=== PATIENT | female | born 1945 | race Caucasian/White ===

== ENCOUNTER 2017-05-30 11:54 | Inpatient (IN) | payer OTHER ==
[2017-05-30 12:13] VITALS: BMI 50.6
--- NOTE | 2017-05-30 12:39 | PDOC ---
Attending Attestation - HPI HPI: 05/30/17 13:25 The patient is a 72 year old female, with a significant past medical history of COPD(on 2 L O2 at home), AFib(on), diabetes, hypertension, and hyperlipidemia, who presents to the emergency department sent by PCP Dr. Bond for evaluation of worsening dyspnea over the past 2 weeks. The patient reports progressively worsening shortness of breath, worse with exertion or when speaking over the past 2 weeks. Today, patient reports visiting her PCP Dr. Bond, who recommended she follow-up in the ED for further evaluation. Patient denies any associated chest pain, diaphoresis, or palpitations. She denies any recent fever , chills, cough, or sore throat. She denies any abdominal pain, nausea, or vomiting. She denies any recent travel or sick contacts. - Medical Decision Making 05/30/17 13:25 Documentation prepared by Josey Suresh, acting as medical office specialist for Daniella Carpenter MD. EXAM: CXR INTERPRETED BY: Dr. Landaverde REVIEWED BY: Dr. Carpenter IMPRESSION: The heart size is enlarged. There are increased interstitial markings diffusely suggesting pulmonary vascular congestion. No acute infiltrates or pleural effusions are present. SUMMARY: Cardiomegaly and mild congestion. <Josey Suresh - Last Filed: 05/30/17 17:55> - Resident Resident Name: Dilan Alicea - ED Attending Attestation I have performed the following: I have examined & evaluated the patient, The case was reviewed & discussed with the resident, I agree w/resident's findings & plan, Exceptions are as noted - Physicial Exam PE: GENERAL: Awake, alert, and fully oriented, in no acute distress HEAD: No signs of trauma EYES: PERRLA, EOMI, sclera anicteric, conjunctiva clear ENT: Auricles normal inspection, hearing grossly normal, nares patent, oropharynx clear without exudates. Moist mucosa NECK: Normal ROM, supple, no lymphadenopathy, JVD, or masses LUNGS: Dec air entry B/L, R>>L, +crackles at bases. HEART: Regular rate and rhythm, normal S1 and S2, no murmurs, rubs or gallops ABDOMEN: Soft, nontender, normoactive bowel sounds. No guarding, no rebound. No masses EXTREMITIES: Normal range of motion, severe BLE pitting edema with chronic venous stasis changes. No clubbing or cyanosis. No cords, erythema, or tenderness NEUROLOGICAL: Cranial nerves II through XII grossly intact. Normal speech. Motor and sensation intact. SKIN: Warm, Dry, normal turgor, no rashes or lesions noted. - Medical Decision Making Pt presented with worsening SOB, found to have severe anemia. Will admit for transfusion. <Daniella Carpenter - Last Filed: 06/01/17 12:03>
[2017-05-30] MEDS ORDERED: ALBUTEROL SO4 2.5/IPRATROPIUM 0.5 INH SOL 3 ML VIAL.NEB. NEB ONE ×2 (12:56→13:09)
[2017-05-30] MEDS ORDERED: predniSONE 20 MG TABLET (UD) PO ONE (12:57)
--- NOTE | 2017-05-30 12:58 | PDOC ---
History of Present Illness - General Chief Complaint: Shortness of Breath Stated Complaint: SOB (PCP SENT) Time Seen by Provider: 05/30/17 12:27 - History of Present Illness Initial Comments: 05/30/17 13:21 72F with pmh of COPD on 2L of O2 at home, A-Fib on xarelto, CHF and DM2 presenting with exacerbation of her dyspnea and weakness for the past week. Patient saw Dr. Bond this morning who referred them to the ER. Patient lives alone, not mobile due to pain in her legs due to venous stasis. Looks uncomfortable, 3 words at a time. 05/30/17 13:28 Past History - Past Medical History Allergies/Adverse Reactions: Allergies Allergy/AdvReac Type Severity Reaction Status Date / Time No Known Allergies Allergy Verified 05/30/17 12:09 Home Medications: Ambulatory Orders Amiodarone HCl 200 mg PO DAILY 05/30/17 Furosemide [Lasix] 20 mg PO TUTH 05/30/17 Metformin HCl 500 mg PO BID 05/30/17 Rivaroxaban [Xarelto -] 20 mg PO DAILY 05/30/17 Spironolactone 25 mg PO DAILY 05/30/17 Cardiac Disorders: Yes (ATRIAL FIB.) COPD: Yes (OXYGEN 2LPM N/C AT HOME.) Diabetes: Yes HTN: Yes Hypercholesterolemia: Yes - Suicide/Smoking/Psychosocial Hx Smoking History: Former smoker Have you smoked in the past 12 months: No If you are a former smoker, when did you quit?: 1970 Information on smoking cessation initiated: No Hx Alcohol Use: No Drug/Substance Use Hx: No Substance Use Type: None Review of Systems - Review of Systems Able to Perform ROS?: Yes Is the patient limited [place]uneian proficient: No Constitutional: Yes: Weakness HEENTM: No: Symptoms Reported Respiratory: Yes: See HPI, Shortness of Breath, SOB with Exertion, SOB at Rest. No: Hemoptysis Cardiac (ROS): No: Symptoms Reported ABD/GI: No: Symptoms Reported : No: Symptoms Reported All Other Systems: Reviewed and Negative *Physical Exam - Vital Signs Last Vital Signs Temp Pulse Resp BP Pulse Ox 98.3 F 82 20 149/62 96 05/30/17 12:08 05/30/17 12:08 05/30/17 12:08 05/30/17 12:08 05/30/17 12:08 - Physical Exam General Appearance: Yes: Nourished, Appropriately Dressed. No: Apparent Distress HEENT: positive: EOMI, JULIANA, Normal ENT Inspection Respiratory/Chest: positive: Chest Tender, Lungs Clear, Decreased Breath Sounds. negative: Respiratory Distress Cardiovascular: positive: Regular Rhythm, Regular Rate, S1, S2 Gastrointestinal/Abdominal: positive: Normal Bowel Sounds, Flat, Soft. negative : Tender ED Treatment Course - LABORATORY CBC & Chemistry Diagram: 05/30/17 13:10 05/30/17 13:10 Medical Decision Making - Medical Decision Making 05/30/17 17:02 COPD/CHF workup. Patient severely anemic, negative guaiac. Obtain consent for transfusion. Spoke to Dr. Bond who ask for patient to be admitted. Admitted to hospitalist *DC/Admit/Observation/Transfer Diagnosis at time of Disposition: Anemia - Discharge Dispostion Admit: Yes - Referrals - Patient Instructions - Post Discharge Activity
[2017-05-30] MEDS ORDERED: predniSONE 20 MG TABLET (UD) ONE (13:09)
[2017-05-30 13:29] LABS: BASO % 0.8 % (0-2.0); EOS % 0.5 % (0-4.5); LYMPH % 6.7 % (8-40); MCH 20.8 pg (25.7-33.7); MCHC 29.3 g/dl (32.0-36.0); MEAN CELL VOLUME 70.9 fl (80-96); MEAN PLT VOLUME 8.1 fl (7.5-11.1); MONO % 7.9 % (3.8-10.2); NEUT % 84.1 % (42.8-82.8); PLATELET COUNT 375 K/MM3 (134-434); RBC 2.54 M/mm3 (3.60-5.2); RDW 20.7 % (11.6-15.6); WHITE BLOOD COUNT 6.7 K/mm3 (4.0-10.0)
[2017-05-30 13:34] LABS: HEMOGLOBIN 5.3 GM/dL (10.7-15.3)
[2017-05-30] MEDS ORDERED: METHOCARBAMOL 500 MG TABLET PO ONE (13:40)
[2017-05-30] MEDS ORDERED: traMADol HCL 50 MG TABLET PO ONE (13:41)
[2017-05-30 13:45] LABS: URINE APPEARANCE CLEAR; URINE BILIRUBIN NEGATIVE (NEGATIVE); URINE COLOR LTYELLOW; URINE GLUCOSE (UA) NEGATIVE (NEGATIVE); URINE KETONE NEGATIVE (NEGATIVE); URINE LEUK ESTERASE TRACE (NEGATIVE); URINE NITRITE NEGATIVE (NEGATIVE); URINE PROTEIN NEGATIVE (NEGATIVE); URINE UROBILINOGEN NEGATIVE mg/dL (0.2-1.0)
[2017-05-30 13:48] LABS: EPI CELLS RARE /HPF (FEW); URINE MUCUS RARE
[2017-05-30 13:50] LABS: INR 1.49 (0.82-1.09); PROTHROMBIN TIME (PATIENT) 16.8 SEC (9.98-11.88)
[2017-05-30 13:53] LABS: ACTIVATED PTT 27.2 SECONDS (26.9-34.4)
[2017-05-30 13:54] LABS: VENOUS PC02 33.4 mmHg (38-52); VENOUS PH 7.37 (7.32-7.42); VENOUS PO2 60.7 mmHg (28-48)
[2017-05-30 14:03] LABS: ALBUMIN 3.4 g/dl (3.4-5.0); ALK PHOS 88 U/L (45-117); ANION GAP 13 (8-16); BILIRUBIN,TOTAL 0.6 mg/dL (0.2-1.0); BLOOD UREA NITROGEN 32 mg/dL (7-18); CALCIUM 8.4 mg/dL (8.5-10.1); CHLORIDE 110 mmol/L (98-107); CO2 19 mmol/L (21-32); CREATININE 1.6 mg/dL (0.55-1.02); GLUCOSE,RANDOM 109 mg/dL (74-106); POTASSIUM 4.7 mmol/L (3.5-5.1); SGOT/AST 9 U/L (15-37); SGPT/ALT 10 U/L (12-78); SODIUM 142 mmol/L (136-145); TOT PROT 6.2 g/dl (6.4-8.2)
[2017-05-30 14:06] LABS: N-TERMINAL BNP 941.01 pg/ml (5-125)
--- NOTE | 2017-05-30 14:41 | HP ---
CHIEF COMPLAINT: Dyspnea, SOB , generalized weakness PCP: HISTORY OF PRESENT ILLNESS: 72 year old female with pmhx of copd(home o2 ), Afib (on xarelto), DMII, HTN, HLD, peripheral venous stasis, h/o DVT who presented to the ED with worsening sob, dyspnea and generalized weakness was found to have hgb of 5.3 and was admitted to [facility] for further evaluation. pt reports generalized weakness since April 2017 and has been worsening for the last 2 weeks that she could not reach to bath room. pt reports light headedness when she stand up suddenly,she also complains of sob , sever fatigue , dyspnea with minimal exertion ,she sleep in chair , she could not lay flat. She reports couple times of chest pain sharp med sternal radiating to her left shoulder and left arm.the pain happened after eating but she denies any pain on exertion. She reports tingling sensation in both hands since last month. Denies any headache, sore throat, recent cold or sick contact. she reports coughing with clear phlegm and post nasal drip. She reports constipation (BM q3-4 days) but she denies abdominal N/ V or GERD symptoms. She denies any urinary symptoms, she reports chronic swelling in her LE for the last 2 years. Pt has a h/o DVT after she broke her right thigh and stayed in bed for 3 months she was on warfarin for 6 months followed by maxime. IN ED pt was found to have HGb 5.3 . pt denies any hemetemesis or blood in stool, black stool. she denies using any NSAIDS. last CBC 9 months ago was normal per her PCP. last seen by him on April for SOB. Her paper sample clerk is DR. Vicente Buck( [phone]) in [facility]. ER course was notable for: (1)Hgb 5.3 (2)BUN/Cr 32/1.6 (3)transfusion 2 units of blood (4) BIPAP , prednison 40 once , Duoneb Recent Travel:denies PAST MEDICAL HISTORY: AFIb, COPD , HTN , HLD, DM2 , peripheral venous stasis.DVT lower ext. PAST SURGICAL HISTORY: left knee replacement , s/p right femoral fx with no surgery. Social History: Smoking:quit 1969 , Alcohol:denies Drugs: denies Family History: Brother with heart attach at age of 50, father at age of 80 (unknown reason ), Mother at age of 64 (unknown reason ) Allergies No Known Allergies Allergy (Verified 05/30/17 12:09) HOME MEDICATIONS: Home Medications Medication Instructions Recorded Amiodarone HCl 200 mg PO DAILY 05/30/17 Furosemide [Lasix] 20 mg PO TUTH 05/30/17 Metformin HCl 500 mg PO BID 05/30/17 Rivaroxaban [Xarelto -] 20 mg PO DAILY 05/30/17 Spironolactone 25 mg PO DAILY 05/30/17 REVIEW OF SYSTEMS (dark bolds are positive ) CONSTITUTIONAL: Absent: fever, chills, diaphoresis, generalized weakness, malaise, loss of appetite, weight change HEENT: Absent: rhinorrhea, nasal congestion, throat pain, throat swelling, difficulty swallowing, mouth swelling, ear pain, eye pain, visual changes, post nasal drip. CARDIOVASCULAR: Absent: chest pain, syncope, palpitations, irregular heart rate, lightheadedness , peripheral edema RESPIRATORY: Absent: cough, shortness of breath, dyspnea with exertion, orthopnea, wheezing, stridor, hemoptysis GASTROINTESTINAL: Absent: abdominal pain, abdominal distension, nausea, vomiting, diarrhea, constipation, melena, hematochezia GENITOURINARY: Absent: dysuria, frequency, urgency, hesitancy, hematuria, flank pain, genital pain MUSCULOSKELETAL: Absent: myalgia, arthralgia, joint swelling, back pain, neck pain SKIN: Absent: rash, itching, pallor HEMATOLOGIC/IMMUNOLOGIC: Absent: easy bleeding, easy bruising, lymphadenopathy, frequent infections ENDOCRINE: Absent: unexplained weight gain, unexplained weight loss, heat intolerance, cold intolerance NEUROLOGIC: Absent: headache, focal weakness or paresthesias in hands , dizziness, unsteady gait, seizure, mental status changes, bladder or bowel incontinence PSYCHIATRIC: Absent: anxiety, depression, suicidal or homicidal ideation, hallucinations. PHYSICAL EXAMINATION Vital Signs - 24 hr 05/30/17 05/30/17 05/30/17 12:08 12:56 13:57 Temperature 98.3 F Pulse Rate 82 80 Respiratory 20 Rate Blood Pressure 149/62 O2 Sat by Pulse 96 95 100 Oximetry (%) GENERAL: Awake, alert, and fully oriented, in mild distress. HEAD: Normal with no signs of trauma. EYES: Pupils equal, round and reactive to light, extraocular movements intact, sclera anicteric, conjunctiva clear. EARS, NOSE, THROAT:dry mucous membranes. NECK: Normal range of motion, supple without lymphadenopathy, JVD, LUNGS: tachypnech, clear to auscultation bilaterally. No wheezes, and no crackles. HEART: Irregular Irregular , normal S1 and S2 , 3/6 holosystolic murmur in LUSB and apex , no rubs or gallop. ABDOMEN: Obese ,Soft, non tender, not distended, normoactive bowel sounds, no guarding, no rebound, UPPER EXTREMITIES: 2+ pulses, warm, well-perfused. No cyanosis. No clubbing. No peripheral edema. LOWER EXTREMITIES: 2+ pulses, warm, well-perfused. No calf tenderness. +2 peripheral edema. left leg :strength 2/5 in hip flexion ,foot dorsal felxion and plantar flexion is 5/5.sensation intact B/L NEUROLOGICAL: Cranial nerves II-XII intact. Normal speech. gait not observed. PSYCHIATRIC: Cooperative. Good eye contact. Appropriate mood and affect. SKIN: Warm, dry, peripheral venous changes with lymph edema Laboratory Results - last 24 hr 05/30/17 05/30/17 05/30/17 12:00 13:10 13:10 WBC 6.7 RBC 2.54 L Hgb 5.3 L* Hct 18.0 L MCV 70.9 L MCH 20.8 L MCHC 29.3 L RDW 20.7 H Plt Count 375 MPV 8.1 Neutrophils % 84.1 H Lymphocytes % 6.7 L Monocytes % 7.9 Eosinophils % 0.5 Basophils % 0.8 Retic Count PT with INR INR PTT (Actin FS) VBG pH 7.37 POC VBG pCO2 33.4 L POC VBG pO2 60.7 H Mixed VBG HCO3 18.9 L Sodium 142 Potassium 4.7 Chloride 110 H Carbon Dioxide 19 L Anion Gap 13 BUN 32 H Creatinine 1.6 H Creat Clearance w eGFR 31.51 Random Glucose 109 H Calcium 8.4 L Total Bilirubin 0.6 AST 9 L ALT 10 L Alkaline Phosphatase 88 LD Total Creatine Kinase 28 Troponin I 0.02 B-Natriuretic Peptide 941.01 H Total Protein 6.2 L Albumin 3.4 Urine Color Urine Appearance Urine pH Ur Specific Shasta Urine Protein Urine Glucose (UA) Urine Ketones Urine Blood Urine Nitrite Urine Bilirubin Urine Urobilinogen Ur Leukocyte Esterase Urine WBC (Auto) Urine RBC (Auto) Ur Epithelial Cells Urine Mucus Stool Occult Blood 05/30/17 05/30/17 05/30/17 13:21 13:37 13:55 WBC RBC Hgb Hct MCV MCH MCHC RDW Plt Count MPV Neutrophils % Lymphocytes % Monocytes % Eosinophils % Basophils % Retic Count 2.74 H PT with INR 16.80 H INR 1.49 H PTT (Actin FS) 27.2 VBG pH POC VBG pCO2 POC VBG pO2 Mixed VBG HCO3 Sodium Potassium Chloride Carbon Dioxide Anion Gap BUN Creatinine Creat Clearance w eGFR Random Glucose Calcium Total Bilirubin AST ALT Alkaline Phosphatase LD Total Creatine Kinase Troponin I B-Natriuretic Peptide Total Protein Albumin Urine Color Ltyellow Urine Appearance Clear Urine pH 5.0 Ur Specific [place] 1.016 Urine Protein Negative Urine Glucose (UA) Negative Urine Ketones Negative Urine Blood Negative Urine Nitrite Negative Urine Bilirubin Negative Urine Urobilinogen Negative Ur Leukocyte Esterase Trace Urine WBC (Auto) 1 Urine RBC (Auto) <1 Ur Epithelial Cells Rare Urine Mucus Rare Stool Occult Blood 05/30/17 05/30/17 13:55 13:55 WBC RBC Hgb Hct MCV MCH MCHC RDW Plt Count MPV Neutrophils % Lymphocytes % Monocytes % Eosinophils % Basophils % Retic Count PT with INR INR PTT (Actin FS) VBG pH POC VBG pCO2 POC VBG pO2 Mixed VBG HCO3 Sodium Potassium Chloride Carbon Dioxide Anion Gap BUN Creatinine Creat Clearance w eGFR Random Glucose Calcium Total Bilirubin AST ALT Alkaline Phosphatase LD Total 201 Creatine Kinase Troponin I B-Natriuretic Peptide Total Protein Albumin Urine Color Urine Appearance Urine pH Ur Specific [place] Urine Protein Urine Glucose (UA) Urine Ketones Urine Blood Urine Nitrite Urine Bilirubin Urine Urobilinogen Ur Leukocyte Esterase Urine WBC (Auto) Urine RBC (Auto) Ur Epithelial Cells Urine Mucus Stool Occult Blood Negative CBC, BMP 05/30/17 13:10 05/30/17 13:10 05/30/2017 CXR cardiomegaly with mild congestion EKG: QTC 524, NSR with new RBBB, ASSESSMENT/PLAN: 72 year old female with pmhx of copd(home o2 ), Afib (on xarelto), DMII, HTN, HLD, peripheral venous stasis, h/o DVT who presented to the ED with worsening sob, dyspnea and generalized weakness was found to have hgb of 5.3 and was admitted to tele for further evaluation. # Sever symptomatic microcytic anemia * pt has light headedness , sever fatigue, generalized weakness for last 2 months * presented with hgb 5.3 * monitor H/H q 6hr * Iron studies , b12, folic acid , TSH * 2 large IV pore * Type and screen, coagulation study * occult negative in ED * transfuse 2 units of PRBCs * start lasix 20 mg po before the transfusion and asses for over loaded after the first units, give another 2o mg lasix if seems over loaded. * GI consult for possible EGD/ Colonoscopy # dyspnes due to COPD exacerbation vs CHF exacerbation * previous smoker ,pt has cough with clear phlegm , on o2 at home , no wheezes , no accessory muscle use. * BIPAP * Duo-neb * repeat cxr in AM * received [id number] mg po in ED * CXray with cardiomegaly and mild congestion * becarbonate 19 low * continue spirnolactone , given lasix 20 mg and will reassess her volume status * F/U ECHO # JOHNY likely pre renal azotemia due to low hgb and low oral intake * transfuse 2 units * Monitor bun/cr # AFIB * rate controlled * Cardiology consult * Cont Amiodarone 200 mg po daily * hold xarelto due to possible bleed * lunchroom monitor * Echo cardiogram * TropI negative , trend # DMII * last HGBA1c 5.2 per pt * Hold metformin * ISS * BGM TID AC * Diabetic diet # Morbid obesity * consulted about losing weight and modified life style # HTN * will give lasix 20 mg once before the transfusion * continue Spirnolactone 25 mg po daily # HLD * not on any meds # peripheral venous changes * chronic for the last 2 years * hold xarelto * # H/O left femoral fx 2 years ago, * no surgery was performed , was bed bounded for 3 months after that # H/O DVT , * hold on xarelto in term of possible bleeding * US lower ext # FEN * no standing fluids * monitor BMP * npo for now # Proph * DVTS: scds apply both legs * GI: protonix 40 mg IV BID # Dispo * admit to tele * Monitor CBC Q 6 hr * trend trop Visit type - Emergency Visit Emergency Visit: Yes ED Registration Date: 05/30/17 Care time: The patient presented to the Emergency Department on the above date and was hospitalized for further evaluation of their emergent condition. - New Patient This patient is new to me today: Yes Date on this admission: 05/30/17 - Critical Care Critical Care patient: No Hospitalist Screening - Colonoscopy Questionnaire Colonoscopy Questionnaire: Colonoscopy Questionnaire - Patient: 50 - 75 years old and never had a screening colonoscopy: Unknown History of colon or rectal polyps, or CA: Unknown History of IBD, Crohn's disease or UC: No History of abdominal radiation therapy as a child: No - Relative: 1 with colon or rectal CA, or polyps at age 60 or younger: Unknown Colon or rectal CA diagnosed at age 45 or younger: No Multiple relatives with colon or rectal CA: No - Outcome: Screening Result: Negative Screen
--- NOTE | 2017-05-30 14:43 | EKG ---
Test Reason : Blood Pressure : / mmHG Vent. Rate : 081 BPM Atrial Rate : 081 BPM P-R Int : 194 ms QRS Dur : 148 ms QT Int : 452 ms P-R-T Axes : 114 002 030 degrees QTc Int : 525 ms POOR DATA QUALITY, INTERPRETATION MAY BE ADVERSELY AFFECTED NORMAL SINUS RHYTHM RIGHT BUNDLE BRANCH BLOCK ABNORMAL ECG WHEN COMPARED WITH ECG OF 14-MAY-2008 06:50, RIGHT BUNDLE BRANCH BLOCK IS NOW PRESENT MINIMAL CRITERIA FOR ANTERIOR INFARCT ARE NO LONGER PRESENT Confirmed by KAIDEN SILVA, NIRAJ ([id number]) on 05/30/2017 2:43:17 PM Referred By: Confirmed By:NIRAJ RICHEY MD
--- NOTE | 2017-05-30 15:09 | HP ---
CC: Shortness of breath PCP: Dr. Bond HPI: Briefly, 72 yo F h/o COPD on home O2 2L and A-fib on xarelto sent by PCP due to shortness of breath for weeks. Pt endorses intermittent symptom of dyspnea in the last few weeks which has been off her baseline breathing status. Pt has never had EGD or colonoscopy. She denies dizziness, appetite change, chest pain, palpitation, hematochezia, melena, hematemesis. . PMH: HTN, HLD, NIDDM type II, a-fib PSH: L knee replacement Social History: former smoker Family History: non-contributory Allergy: NKDA Home Meds: Amiodarone HCl 200 mg PO DAILY 05/30/17 Furosemide [Lasix] 20 mg PO TUTH 05/30/17 Metformin HCl 500 mg PO BID 05/30/17 Rivaroxaban [Xarelto -] 20 mg PO DAILY 05/30/17 Spironolactone 25 mg PO DAILY 05/30/17 ROS: Constitutional: no fever or loss of appetite, no weakness or weight change HEENT: No headache, nasal congestion, sore throat, ear pain, vision change Skin: No rash or lesion Cardiovascular: No chest pain or sob Pulmonary: +dyspne, No cough (dry or productive), colored sputum Endocrine: No polyuria, polydipsia, skin /hair changes, heat/cold intolerance. GI: No active abd pain, nausea or vomiting : No frequency, urgency, dysuria, or hematuria. MSK: No joint or muscle pain Psychology: No depression, anxiety, or insomnia. Physical Examination Temp Pulse Resp BP Pulse Ox 98.3 F 81 16 144/46 100 05/30/17 12:08 05/30/17 14:48 05/30/17 14:48 05/30/17 14:48 05/30/17 14:48 General: On BiPAP moderate respiratory distress, unable to speak in full sentences, AAO x 3. appropriate to stated age. Eyes: PERRLA Neck: Supple with no LAD or masses. Lymph Nodes: No cervical or inguinal LAD. Cardiovascular: RRR, S1 and S2 normal, holosystolic murmur 4/6 Lungs: obscure lung sounds Abdomen: Normoactive bowel sounds. Non-distended, No tenderness even upon deep palpation, no guarding/rebound Extremeties: No peripheral edema CBCD WBC 6.7 K/mm3 (4.0-10.0) 05/30/17 13:10 RBC 2.54 M/mm3 (3.60-5.2) L 05/30/17 13:10 Hgb 5.3 GM/dL (10.7-15.3) L* 05/30/17 13:10 Hct 18.0 % (32.4-45.2) L 05/30/17 13:10 MCV 70.9 fl (80-96) L 05/30/17 13:10 MCHC 29.3 g/dl (32.0-36.0) L 05/30/17 13:10 RDW 20.7 % (11.6-15.6) H 05/30/17 13:10 Plt Count 375 K/MM3 (134-434) 05/30/17 13:10 MPV 8.1 fl (7.5-11.1) 05/30/17 13:10 CMP Sodium 142 mmol/L (136-145) 05/30/17 13:10 Potassium 4.7 mmol/L (3.5-5.1) 05/30/17 13:10 Chloride 110 mmol/L (98-107) H 05/30/17 13:10 Carbon Dioxide 19 mmol/L (21-32) L 05/30/17 13:10 Anion Gap 13 (8-16) 05/30/17 13:10 BUN 32 mg/dL (7-18) H 05/30/17 13:10 Creatinine 1.6 mg/dL (0.55-1.02) H 05/30/17 13:10 Creat Clearance w eGFR 31.51 (>60) 05/30/17 13:10 Calcium 8.4 mg/dL (8.5-10.1) L 05/30/17 13:10 Total Bilirubin 0.6 mg/dL (0.2-1.0) 05/30/17 13:10 AST 9 U/L (15-37) L 05/30/17 13:10 ALT 10 U/L (12-78) L 05/30/17 13:10 Alkaline Phosphatase 88 U/L (45-117) 05/30/17 13:10 Total Protein 6.2 g/dl (6.4-8.2) L 05/30/17 13:10 Albumin 3.4 g/dl (3.4-5.0) 05/30/17 13:10 Imaging: CXR on 05/31: questionable b/l pleural effusion and R middle infiltrate (my read) A/P: 72 yo F h/o a-fib on xarelto, chf and COPD admitted to telemetry for dyspnea. Dyspnea - Likely 2/2 acute anemia, cannot r/o COPD or CHF exacerbation * hold xarelto * transfuse 2 PRBC * lasix 20mg IVPUSH pre and btw transfusions * recheck CBC * anemia workup in progress * will need EDG and colonoscopy * GI and cardiology consult - Cont. BiPAP maintain O2 88-92% CHF - unknown type, will contact pt's leadership development consultant - f/u ECHO - lasix 20mg IVPUSH once - cardiology onboard a-fib - Rate and rhythm controlled - Hold xarelto - Cont. amiodarone FEN - Replete lytes prn - NPO on BiPAP Prophylaxis - DVT: hold xarelto; SCDs - GI: protonix 40mg BID Dispo - Admit to [facility] PGY2 Pager: [phone] Visit type - Emergency Visit Emergency Visit: Yes ED Registration Date: 05/30/17 Care time: The patient presented to the Emergency Department on the above date and was hospitalized for further evaluation of their emergent condition. - New Patient This patient is new to me today: Yes Date on this admission: 05/31/17 - Critical Care Critical Care patient: No
[2017-05-30] MEDS ORDERED: FUROSEMIDE 40 MG/4 ML INJECTABLE VIAL IVPUSH ONE (16:10)
--- NOTE | 2017-05-30 16:36 | PN ---
Teaching Attending Note Name of Resident: Taurus Anderson ATTENDING PHYSICIAN STATEMENT I saw and evaluated the patient. I reviewed the resident's note and discussed the case with the resident. I agree with the resident's findings and plan as documented. SUBJECTIVE: Patient is c/o being sob today and has been having difficulty breathing. for many weeks now, denies having any bloody stool, denies hematoemesis or hematochezia OBJECTIVE: Vital Signs Temperature 98.3 F 05/30/17 12:08 Pulse Rate 81 05/30/17 14:48 Respiratory Rate 16 05/30/17 14:48 Blood Pressure 144/46 05/30/17 14:48 O2 Sat by Pulse Oximetry (%) 100 05/30/17 14:48 CBCD WBC 6.7 K/mm3 (4.0-10.0) 05/30/17 13:10 RBC 2.54 M/mm3 (3.60-5.2) L 05/30/17 13:10 Hgb 5.3 GM/dL (10.7-15.3) L* 05/30/17 13:10 Hct 18.0 % (32.4-45.2) L 05/30/17 13:10 MCV 70.9 fl (80-96) L 05/30/17 13:10 MCHC 29.3 g/dl (32.0-36.0) L 05/30/17 13:10 RDW 20.7 % (11.6-15.6) H 05/30/17 13:10 Plt Count 375 K/MM3 (134-434) 05/30/17 13:10 MPV 8.1 fl (7.5-11.1) 05/30/17 13:10 CMP Sodium 142 mmol/L (136-145) 05/30/17 13:10 Potassium 4.7 mmol/L (3.5-5.1) 05/30/17 13:10 Chloride 110 mmol/L (98-107) H 05/30/17 13:10 Carbon Dioxide 19 mmol/L (21-32) L 05/30/17 13:10 Anion Gap 13 (8-16) 05/30/17 13:10 BUN 32 mg/dL (7-18) H 05/30/17 13:10 Creatinine 1.6 mg/dL (0.55-1.02) H 05/30/17 13:10 Creat Clearance w eGFR 31.51 (>60) 05/30/17 13:10 Random Glucose 109 mg/dL (74-106) H 05/30/17 13:10 Calcium 8.4 mg/dL (8.5-10.1) L 05/30/17 13:10 Total Bilirubin 0.6 mg/dL (0.2-1.0) 05/30/17 13:10 AST 9 U/L (15-37) L 05/30/17 13:10 ALT 10 U/L (12-78) L 05/30/17 13:10 Alkaline Phosphatase 88 U/L (45-117) 05/30/17 13:10 Total Protein 6.2 g/dl (6.4-8.2) L 05/30/17 13:10 Albumin 3.4 g/dl (3.4-5.0) 05/30/17 13:10 CARDIAC ENZYMES Creatine Kinase 28 IU/L (26-192) 05/30/17 13:10 Troponin I 0.02 ng/ml (0.00-0.05) 05/30/17 13:10 Current Medications Generic Name Dose Route Start Last Admin Trade Name Freq PRN Reason Stop Dose Admin Insulin Aspart 1 vial 05/30/17 16:30 Novolog Vial Sliding Scale - SQ TIDAC [facility] Protocol Pantoprazole Sodium 40 mg 05/30/17 1601 Protonix - IV BID [facility] Home Medications Medication Instructions Recorded Amiodarone HCl 200 mg PO DAILY 05/30/17 Furosemide [Lasix] 20 mg PO TUTH 05/30/17 Metformin HCl 500 mg PO BID 05/30/17 Rivaroxaban [Xarelto -] 20 mg PO DAILY 05/30/17 Spironolactone 25 mg PO DAILY 05/30/17 PE: On Bipap Chest: decreased BS BL, on Bipap Heart: S1S2 positive, GYPSY 3/6 LSB abdomen: laRGE ABDOMEN, NT,NR ext: pulses are positive, positive for chronic changes with lymphedema with yellow crusting of lower extremeties ASSESSMENT AND PLAN: Patient is a 72 yo Female with h/o a-fib on xarelto, chf and COPD admitted to telemetry for having SOB and was found to have hemoglobin of 5.3. # Acute severe anemia possible due to blood loss , was found to have hemoglobin of 5.3 as per her PMD , she was within normal range 9 months ago, Protonix 40mg IV BID, type and cross and transfuse 2 units, give lasix 20mg IV x one dose prior to transfusion, will re-access if the second dose of lasix is needed in between transfusion , Hold Xarelto dose now. GI consult Dr. Koo, NPO for now # Acute severe microcytic anemia , will monitor, will transfuse 2 units # Hx of COPD on Bipap bc of SOB since is severely anemic # Afib rate controlled on Xarelto, will hold off for now, On Amiodarone , will check TSH level, cardiology consult . CEq6 x 1 more set, ekg in am # Hx of DVT on Xarelto # T2DM on Metformin hold it for now, sliding scale with coverage. # ARF due to acute blood loss, hold Metformin, transfuse , repeat H/H, monitor # Morbid Obesity will admit her to tele NPO for now DVT px: Xarelto, will hold it for now.
[2017-05-30] MEDS: INSULIN SLIDING SCALE (NOVOLOG) 1 VIAL SQ SCH (16:38)
[2017-05-30] MEDS ORDERED: SPIRONOLACTONE 25 MG TABLET (FP) ONE (16:42)
[2017-05-30] MEDS ORDERED: FUROSEMIDE 40 MG/4 ML INJECTABLE VIAL ONE (16:42)
[2017-05-30] MEDS ORDERED: PANTOPRAZOLE SODIUM 40 MG VIAL ONE (16:43)
[2017-05-30] MEDS: SPIRONOLACTONE 25 MG TABLET (FP) PO SCH (16:51)
[2017-05-30] MEDS: PANTOPRAZOLE SODIUM 40 MG VIAL IVPUSH SCH ×2 (16:51→22:13)
[2017-05-30 17:08] LABS: MCH 20.5 pg (25.7-33.7); MEAN CELL VOLUME 70.7 fl (80-96); MEAN PLT VOLUME 7.8 fl (7.5-11.1); PLATELET COUNT 368 K/MM3 (134-434); RBC 2.55 M/mm3 (3.60-5.2); RDW 20.9 % (11.6-15.6); WHITE BLOOD COUNT 6.3 K/mm3 (4.0-10.0)
[2017-05-30 17:16] LABS: HEMOGLOBIN 5.2 GM/dL (10.7-15.3)
[2017-05-30] MEDS ORDERED: PANTOPRAZOLE 40 MG TABLET (FP) PO SCH (22:00)
[2017-05-31 01:13] LABS: HEMATOCRIT 20.7 % (32.4-45.2); MCH 23.4 pg (25.7-33.7); MCHC 31.7 g/dl (32.0-36.0); MEAN CELL VOLUME 73.9 fl (80-96); MEAN PLT VOLUME 8.3 fl (7.5-11.1); PLATELET COUNT 313 K/MM3 (134-434); RBC 2.81 M/mm3 (3.60-5.2); RDW 22.5 % (11.6-15.6); WHITE BLOOD COUNT 5.2 K/mm3 (4.0-10.0)
[2017-05-31 01:28] LABS: HEMOGLOBIN 6.6 GM/dL (10.7-15.3)
[2017-05-31 02:45] LABS: HEMATOCRIT 20.8 % (32.4-45.2); MCH 22.9 pg (25.7-33.7); MEAN PLT VOLUME 8.4 fl (7.5-11.1); PLATELET COUNT 326 K/MM3 (134-434); RDW 21.8 % (11.6-15.6); WHITE BLOOD COUNT 5.1 K/mm3 (4.0-10.0)
[2017-05-31 02:53] LABS: HEMOGLOBIN 6.4 GM/dL (10.7-15.3)
[2017-05-31] MEDS ORDERED: FUROSEMIDE 40 MG/4 ML INJECTABLE VIAL IVPUSH ONE (02:59)
[2017-05-31 06:06] LABS: TRANSFERRIN 292 mg/dL (200-370)
[2017-05-31] MEDS: INSULIN SLIDING SCALE (NOVOLOG) 1 VIAL SQ SCH ×3 (06:22→17:03)
[2017-05-31 10:15] LABS: BASO % 0.5 % (0-2.0); EOS % 0.1 % (0-4.5); HEMATOCRIT 23.6 % (32.4-45.2); HEMOGLOBIN 7.7 GM/dL (10.7-15.3); LYMPH % 10.2 % (8-40); MCH 24.2 pg (25.7-33.7); MCHC 32.5 g/dl (32.0-36.0); MEAN CELL VOLUME 74.4 fl (80-96); MEAN PLT VOLUME 7.9 fl (7.5-11.1); MONO % 9.9 % (3.8-10.2); NEUT % 79.3 % (42.8-82.8); PLATELET COUNT 314 K/MM3 (134-434); RBC 3.17 M/mm3 (3.60-5.2); RDW 21.4 % (11.6-15.6); WHITE BLOOD COUNT 7.2 K/mm3 (4.0-10.0)
[2017-05-31 10:24] LABS: INR 1.16 (0.82-1.09); PROTHROMBIN TIME (PATIENT) 13.1 SEC (9.98-11.88)
[2017-05-31 10:26] LABS: ACTIVATED PTT 25.7 SECONDS (26.9-34.4)
--- NOTE | 2017-05-31 11:22 | CON.CARD ---
Cardiology Consult (text) - Consultation Consultation Note: cc: [facility] hpi: 72 f hx copd, afib, dm, htn, hld, venous insuff/le edema, here with ceja. Past 2 wks with gradually worsening ceja. Then with some rest sob/chest tightness past few days so came to er. No palps, dizzy, loc, pnd, orthopnea. + chronic le edema. Found to have severe anemia. pmh: per hpi psh: nc social: no tob fam: no premature cad ros: per hpi; no nvd, fever, muscle pain, gib, hematuria, dysuria, suresh, vision changes, cough meds: Home Medications Medication Instructions Recorded Amiodarone HCl 200 mg PO DAILY 05/30/17 Furosemide [Lasix] 20 mg PO TUTH 05/30/17 Metformin HCl 500 mg PO BID 05/30/17 Rivaroxaban [Xarelto -] 20 mg PO DAILY 05/30/17 Spironolactone 25 mg PO DAILY 05/30/17 pe: Vital Signs Period Temp Pulse Resp BP Sys/[place] Pulse Ox Last 24 Hr 97.9 F-98.3 F 55-82 16-24 126-160/46-66 95-100 nad no jvd rrr s1s2 no r/g, +m cta bl nl eff aaox3 pitting/nonpitting edema le bl with chronic stasis changes +dp pt no carotid bruits abd nt nd pos bs no jaundice diaphoresis Laboratory Last Values WBC 7.2 K/mm3 (4.0-10.0) D 05/31/17 09:40 RBC 3.17 M/mm3 (3.60-5.2) L 05/31/17 09:40 Hgb 7.7 GM/dL (10.7-15.3) L D 05/31/17 09:40 Hct 23.6 % (32.4-45.2) L 05/31/17 09:40 MCV 74.4 fl (80-96) L 05/31/17 09:40 MCH 24.2 pg (25.7-33.7) L 05/31/17 09:40 MCHC 32.5 g/dl (32.0-36.0) 05/31/17 09:40 RDW 21.4 % (11.6-15.6) H 05/31/17 09:40 Plt Count 314 K/MM3 (134-434) 05/31/17 09:40 MPV 7.9 fl (7.5-11.1) 05/31/17 09:40 Neutrophils % 79.3 % (42.8-82.8) 05/31/17 09:40 Lymphocytes % 10.2 % (8-40) D 05/31/17 09:40 Monocytes % 9.9 % (3.8-10.2) 05/31/17 09:40 Eosinophils % 0.1 % (0-4.5) 05/31/17 09:40 Basophils % 0.5 % (0-2.0) 05/31/17 09:40 Retic Count 2.74 % (0.5-1.5) H 05/30/17 13:55 Haptoglobin 255 mg/dL (34-200) H 05/30/17 13:55 PT with INR 13.10 SEC (9.98-11.88) H 05/31/17 09:40 INR 1.16 (0.82-1.09) H 05/31/17 09:40 PTT (Actin FS) 25.7 SECONDS (26.9-34.4) L 05/31/17 09:40 VBG pH 7.37 (7.32-7.42) 05/30/17 12:00 POC VBG pCO2 33.4 mmHg (38-52) L 05/30/17 12:00 POC VBG pO2 60.7 mmHg (28-48) H 05/30/17 12:00 Mixed VBG HCO3 18.9 meq/L (19-25) L 05/30/17 12:00 Sodium 142 mmol/L (136-145) 05/30/17 13:10 Potassium 4.7 mmol/L (3.5-5.1) 05/30/17 13:10 Chloride 110 mmol/L (98-107) H 05/30/17 13:10 Carbon Dioxide 19 mmol/L (21-32) L 05/30/17 13:10 Anion Gap 13 (8-16) 05/30/17 13:10 BUN 32 mg/dL (7-18) H 05/30/17 13:10 Creatinine 1.6 mg/dL (0.55-1.02) H 05/30/17 13:10 Creat Clearance w eGFR 31.51 (>60) 05/30/17 13:10 POC Glucometer 132 UNITS (80-120) 05/31/17 06:14 Random Glucose 109 mg/dL (74-106) H 05/30/17 13:10 Calcium 8.4 mg/dL (8.5-10.1) L 05/30/17 13:10 Transferrin 292 mg/dL (200-370) 05/30/17 13:55 Ferritin 8.703 ng/ml (6.9-282.5) 05/30/17 13:55 Total Bilirubin 0.6 mg/dL (0.2-1.0) 05/30/17 13:10 AST 9 U/L (15-37) L 05/30/17 13:10 ALT 10 U/L (12-78) L 05/30/17 13:10 Alkaline Phosphatase 88 U/L (45-117) 05/30/17 13:10 LD Total 201 U/L (84-246) 05/30/17 13:55 Creatine Kinase 28 IU/L (26-192) 05/30/17 13:10 Troponin I 0.02 ng/ml (0.00-0.05) 05/31/17 00:40 B-Natriuretic Peptide 941.01 pg/ml (5-125) H 05/30/17 13:10 Total Protein 6.2 g/dl (6.4-8.2) L 05/30/17 13:10 Albumin 3.4 g/dl (3.4-5.0) 05/30/17 13:10 Urine Color Ltyellow 05/30/17 13:37 Urine Appearance Clear 05/30/17 13:37 Urine pH 5.0 (5.0-8.0) 05/30/17 13:37 Ur Specific [place] 1.016 (1.001-1.035) 05/30/17 13:37 Urine Protein Negative (NEGATIVE) 05/30/17 13:37 Urine Glucose (UA) Negative (NEGATIVE) 05/30/17 13:37 Urine Ketones Negative (NEGATIVE) 05/30/17 13:37 Urine Blood Negative (NEGATIVE) 05/30/17 13:37 Urine Nitrite Negative (NEGATIVE) 05/30/17 13:37 Urine Bilirubin Negative (NEGATIVE) 05/30/17 13:37 Urine Urobilinogen Negative mg/dL (0.2-1.0) 05/30/17 13:37 Ur Leukocyte Esterase Trace (NEGATIVE) 05/30/17 13:37 Urine WBC (Auto) 1 /hpf (3-5) 05/30/17 13:37 Urine RBC (Auto) <1 /hpf (0-3) 05/30/17 13:37 Ur Epithelial Cells Rare /HPF (FEW) 05/30/17 13:37 Urine Mucus Rare 05/30/17 13:37 Stool Occult Blood Negative (NEGATIVE) 05/30/17 13:55 Blood Type O POSITIVE 05/30/17 13:30 Antibody Screen Negative 05/30/17 13:30 Crossmatch See Detail 05/30/17 13:30 ecg 05/30/17: sr, rbbb, nl intervals, no st changes tele: sr cxr: mild congestion a/p: 72 f hx copd, afib, dm, htn, hld, venous insuff/le edema, here with ceja. sob, cp, anemia: -no signs chf or acs (trop negx3) -likely sxs due to severe anemia with hgb in 5s. After prbcs pt reports feeling better. -check echo. anemia w/u per GI. No cardiac contraindications to egd/foc. pafib: -in sr now -cont amio -was on xarelto, holding due to severe anemia htn: -cont aldactone venous insuff/le edema: -cont aldactone. pt takes prn lasix 20 at home, approx twice a week -check echo
[2017-05-31 11:26] LABS: ALBUMIN 3.4 g/dl (3.4-5.0); ALK PHOS 75 U/L (45-117); ANION GAP 10 (8-16); BILIRUBIN,TOTAL 1.5 mg/dL (0.2-1.0); BLOOD UREA NITROGEN 32 mg/dL (7-18); CALCIUM 7.9 mg/dL (8.5-10.1); CHLORIDE 110 mmol/L (98-107); CO2 22 mmol/L (21-32); CREATININE 1.6 mg/dL (0.55-1.02); GLUCOSE,RANDOM 89 mg/dL (74-106); POTASSIUM 4.1 mmol/L (3.5-5.1); SGOT/AST 5 U/L (15-37); SGPT/ALT 8 U/L (12-78); SODIUM 142 mmol/L (136-145); TOT PROT 5.8 g/dl (6.4-8.2)
--- NOTE | 2017-05-31 11:40 | CON.GI ---
Consult Consult Specialty:: GI Reason for Consultation:: Symptomatic anemia - History of Present Illness History of Present Illness: Chart reviewed. Per initial intake: 72 year old female with pmhx of copd (home O2 ), Afib (on xarelto), DMII, HTN, HLD, peripheral venous stasis, h/o DVT who presented to the ED with worsening sob, dyspnea and generalized weakness was found to have hgb of 5.3 and was admitted to [facility] for further evaluation. Pt reports generalized weakness since April 2017 and has been worsening for the last 2 weeks that she could not reach to bath room. pt reports light headedness when she stand up suddenly,she also complains of sob , sever fatigue , dyspnea with minimal exertion ,she sleep in chair , she could not lay flat. She reports couple times of chest pain sharp med sternal radiating to her left shoulder and left arm.the pain happened after eating but she denies any pain on exertion. She reports tingling sensation in both hands since last month. Denies any headache, sore throat,recent cold or sick contact. she reports coughing with clear phlegm and post nasal drip. She reports constipation (BM q3-4 days) but she denies abdominal N/V or GERD symptoms. She denies any urinary symptoms, she reports chronic swelling in her LE for the last 2 years. Pt has a h/o DVT after she broke her right thigh and stayed in bed for 3 months she was on warfarin for 6 months followed by maxime. IN ED pt was found to have HGb 5.3 . pt denies any hemetemesis or blood in stool, black stool. she denies using any NSAIDS. last CBC 9 months ago was normal per her PCP. last seen by him on April for SOB. While in ED received 2 u of PRBC - History Source History Provided By: Patient, Medical Record, Caregiver - Alcohol/Substance Use Hx Alcohol Use: No - Smoking History Smoking history: Former smoker Have you smoked in the past 12 months: No If you are a former smoker, when did you quit?: 1969 Home Medications - Allergies Allergies/Adverse Reactions: Allergies Allergy/AdvReac Type Severity Reaction Status Date / Time No Known Allergies Allergy Verified 05/30/17 12:09 - Home Medications Home Medications: Ambulatory Orders Amiodarone HCl 200 mg PO DAILY 05/30/17 Furosemide [Lasix] 20 mg PO TUTH 05/30/17 Metformin HCl 500 mg PO BID 05/30/17 Rivaroxaban [Xarelto -] 20 mg PO DAILY 05/30/17 Spironolactone 25 mg PO DAILY 05/30/17 Family Disease History - Family Disease History Family History: Unremarkable Review of Systems Findings/Remarks: as per HPI, H&P Physical Exam-GI Vital Signs: Vital Signs Temperature 97.9 F 05/31/17 02:00 Pulse Rate 55 L 05/31/17 08:10 Respiratory Rate 18 05/31/17 06:10 Blood Pressure 126/59 05/31/17 06:10 O2 Sat by Pulse Oximetry (%) 98 05/31/17 08:10 Constitutional: Yes: Calm, Pallor Eyes: Yes: Conjunctiva Clear HENT: Yes: Atraumatic Neck: Yes: Supple Respiratory: Yes: Regular Gastrointestinal Inspection: No: Ascites, Distention ...Palpate: Yes: Soft. No: Firm/Rigid, Guarding, Tenderness, Tenderness, Epigastium, Tenderness, Rebound Neurological: Yes: Alert, Oriented Labs: CBC, BMP 05/31/17 09:40 05/31/17 09:40 INR, PTT INR 1.16 (0.82-1.09) H 05/31/17 09:40 Laboratory Tests 05/30/17 05/30/17 05/30/17 12:00 13:10 13:10 WBC 6.7 RBC 2.54 L Hgb 5.3 L* Hct 18.0 L MCV 70.9 L MCH 20.8 L MCHC 29.3 L RDW 20.7 H Plt Count 375 MPV 8.1 Neutrophils % 84.1 H Lymphocytes % 6.7 L Monocytes % 7.9 Eosinophils % 0.5 Basophils % 0.8 Retic Count Haptoglobin PT with INR INR PTT (Actin FS) VBG pH 7.37 POC VBG pCO2 33.4 L POC VBG pO2 60.7 H Mixed VBG HCO3 18.9 L Sodium 142 Potassium 4.7 Chloride 110 H Carbon Dioxide 19 L Anion Gap 13 BUN 32 H Creatinine 1.6 H Creat Clearance w eGFR 31.51 POC Glucometer Random Glucose 109 H Calcium 8.4 L Phosphorus Magnesium Transferrin Ferritin Total Bilirubin 0.6 AST 9 L ALT 10 L Alkaline Phosphatase 88 LD Total Creatine Kinase 28 Troponin I 0.02 B-Natriuretic Peptide 941.01 H Total Protein 6.2 L Albumin 3.4 TSH Urine Color Urine Appearance Urine pH Ur Specific [place] Urine Protein Urine Glucose (UA) Urine Ketones Urine Blood Urine Nitrite Urine Bilirubin Urine Urobilinogen Ur Leukocyte Esterase Urine WBC (Auto) Urine RBC (Auto) Ur Epithelial Cells Urine Mucus Stool Occult Blood Blood Type Antibody Screen Crossmatch 05/30/17 05/30/17 05/30/17 13:21 13:30 13:37 WBC RBC Hgb Hct MCV MCH MCHC RDW Plt Count MPV Neutrophils % Lymphocytes % Monocytes % Eosinophils % Basophils % Retic Count Haptoglobin PT with INR 16.80 H INR 1.49 H PTT (Actin FS) 27.2 VBG pH POC VBG pCO2 POC VBG pO2 Mixed VBG HCO3 Sodium Potassium Chloride Carbon Dioxide Anion Gap BUN Creatinine Creat Clearance w eGFR POC Glucometer Random Glucose Calcium Phosphorus Magnesium Transferrin Ferritin Total Bilirubin AST ALT Alkaline Phosphatase LD Total Creatine Kinase Troponin I B-Natriuretic Peptide Total Protein Albumin TSH Urine Color Ltyellow Urine Appearance Clear Urine pH 5.0 Ur Specific [place] 1.016 Urine Protein Negative Urine Glucose (UA) Negative Urine Ketones Negative Urine Blood Negative Urine Nitrite Negative Urine Bilirubin Negative Urine Urobilinogen Negative Ur Leukocyte Esterase Trace Urine WBC (Auto) 1 Urine RBC (Auto) <1 Ur Epithelial Cells Rare Urine Mucus Rare Stool Occult Blood Blood Type O POSITIVE Antibody Screen Negative Crossmatch See Detail 05/30/17 05/30/17 05/30/17 13:55 13:55 13:55 WBC RBC Hgb Hct MCV MCH MCHC RDW Plt Count MPV Neutrophils % Lymphocytes % Monocytes % Eosinophils % Basophils % Retic Count 2.74 H Haptoglobin 255 H PT with INR INR PTT (Actin FS) VBG pH POC VBG pCO2 POC VBG pO2 Mixed VBG HCO3 Sodium Potassium Chloride Carbon Dioxide Anion Gap BUN Creatinine Creat Clearance w eGFR POC Glucometer Random Glucose Calcium Phosphorus Magnesium Transferrin 292 Ferritin 8.703 Total Bilirubin AST ALT Alkaline Phosphatase LD Total 201 Creatine Kinase Troponin I B-Natriuretic Peptide Total Protein Albumin TSH Urine Color Urine Appearance Urine pH Ur Specific [place] Urine Protein Urine Glucose (UA) Urine Ketones Urine Blood Urine Nitrite Urine Bilirubin Urine Urobilinogen Ur Leukocyte Esterase Urine WBC (Auto) Urine RBC (Auto) Ur Epithelial Cells Urine Mucus Stool Occult Blood Blood Type Antibody Screen Crossmatch 05/30/17 05/30/17 05/30/17 13:55 16:36 17:00 WBC 6.3 RBC 2.55 L Hgb 5.2 L* Hct 18.0 L MCV 70.7 L MCH 20.5 L MCHC 29.0 L RDW 20.9 H Plt Count 368 MPV 7.8 Neutrophils % Lymphocytes % Monocytes % Eosinophils % Basophils % Retic Count Haptoglobin PT with INR INR PTT (Actin FS) VBG pH POC VBG pCO2 POC VBG pO2 Mixed VBG HCO3 Sodium Potassium Chloride Carbon Dioxide Anion Gap BUN Creatinine Creat Clearance w eGFR POC Glucometer 139.11404 Random Glucose Calcium Phosphorus Magnesium Transferrin Ferritin Total Bilirubin AST ALT Alkaline Phosphatase LD Total Creatine Kinase Troponin I B-Natriuretic Peptide Total Protein Albumin TSH Urine Color Urine Appearance Urine pH Ur Specific [place] Urine Protein Urine Glucose (UA) Urine Ketones Urine Blood Urine Nitrite Urine Bilirubin Urine Urobilinogen Ur Leukocyte Esterase Urine WBC (Auto) Urine RBC (Auto) Ur Epithelial Cells Urine Mucus Stool Occult Blood Negative Blood Type Antibody Screen Crossmatch 05/30/17 05/31/17 05/31/17 18:30 00:40 00:40 WBC 5.2 RBC 2.81 L Hgb 6.6 L* D Hct 20.7 L MCV 73.9 L MCH 23.4 L MCHC 31.7 L RDW 22.5 H Plt Count 313 MPV 8.3 Neutrophils % Lymphocytes % Monocytes % Eosinophils % Basophils % Retic Count Haptoglobin PT with INR INR PTT (Actin FS) VBG pH POC VBG pCO2 POC VBG pO2 Mixed VBG HCO3 Sodium Potassium Chloride Carbon Dioxide Anion Gap BUN Creatinine Creat Clearance w eGFR POC Glucometer Random Glucose Calcium Phosphorus Magnesium Transferrin Ferritin Total Bilirubin AST ALT Alkaline Phosphatase LD Total Creatine Kinase Troponin I 0.03 0.02 B-Natriuretic Peptide Total Protein Albumin TSH Urine Color Urine Appearance Urine pH Ur Specific [place] Urine Protein Urine Glucose (UA) Urine Ketones Urine Blood Urine Nitrite Urine Bilirubin Urine Urobilinogen Ur Leukocyte Esterase Urine WBC (Auto) Urine RBC (Auto) Ur Epithelial Cells Urine Mucus Stool Occult Blood Blood Type Antibody Screen Crossmatch 05/31/17 05/31/17 05/31/17 01:15 06:14 09:40 WBC 5.1 7.2 D RBC 2.80 L 3.17 L Hgb 6.4 L* 7.7 L D Hct 20.8 L 23.6 L MCV 74.0 L 74.4 L MCH 22.9 L 24.2 L MCHC 31.0 L 32.5 RDW 21.8 H 21.4 H Plt Count 326 314 MPV 8.4 7.9 Neutrophils % 79.3 Lymphocytes % 10.2 D Monocytes % 9.9 Eosinophils % 0.1 Basophils % 0.5 Retic Count Haptoglobin PT with INR INR PTT (Actin FS) VBG pH POC VBG pCO2 POC VBG pO2 Mixed VBG HCO3 Sodium Potassium Chloride Carbon Dioxide Anion Gap BUN Creatinine Creat Clearance w eGFR POC Glucometer 132 Random Glucose Calcium Phosphorus Magnesium Transferrin Ferritin Total Bilirubin AST ALT Alkaline Phosphatase LD Total Creatine Kinase Troponin I B-Natriuretic Peptide Total Protein Albumin TSH Urine Color Urine Appearance Urine pH Ur Specific [place] Urine Protein Urine Glucose (UA) Urine Ketones Urine Blood Urine Nitrite Urine Bilirubin Urine Urobilinogen Ur Leukocyte Esterase Urine WBC (Auto) Urine RBC (Auto) Ur Epithelial Cells Urine Mucus Stool Occult Blood Blood Type Antibody Screen Crossmatch 05/31/17 05/31/17 05/31/17 09:40 09:40 09:45 WBC RBC Hgb Hct MCV MCH MCHC RDW Plt Count MPV Neutrophils % Lymphocytes % Monocytes % Eosinophils % Basophils % Retic Count Haptoglobin PT with INR 13.10 H INR 1.16 H PTT (Actin FS) 25.7 L VBG pH POC VBG pCO2 POC VBG pO2 Mixed VBG HCO3 Sodium 142 Potassium 4.1 Chloride 110 H Carbon Dioxide 22 Anion Gap 10 BUN 32 H Creatinine 1.6 H Creat Clearance w eGFR 31.51 POC Glucometer Random Glucose 89 Calcium 7.9 L Phosphorus 4.0 Magnesium 2.0 Transferrin Ferritin Total Bilirubin 1.5 H D AST 5 L ALT 8 L Alkaline Phosphatase 75 LD Total Creatine Kinase Troponin I B-Natriuretic Peptide Total Protein 5.8 L Albumin 3.4 TSH 0.14 L Urine Color Urine Appearance Urine pH Ur Specific [place] Urine Protein Urine Glucose (UA) Urine Ketones Urine Blood Urine Nitrite Urine Bilirubin Urine Urobilinogen Ur Leukocyte Esterase Urine WBC (Auto) Urine RBC (Auto) Ur Epithelial Cells Urine Mucus Stool Occult Blood Blood Type Antibody Screen Crossmatch Assessment/Plan Symptomatic anemia since April of this year, progressive Anticoagulated No external signs of bleeding reported by the patient, or noted while hospitalized. Hemodynamically stable. EGD revealed no abnormalities other than small hiatal hernia. Resume low salt diet today close monitoring for the sings of bleeding Iron panel, B12, Folate, LDH, haptoglobin Keep Hgb above 7-8 g/dl, or as per cardiology Colonoscopy
[2017-05-31] MEDS: SPIRONOLACTONE 25 MG TABLET (FP) PO SCH ×2 (12:13→14:28)
[2017-05-31] MEDS: AMIODARONE HCL 200 MG TABLET (FP) PO SCH ×2 (12:14→14:28)
[2017-05-31] MEDS: PANTOPRAZOLE SODIUM 40 MG VIAL IVPUSH SCH ×2 (12:14→21:50)
--- NOTE | 2017-05-31 12:32 | PN ---
Physical Exam: SUBJECTIVE: Patient seen and examined at bedside. breathing is better today. denies any fever, chills, N/V/D.C. denies any chest pain or SOB. OBJECTIVE: Vital Signs Period Temp Pulse Resp BP Sys/[place] Pulse Ox Last 24 Hr 97.9 F-98.3 F 55-81 16-24 126-160/46-66 95-100 GENERAL: The patient is awake, alert, and fully oriented, in no acute distress. HEAD: Normal with no signs of trauma. EYES: sclera anicteric, conjunctiva clear. ENT: dry mucous membranes. NECK: supple. LUNGS: Breath sounds equal, clear to auscultation bilaterally, no wheezes, no crackles, no accessory muscle use. HEART: Regular rate and rhythm, S1, S2 3/6 systolic murmur, no rub or gallop. ABDOMEN: Obese Soft, nontender, nondistended, normoactive bowel sounds, no guarding, no rebound. EXTREMITIES: 2+ pulses, warm, well-perfused,+2 edema with peripheral venous changes and lymph edema. NEUROLOGICAL: NO focal deficit. Normal speech, gait not observed. PSYCH: Normal mood, normal affect. SKIN: Warm, dry,erythematous rash beneath the breast Laboratory Results - last 24 hr 05/30/17 05/30/17 05/30/17 12:00 13:10 13:10 WBC 6.7 RBC 2.54 L Hgb 5.3 L* Hct 18.0 L MCV 70.9 L MCH 20.8 L MCHC 29.3 L RDW 20.7 H Plt Count 375 MPV 8.1 Neutrophils % 84.1 H Lymphocytes % 6.7 L Monocytes % 7.9 Eosinophils % 0.5 Basophils % 0.8 Retic Count Haptoglobin PT with INR INR PTT (Actin FS) VBG pH 7.37 POC VBG pCO2 33.4 L POC VBG pO2 60.7 H Mixed VBG HCO3 18.9 L Sodium 142 Potassium 4.7 Chloride 110 H Carbon Dioxide 19 L Anion Gap 13 BUN 32 H Creatinine 1.6 H Creat Clearance w eGFR 31.51 POC Glucometer Random Glucose 109 H Calcium 8.4 L Phosphorus Magnesium Transferrin Ferritin Total Bilirubin 0.6 AST 9 L ALT 10 L Alkaline Phosphatase 88 LD Total Creatine Kinase 28 Troponin I 0.02 B-Natriuretic Peptide 941.01 H Total Protein 6.2 L Albumin 3.4 TSH Urine Color Urine Appearance Urine pH Ur Specific [place] Urine Protein Urine Glucose (UA) Urine Ketones Urine Blood Urine Nitrite Urine Bilirubin Urine Urobilinogen Ur Leukocyte Esterase Urine WBC (Auto) Urine RBC (Auto) Ur Epithelial Cells Urine Mucus Stool Occult Blood Blood Type Antibody Screen Crossmatch 05/30/17 05/30/17 05/30/17 13:21 13:30 13:37 WBC RBC Hgb Hct MCV MCH MCHC RDW Plt Count MPV Neutrophils % Lymphocytes % Monocytes % Eosinophils % Basophils % Retic Count Haptoglobin PT with INR 16.80 H INR 1.49 H PTT (Actin FS) 27.2 VBG pH POC VBG pCO2 POC VBG pO2 Mixed VBG HCO3 Sodium Potassium Chloride Carbon Dioxide Anion Gap BUN Creatinine Creat Clearance w eGFR POC Glucometer Random Glucose Calcium Phosphorus Magnesium Transferrin Ferritin Total Bilirubin AST ALT Alkaline Phosphatase LD Total Creatine Kinase Troponin I B-Natriuretic Peptide Total Protein Albumin TSH Urine Color Ltyellow Urine Appearance Clear Urine pH 5.0 Ur Specific [place] 1.016 Urine Protein Negative Urine Glucose (UA) Negative Urine Ketones Negative Urine Blood Negative Urine Nitrite Negative Urine Bilirubin Negative Urine Urobilinogen Negative Ur Leukocyte Esterase Trace Urine WBC (Auto) 1 Urine RBC (Auto) <1 Ur Epithelial Cells Rare Urine Mucus Rare Stool Occult Blood Blood Type O POSITIVE Antibody Screen Negative Crossmatch See Detail 05/30/17 05/30/17 05/30/17 13:55 13:55 13:55 WBC RBC Hgb Hct MCV MCH MCHC RDW Plt Count MPV Neutrophils % Lymphocytes % Monocytes % Eosinophils % Basophils % Retic Count 2.74 H Haptoglobin 255 H PT with INR INR PTT (Actin FS) VBG pH POC VBG pCO2 POC VBG pO2 Mixed VBG HCO3 Sodium Potassium Chloride Carbon Dioxide Anion Gap BUN Creatinine Creat Clearance w eGFR POC Glucometer Random Glucose Calcium Phosphorus Magnesium Transferrin 292 Ferritin 8.703 Total Bilirubin AST ALT Alkaline Phosphatase LD Total 201 Creatine Kinase Troponin I B-Natriuretic Peptide Total Protein Albumin TSH Urine Color Urine Appearance Urine pH Ur Specific [place] Urine Protein Urine Glucose (UA) Urine Ketones Urine Blood Urine Nitrite Urine Bilirubin Urine Urobilinogen Ur Leukocyte Esterase Urine WBC (Auto) Urine RBC (Auto) Ur Epithelial Cells Urine Mucus Stool Occult Blood Blood Type Antibody Screen Crossmatch 05/30/17 05/30/17 05/30/17 13:55 16:36 17:00 WBC 6.3 RBC 2.55 L Hgb 5.2 L* Hct 18.0 L MCV 70.7 L MCH 20.5 L MCHC 29.0 L RDW 20.9 H Plt Count 368 MPV 7.8 Neutrophils % Lymphocytes % Monocytes % Eosinophils % Basophils % Retic Count Haptoglobin PT with INR INR PTT (Actin FS) VBG pH POC VBG pCO2 POC VBG pO2 Mixed VBG HCO3 Sodium Potassium Chloride Carbon Dioxide Anion Gap BUN Creatinine Creat Clearance w eGFR POC Glucometer 139.24508 Random Glucose Calcium Phosphorus Magnesium Transferrin Ferritin Total Bilirubin AST ALT Alkaline Phosphatase LD Total Creatine Kinase Troponin I B-Natriuretic Peptide Total Protein Albumin TSH Urine Color Urine Appearance Urine pH Ur Specific [place] Urine Protein Urine Glucose (UA) Urine Ketones Urine Blood Urine Nitrite Urine Bilirubin Urine Urobilinogen Ur Leukocyte Esterase Urine WBC (Auto) Urine RBC (Auto) Ur Epithelial Cells Urine Mucus Stool Occult Blood Negative Blood Type Antibody Screen Crossmatch 05/30/17 05/31/17 05/31/17 18:30 00:40 00:40 WBC 5.2 RBC 2.81 L Hgb 6.6 L* D Hct 20.7 L MCV 73.9 L MCH 23.4 L MCHC 31.7 L RDW 22.5 H Plt Count 313 MPV 8.3 Neutrophils % Lymphocytes % Monocytes % Eosinophils % Basophils % Retic Count Haptoglobin PT with INR INR PTT (Actin FS) VBG pH POC VBG pCO2 POC VBG pO2 Mixed VBG HCO3 Sodium Potassium Chloride Carbon Dioxide Anion Gap BUN Creatinine Creat Clearance w eGFR POC Glucometer Random Glucose Calcium Phosphorus Magnesium Transferrin Ferritin Total Bilirubin AST ALT Alkaline Phosphatase LD Total Creatine Kinase Troponin I 0.03 0.02 B-Natriuretic Peptide Total Protein Albumin TSH Urine Color Urine Appearance Urine pH Ur Specific [place] Urine Protein Urine Glucose (UA) Urine Ketones Urine Blood Urine Nitrite Urine Bilirubin Urine Urobilinogen Ur Leukocyte Esterase Urine WBC (Auto) Urine RBC (Auto) Ur Epithelial Cells Urine Mucus Stool Occult Blood Blood Type Antibody Screen Crossmatch 05/31/17 05/31/17 05/31/17 01:15 06:14 09:40 WBC 5.1 7.2 D RBC 2.80 L 3.17 L Hgb 6.4 L* 7.7 L D Hct 20.8 L 23.6 L MCV 74.0 L 74.4 L MCH 22.9 L 24.2 L MCHC 31.0 L 32.5 RDW 21.8 H 21.4 H Plt Count 326 314 MPV 8.4 7.9 Neutrophils % 79.3 Lymphocytes % 10.2 D Monocytes % 9.9 Eosinophils % 0.1 Basophils % 0.5 Retic Count Haptoglobin PT with INR INR PTT (Actin FS) VBG pH POC VBG pCO2 POC VBG pO2 Mixed VBG HCO3 Sodium Potassium Chloride Carbon Dioxide Anion Gap BUN Creatinine Creat Clearance w eGFR POC Glucometer 132 Random Glucose Calcium Phosphorus Magnesium Transferrin Ferritin Total Bilirubin AST ALT Alkaline Phosphatase LD Total Creatine Kinase Troponin I B-Natriuretic Peptide Total Protein Albumin TSH Urine Color Urine Appearance Urine pH Ur Specific [place] Urine Protein Urine Glucose (UA) Urine Ketones Urine Blood Urine Nitrite Urine Bilirubin Urine Urobilinogen Ur Leukocyte Esterase Urine WBC (Auto) Urine RBC (Auto) Ur Epithelial Cells Urine Mucus Stool Occult Blood Blood Type Antibody Screen Crossmatch 05/31/17 05/31/17 05/31/17 09:40 09:40 09:45 WBC RBC Hgb Hct MCV MCH MCHC RDW Plt Count MPV Neutrophils % Lymphocytes % Monocytes % Eosinophils % Basophils % Retic Count Haptoglobin PT with INR 13.10 H INR 1.16 H PTT (Actin FS) 25.7 L VBG pH POC VBG pCO2 POC VBG pO2 Mixed VBG HCO3 Sodium 142 Potassium 4.1 Chloride 110 H Carbon Dioxide 22 Anion Gap 10 BUN 32 H Creatinine 1.6 H Creat Clearance w eGFR 31.51 POC Glucometer Random Glucose 89 Calcium 7.9 L Phosphorus 4.0 Magnesium 2.0 Transferrin Ferritin Total Bilirubin 1.5 H D AST 5 L ALT 8 L Alkaline Phosphatase 75 LD Total Creatine Kinase Troponin I B-Natriuretic Peptide Total Protein 5.8 L Albumin 3.4 TSH 0.14 L Urine Color Urine Appearance Urine pH Ur Specific [place] Urine Protein Urine Glucose (UA) Urine Ketones Urine Blood Urine Nitrite Urine Bilirubin Urine Urobilinogen Ur Leukocyte Esterase Urine WBC (Auto) Urine RBC (Auto) Ur Epithelial Cells Urine Mucus Stool Occult Blood Blood Type Antibody Screen Crossmatch Active Medications Generic Name Dose Route Start Last Admin Trade Name Freq PRN Reason Stop Dose Admin Albuterol/Ipratropium 1 amp 05/30/17 18:46 Duoneb - NEB Q6H PRN SHORTNESS OF BREATH Amiodarone HCl 200 mg 05/31/17 10:00 05/31/17 12:14 Cordarone - PO Not Given DAILY [facility] Insulin Aspart 1 vial 05/30/17 16:30 05/31/17 12:13 Novolog Vial Sliding Scale - SQ Not Given TIDAC [facility] Protocol Nystatin 1 applic 05/31/17 12:30 Mycostatin Cream - TP BID [facility] Pantoprazole Sodium 40 mg 05/30/17 16:30 05/31/17 12:14 Protonix Iv IVPUSH Not Given BID [facility] Spironolactone 25 mg 05/30/17 16:30 05/31/17 12:13 Aldactone - PO Not Given DAILY [facility] CBC, BMP 05/31/17 09:40 05/31/17 09:40 05/30/2017 CXR cardiomegaly with mild congestion EKG: QTC 524, NSR with new RBBB, ASSESSMENT/PLAN: 72 year old female with pmhx of copd(home o2 ), Afib (on xarelto), DMII, HTN, HLD, peripheral venous stasis, h/o DVT who presented to the ED with worsening sob, dyspnea and generalized weakness was found to have hgb of 5.3 and was admitted to [facility] for further evaluation. # Sever symptomatic microcytic anemia * pt has light headedness , sever fatigue, generalized weakness for last 2 months * presented with hgb 5.3 * monitor H/H q 6hr * Iron studies , b12, folic acid , TSH * 2 large IV pore * Type and screen, coagulation study * occult negative in ED * transfuse 2 units of PRBCs * start lasix 20 mg po before the transfusion and asses for over loaded after the first units, give another 2o mg lasix if seems over loaded. * GI consult for possible EGD/ Colonoscopy # Acute on chronic respiratory failure , resolving , * likely due to anemia vs COPD exacerbation vs CHF exacerbation unlikely * O2 as needed to keep O2 >89% * BIPAP PRN * Duo-neb PRN * CXray with cardiomegaly and mild congestion * continue spirnolactone , * F/U ECHO # JOHNY on chronic CKD likely pre renal azotemia due to low hgb and low oral intake * transfuse 2 units * Monitor bun/cr # AFIB * rate controlled * Cardiology consult Dr.Gittig martínezi ue current management * Cont Amiodarone 200 mg po daily * hold xarelto due to possible bleeding * registered nurse cardiac telemetry * Echo cardiogram * TropI negative x3 # DMII * last HGBA1c 5.2 per pt * Hold metformin * ISS * BGM TID AC * Diabetic diet # Morbid obesity * consulted about losing weight and modified life style # HTN * will give lasix 20 mg once before the transfusion * continue Spirnolactone 25 mg po daily # HLD * not on any meds # peripheral venous changes * chronic for the last 2 years * hold xarelto * # H/O left femoral fx 2 years ago, * no surgery was performed , was bed bounded for 3 months after that # H/O DVT , * hold on xarelto in term of possible bleeding * US lower ext # FEN * no standing fluids * monitor BMP * npo for now # Proph * DVTS: scds apply both legs * GI: protonix 40 mg IV BID # Dispo * admit to tele * Monitor CBC Q 6 hr Visit type - Emergency Visit Emergency Visit: Yes ED Registration Date: 05/30/17 Care time: The patient presented to the Emergency Department on the above date and was hospitalized for further evaluation of their emergent condition. - New Patient This patient is new to me today: No - Critical Care Critical Care patient: No
[2017-05-31] MEDS ORDERED: PROPOFOL 20 ML ONE (12:45)
[2017-05-31] MEDS ORDERED: LIDOCAINE HCL/PF 2% SDV 5ML VIAL ONE (12:45)
[2017-05-31] MEDS ORDERED: MIDAZOLAM HCL 2 MG/2 ML SINGLE DOSE VIAL ONE (12:45)
--- NOTE | 2017-05-31 13:19 | PN ---
Teaching Attending Note Name of Resident: Taurus Anderson ATTENDING PHYSICIAN STATEMENT I saw and evaluated the patient. I reviewed the resident's note and discussed the case with the resident. I agree with the resident's findings and plan as documented. SUBJECTIVE: Patient is comfortable with no acute distress, no shortness of breath, feels better. Patient is going for EGD OBJECTIVE: Vital Signs Temperature 97.9 F 05/31/17 02:00 Pulse Rate 55 L 05/31/17 08:10 Respiratory Rate 18 05/31/17 09:00 Blood Pressure 126/59 05/31/17 06:10 O2 Sat by Pulse Oximetry (%) 98 05/31/17 09:00 CBCD WBC 7.2 K/mm3 (4.0-10.0) D 05/31/17 09:40 RBC 3.17 M/mm3 (3.60-5.2) L 05/31/17 09:40 Hgb 7.7 GM/dL (10.7-15.3) L D 05/31/17 09:40 Hct 23.6 % (32.4-45.2) L 05/31/17 09:40 MCV 74.4 fl (80-96) L 05/31/17 09:40 MCHC 32.5 g/dl (32.0-36.0) 05/31/17 09:40 RDW 21.4 % (11.6-15.6) H 05/31/17 09:40 Plt Count 314 K/MM3 (134-434) 05/31/17 09:40 MPV 7.9 fl (7.5-11.1) 05/31/17 09:40 CMP Sodium 142 mmol/L (136-145) 05/31/17 09:40 Potassium 4.1 mmol/L (3.5-5.1) 05/31/17 09:40 Chloride 110 mmol/L (98-107) H 05/31/17 09:40 Carbon Dioxide 22 mmol/L (21-32) 05/31/17 09:40 Anion Gap 10 (8-16) 05/31/17 09:40 BUN 32 mg/dL (7-18) H 05/31/17 09:40 Creatinine 1.6 mg/dL (0.55-1.02) H 05/31/17 09:40 Creat Clearance w eGFR 31.51 (>60) 05/31/17 09:40 Random Glucose 89 mg/dL (74-106) 05/31/17 09:40 Calcium 7.9 mg/dL (8.5-10.1) L 05/31/17 09:40 Total Bilirubin 1.5 mg/dL (0.2-1.0) H D 05/31/17 09:40 AST 5 U/L (15-37) L 05/31/17 09:40 ALT 8 U/L (12-78) L 05/31/17 09:40 Alkaline Phosphatase 75 U/L (45-117) 05/31/17 09:40 Total Protein 5.8 g/dl (6.4-8.2) L 05/31/17 09:40 Albumin 3.4 g/dl (3.4-5.0) 05/31/17 09:40 CARDIAC ENZYMES Creatine Kinase 28 IU/L (26-192) 05/30/17 13:10 Troponin I 0.02 ng/ml (0.00-0.05) 05/31/17 00:40 Current Medications Generic Name Dose Route Start Last Admin Trade Name Freq PRN Reason Stop Dose Admin Albuterol/Ipratropium 1 amp 05/30/17 18:46 Duoneb - NEB Q6H PRN SHORTNESS OF BREATH Amiodarone HCl 200 mg 05/31/17 10:00 05/31/17 12:14 Cordarone - PO Not Given DAILY [facility] Insulin Aspart 1 vial 05/30/17 16:30 05/31/17 12:13 Novolog Vial Sliding Scale - SQ Not Given TIDAC [facility] Protocol Nystatin 1 applic 05/31/17 12:30 Mycostatin Cream - TP BID [facility] Pantoprazole Sodium 40 mg 05/30/17 16:30 05/31/17 12:14 Protonix Iv IVPUSH Not Given BID [facility] Spironolactone 25 mg 05/30/17 16:30 05/31/17 12:13 Aldactone - PO Not Given DAILY [facility] Home Medications Medication Instructions Recorded Amiodarone HCl 200 mg PO DAILY 05/30/17 Furosemide [Lasix] 20 mg PO TUTH 05/30/17 Metformin HCl 500 mg PO BID 05/30/17 Rivaroxaban [Xarelto -] 20 mg PO DAILY 05/30/17 Spironolactone 25 mg PO DAILY 05/30/17 PE: comfortable, off Bipap, NAD, on 2 L NC Chest: Decreased BS BL otherwise no crackles Heart: S1S2 positive, Brittni 06/05 aBDOMEN: SOFT,Nt, Obese extremities: Chronic changes, with yellow crusting lymphedema bl ECHO: Moderate , MILD AR, ejf 59% cxr: MILD CONGESTION ASSESSMENT AND PLAN: Patient is a 72 yo Female with h/o a-fib on xarelto, chf and COPD admitted to telemetry for having SOB and was found to have hemoglobin of 5.3. # Acute severe anemia possible due to blood loss , S/P 2 UNIT OF BLOOD TRANSFUSION hemoglobin 5.3-->7.7 now , Gi AND CARDIO ARE ON THE CASE. for Colonoscopy on Sunday and EGD. today. was found to have hemoglobin of 5.3 as per her PMD , she was within normal range 9 months ago, Protonix 40mg IV BID, Hold Xarelto dose for now. GI consult Dr. Koo appreciated, going for EGD today stool ocb # Acute severe microcytic anemia , will monitor, s/p 2 units of PRBC, hemoglobin is 7.7 today # Hx of COPD off Bipap now , patient is no longer on Bipap # Afib rate controlled OFF Xarelto for now since was found to have low hemoglobin , will continue to hold now, continue Amiodarone , will check TSH level is low, will check Free T4 and Free T3, cardiology consult appreciated . CEq6 x 3 neg. # Hx of DVT on Xarelto will hold off for now, duplex of LE # T2DM on Metformin hold it for now, sliding scale with coverage. # ARF due to acute blood loss, hold Metformin, transfuse , repeat H/H, monitor # Morbid Obesity NPO for now DVT px: Xarelto, will hold it for now.
--- NOTE | 2017-05-31 13:45 | PROC ---
Endoscopy Procedure Endoscopy procedure completed. Please see scanned procedure report. small hiatal hernia, otherwise normal EGD
--- NOTE | 2017-05-31 15:48 | PN ---
Progress Note (short form) - Note Progress Note: Colonoscopy scheduled in AM. Pt's aware
[2017-05-31] MEDS ORDERED: BISACODYL 5 MG TABLET.DR (FP) PO ONE (16:15)
[2017-05-31] MEDS: NYSTATIN 100,000 UNIT/GM TOPICAL CREAM 15 GM TUBE TP SCH ×2 (16:21→21:50)
[2017-05-31] MEDS: MINERAL OIL/PET HY-PHL TOPICAL OINTMENT 454 GM JAR TP SCH ×2 (16:21→21:51)
[2017-05-31 16:39] LABS: HEMATOCRIT 23.9 % (32.4-45.2); HEMOGLOBIN 7.7 GM/dL (10.7-15.3); MCH 24.2 pg (25.7-33.7); MCHC 32.2 g/dl (32.0-36.0); MEAN CELL VOLUME 75.1 fl (80-96); MEAN PLT VOLUME 8.2 fl (7.5-11.1); PLATELET COUNT 328 K/MM3 (134-434); RBC 3.18 M/mm3 (3.60-5.2); RDW 21.4 % (11.6-15.6); WHITE BLOOD COUNT 10.1 K/mm3 (4.0-10.0)
--- NOTE | 2017-05-31 16:56 | CONSULT ---
Consult Consult Specialty:: Hematology - History of Present Illness History of Present Illness: 72 yo Female with h/o a-fib on xarelto, chf and COPD admitted to telemetry for having SOB and was found to have hemoglobin of 5.3. s/p normal EGD Patient seen and examined. Hematology consulted for severe anemia. - History Source History Provided By: Patient, Friend, Medical Record Limitations to Obtaining History: No Limitations - Alcohol/Substance Use Hx Alcohol Use: No - Smoking History Smoking history: Former smoker Have you smoked in the past 12 months: No If you are a former smoker, when did you quit?: 1970 Home Medications - Allergies Allergies/Adverse Reactions: Allergies Allergy/AdvReac Type Severity Reaction Status Date / Time No Known Allergies Allergy Verified 05/30/17 12:09 - Home Medications Home Medications: Ambulatory Orders Amiodarone HCl 200 mg PO DAILY 05/30/17 Furosemide [Lasix] 20 mg PO TUTH 05/30/17 Metformin HCl 500 mg PO BID 05/30/17 Rivaroxaban [Xarelto -] 20 mg PO DAILY 05/30/17 Spironolactone 25 mg PO DAILY 05/30/17 Family Disease History - Family Disease History Family History: Denies Review of Systems - Review of Systems Constitutional: denies: Chills, Diaphoresis, Fever, Lethargy, Loss of Appetite Neck: denies: Decreased ROM, Lumps, Pain on Movement Cardiovascular: denies: Chest Pain, Edema, Palpitations, Shortness of Breath Respiratory: reports: No Symptoms Gastrointestinal: denies: Abdominal Pain, Bloating, Constipation, Diarrhea, Indigestion, Melena, Nausea, Rectal Bleeding, Vomiting Genitourinary: reports: No Symptoms Breasts: reports: No Symptoms Reported Musculoskeletal: reports: No Symptoms Integumentary: reports: No Symptoms Hematology/Lymphatic: reports: No Symptoms Psychiatric: reports: No Symptoms Physical Exam Vital Signs: Vital Signs Temperature 98.7 F 05/31/17 13:19 Pulse Rate 66 05/31/17 13:52 Respiratory Rate 22 05/31/17 13:52 Blood Pressure 165/75 05/31/17 13:52 O2 Sat by Pulse Oximetry (%) 98 05/31/17 13:52 Constitutional: Yes: No Distress, Calm, Anxious Eyes: Yes: Conjunctiva Clear HENT: Yes: Atraumatic, Normocephalic Neck: Yes: Supple, Trachea Midline Cardiovascular: Yes: Regular Rate and Rhythm Respiratory: Yes: Regular, CTA Bilaterally Gastrointestinal: Yes: Normal Bowel Sounds, Soft, Abdomen, Obese Musculoskeletal: Yes: WNL Extremities: Yes: Erythema, Other (blisters+) Edema: Yes Edema: LLE: 3+, RLE: 3+ Integumentary: Yes: WNL Wound/Incision: Yes: Clean/Dry, Well Approximated Neurological: Yes: Alert, Oriented Psychiatric: Yes: Alert, Oriented Labs: CBC, BMP 05/31/17 15:40 05/31/17 09:40 Imaging - Results Chest X-ray: Report Reviewed Assessment/Plan Severe Fe-Def anemia. (ferritin of 8) Likely chronic, MCV of 70, under no known hemoglobinopathy. for GI w/u EGD negative for colonoscopy, will follow on results await most of the screening anemia labs ordered. benefit from parenteral iron Other: COPD Afib , ?h/o DVT on AC ( now held due to severe anemia ) chronic LE edema/venous insufficiency
[2017-05-31] MEDS ORDERED: PEG 3350/NA SULF BICARB CL/KCL 4000 ML SOLN.RECON PO ONE (17:00)
[2017-05-31] MEDS: ATORVASTATIN CA 20 MG TABLET (FP) PO SCH (21:51)
[2017-06-01] MEDS: INSULIN SLIDING SCALE (NOVOLOG) 1 VIAL SQ SCH ×3 (05:59→18:22)
[2017-06-01 06:08] LABS: SERUM IRON SATURATION 3 % (15-55); TOTAL IRON BINDING CAPACITY 362 ug/dL (250-450); UIBC 351 ug/dL (118-369)
[2017-06-01 07:32] LABS: BASO % 0.7 % (0-2.0); EOS % 1.2 % (0-4.5); HEMATOCRIT 23.9 % (32.4-45.2); HEMOGLOBIN 7.7 GM/dL (10.7-15.3); LYMPH % 8.7 % (8-40); MCH 24.2 pg (25.7-33.7); MCHC 32.2 g/dl (32.0-36.0); MEAN CELL VOLUME 75.2 fl (80-96); MEAN PLT VOLUME 8.4 fl (7.5-11.1); MONO % 6.8 % (3.8-10.2); NEUT % 82.6 % (42.8-82.8); PLATELET COUNT 311 K/MM3 (134-434); RBC 3.18 M/mm3 (3.60-5.2); RDW 21.9 % (11.6-15.6); WHITE BLOOD COUNT 8.6 K/mm3 (4.0-10.0)
[2017-06-01 08:26] LABS: BLOOD UREA NITROGEN 28 mg/dL (7-18); CREATININE 1.5 mg/dL (0.55-1.02); GLUCOSE,RANDOM 91 mg/dL (74-106)
[2017-06-01 08:27] LABS: ALBUMIN 3.2 g/dl (3.4-5.0); ANION GAP 10 (8-16); BILIRUBIN,TOTAL 1.1 mg/dL (0.2-1.0); CALCIUM 7.6 mg/dL (8.5-10.1); CHLORIDE 109 mmol/L (98-107); CO2 24 mmol/L (21-32); POTASSIUM 4.2 mmol/L (3.5-5.1); SGOT/AST 8 U/L (15-37); SGPT/ALT 9 U/L (12-78); SODIUM 143 mmol/L (136-145); TOT PROT 5.4 g/dl (6.4-8.2)
[2017-06-01 08:28] LABS: ALK PHOS 72 U/L (45-117)
--- NOTE | 2017-06-01 08:51 | PN ---
Physical Exam: SUBJECTIVE: Patient seen and examined at bedside. NPO since mid night for colonoscopy today. denies any fever, chills, N/V. had diarrhea due to colon prep. OBJECTIVE: Vital Signs Period Temp Pulse Resp BP Sys/[place] Pulse Ox Last 24 Hr 97.7 F-98.8 F 65-82 18-22 134-166/46-88 94-99 GENERAL: The patient is awake, alert, and fully oriented, in no acute distress. HEAD: Normal with no signs of trauma. EYES: sclera anicteric, conjunctiva clear. ENT: dry mucous membranes. NECK: supple. LUNGS: Breath sounds equal, clear to auscultation bilaterally, no wheezes, no crackles, no accessory muscle use. HEART: Regular rate and rhythm, S1, S2 3/6 systolic murmur, no rub or gallop. ABDOMEN: Obese Soft, nontender, nondistended, normoactive bowel sounds, no guarding, no rebound. EXTREMITIES: 2+ pulses, warm, well-perfused,+2 edema with peripheral venous changes and lymph edema. NEUROLOGICAL: NO focal deficit. Normal speech, gait not observed. PSYCH: Normal mood, normal affect. SKIN: Warm, dry,erythematous rash beneath the breast,B/L peripheral venous changes. Laboratory Results - last 24 hr 05/30/17 05/30/17 05/31/17 12:00 12:00 09:40 WBC 7.2 D RBC 3.17 L Hgb 7.7 L D Hct 23.6 L MCV 74.4 L MCH 24.2 L MCHC 32.5 RDW 21.4 H Plt Count 314 MPV 7.9 Neutrophils % 79.3 Lymphocytes % 10.2 D Monocytes % 9.9 Eosinophils % 0.1 Basophils % 0.5 PT with INR INR PTT (Actin FS) Sodium Potassium Chloride Carbon Dioxide Anion Gap BUN Creatinine Creat Clearance w eGFR POC Glucometer Random Glucose Hemoglobin A1c % 5.2 Calcium Phosphorus Magnesium Iron 11 L TIBC 362 Iron Saturation 3 L Total Bilirubin AST ALT Alkaline Phosphatase Total Protein Albumin TSH Free T4 05/31/17 05/31/17 05/31/17 09:40 09:40 09:45 WBC RBC Hgb Hct MCV MCH MCHC RDW Plt Count MPV Neutrophils % Lymphocytes % Monocytes % Eosinophils % Basophils % PT with INR 13.10 H INR 1.16 H PTT (Actin FS) 25.7 L Sodium 142 Potassium 4.1 Chloride 110 H Carbon Dioxide 22 Anion Gap 10 BUN 32 H Creatinine 1.6 H Creat Clearance w eGFR 31.51 POC Glucometer Random Glucose 89 Hemoglobin A1c % Calcium 7.9 L Phosphorus 4.0 Magnesium 2.0 Iron TIBC Iron Saturation Total Bilirubin 1.5 H D AST 5 L ALT 8 L Alkaline Phosphatase 75 Total Protein 5.8 L Albumin 3.4 TSH 0.14 L Free T4 05/31/17 05/31/17 06/01/17 15:40 17:02 05:29 WBC 10.1 H D RBC 3.18 L Hgb 7.7 L Hct 23.9 L MCV 75.1 L MCH 24.2 L MCHC 32.2 RDW 21.4 H Plt Count 328 MPV 8.2 Neutrophils % Lymphocytes % Monocytes % Eosinophils % Basophils % PT with INR INR PTT (Actin FS) Sodium Potassium Chloride Carbon Dioxide Anion Gap BUN Creatinine Creat Clearance w eGFR POC Glucometer 105 121 Random Glucose Hemoglobin A1c % Calcium Phosphorus Magnesium Iron TIBC Iron Saturation Total Bilirubin AST ALT Alkaline Phosphatase Total Protein Albumin TSH Free T4 06/01/17 06/01/17 06/01/17 06:40 06:48 06:48 WBC RBC Hgb Hct MCV MCH MCHC RDW Plt Count MPV Neutrophils % Lymphocytes % Monocytes % Eosinophils % Basophils % PT with INR INR PTT (Actin FS) Sodium 143 Cancelled Potassium 4.2 Cancelled Chloride 109 H Cancelled Carbon Dioxide 24 Cancelled Anion Gap 10 Cancelled BUN 28 H Cancelled Creatinine 1.5 H Cancelled Creat Clearance w eGFR 33.94 Cancelled POC Glucometer Random Glucose 91 Cancelled Hemoglobin A1c % Calcium 7.6 L Cancelled Phosphorus Magnesium Iron TIBC Iron Saturation Total Bilirubin 1.1 H D Cancelled AST 8 L Cancelled ALT 9 L Cancelled Alkaline Phosphatase 72 Cancelled Total Protein 5.4 L Cancelled Albumin 3.2 L Cancelled TSH 0.10 L Free T4 1.94 H 06/01/17 06:48 WBC 8.6 RBC 3.18 L Hgb 7.7 L Hct 23.9 L MCV 75.2 L MCH 24.2 L MCHC 32.2 RDW 21.9 H Plt Count 311 MPV 8.4 Neutrophils % 82.6 Lymphocytes % 8.7 Monocytes % 6.8 Eosinophils % 1.2 D Basophils % 0.7 PT with INR INR PTT (Actin FS) Sodium Potassium Chloride Carbon Dioxide Anion Gap BUN Creatinine Creat Clearance w eGFR POC Glucometer Random Glucose Hemoglobin A1c % Calcium Phosphorus Magnesium Iron TIBC Iron Saturation Total Bilirubin AST ALT Alkaline Phosphatase Total Protein Albumin TSH Free T4 Active Medications Generic Name Dose Route Start Last Admin Trade Name Freq PRN Reason Stop Dose Admin Albuterol/Ipratropium 1 amp 05/30/17 18:46 Duoneb - NEB Q6H PRN SHORTNESS OF BREATH Amiodarone HCl 200 mg 05/31/17 10:00 05/31/17 14:28 Cordarone - PO 200 mg DAILY RABIA Administration Atorvastatin Calcium 20 mg 05/31/17 22:00 05/31/17 21:51 Lipitor - PO 20 mg HS RABIA Administration Emollient Ointment 1 applic 05/31/17 13:45 05/31/17 21:51 Aquaphor - TP 1 applic BID RABIA Administration Insulin Aspart 1 vial 05/30/17 16:30 06/01/17 05:59 Novolog Vial Sliding Scale - SQ Not Given TIDAC [facility] Protocol Nystatin 1 applic 05/31/17 12:30 05/31/17 21:50 Mycostatin Cream - TP 1 applic BID RABIA Administration Pantoprazole Sodium 40 mg 05/30/17 16:30 05/31/17 21:50 Protonix Iv IVPUSH 40 mg BID RABIA Administration Spironolactone 25 mg 05/30/17 16:30 05/31/17 14:28 Aldactone - PO 25 mg DAILY RABIA Administration CBC, BMP 06/01/17 06:48 05/30/2017 CXR cardiomegaly with mild congestion EKG: QTC 524, NSR with new RBBB, ASSESSMENT/PLAN: 72 year old female with pmhx of copd(home o2 ), Afib (on xarelto), DMII, HTN, HLD, peripheral venous stasis, h/o DVT who presented to the ED with worsening sob, dyspnea and generalized weakness was found to have hgb of 5.3 and was admitted to [facility] for further evaluation. # Sever symptomatic microcytic anemia , due to chronic iron deficiency * presented with hgb 5.3 S/P 3 units of PRBCS * monitor H/H daily * Iron studies , b12, folic acid , TSH * GI consult : EGD negative for any bleeding , Colonoscopy today # Acute on chronic respiratory failure , resolving , * likely due to anemia vs COPD exacerbation vs CHF exacerbation unlikely * O2 as needed to keep O2 >89% * BIPAP PRN * Duo-neb PRN * CX-ray with cardiomegaly and mild congestion * continue spirnolactone , Lasix 20 mg pO PRN * F/U ECHO: EF 59.3 # JOHNY on chronic CKD likely pre renal azotemia due to low hgb and low oral intake , improving * Monitor bun/cr # AFIB * rate controlled * Cardiology consult continue current management * Cont Amiodarone 200 mg po daily * hold xarelto due to possible bleeding * 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 [employer] * Echo cardiogram * TropI negative x3 #H/O DMII * last HGBA1c 5.2 per pt * Hold metformin * ISS * BGM TID AC * Diabetic diet # Morbid obesity * consulted about losing weight and modified life style # HTN * lasix 20 mg PRN if over loaded * continue Spirnolactone 25 mg po daily # HLD * started on Lipitor 20 mg po daily # peripheral venous changes * chronic for the last 2 years * hold xarelto * Aquaphore topical BID # H/O left femoral fx 2 years ago, * no surgery was performed , was bed bounded for 3 months after that * PT as tolerated # H/O DVT , * hold on xarelto in term of possible bleeding * US lower ext # FEN * no standing fluids * monitor BMP * npo for now # Proph * DVTS: scds apply both legs * GI: protonix 40 mg IV BID # Dispo * admit to tele * Monitor CBC Q 6 hr Visit type - Emergency Visit Emergency Visit: Yes ED Registration Date: 05/30/17 Care time: The patient presented to the Emergency Department on the above date and was hospitalized for further evaluation of their emergent condition. - New Patient This patient is new to me today: No - Critical Care Critical Care patient: No
[2017-06-01] MEDS: PANTOPRAZOLE SODIUM 40 MG VIAL IVPUSH SCH ×2 (10:00→22:29)
[2017-06-01] MEDS: MINERAL OIL/PET HY-PHL TOPICAL OINTMENT 454 GM JAR TP SCH ×2 (10:00→22:29)
[2017-06-01] MEDS: NYSTATIN 100,000 UNIT/GM TOPICAL CREAM 15 GM TUBE TP SCH ×2 (10:00→22:29)
--- NOTE | 2017-06-01 10:17 | EKG ---
Test Reason : Blood Pressure : / mmHG Vent. Rate : 066 BPM Atrial Rate : 066 BPM P-R Int : 184 ms QRS Dur : 164 ms QT Int : 464 ms P-R-T Axes : 087 021 035 degrees QTc Int : 486 ms NORMAL SINUS RHYTHM RIGHT BUNDLE BRANCH BLOCK ABNORMAL ECG WHEN COMPARED WITH ECG OF 30-MAY-2017 13:47, NO SIGNIFICANT CHANGE WAS FOUND Confirmed by TITA ALCARAZ MD ([id number]) on 06/01/2017 10:17:35 AM Referred By: Confirmed By:TITA ALCARAZ MD
[2017-06-01] MEDS ORDERED: ETOMIDATE 20 MG/10 ML AMPUL IVPUSH ONE (10:32)
[2017-06-01] MEDS ORDERED: LIDOCAINE HCL/PF 2% SDV 5ML VIAL ONE (10:32)
[2017-06-01] MEDS ORDERED: PROPOFOL 20 ML ONE (10:32)
--- NOTE | 2017-06-01 11:53 | PROC ---
Endoscopy Procedure Endoscopy procedure completed. Please see scanned procedure report. cecal mass ascending colon mass transverse and rectal polyps Sx aware Oncology, Cardiology, and Pulmonary consults CT w C/A/P CEA 3 u PRBC Semisolid stool in the left colon, repeat colonoscopy to examine the left colon for lesion before surgical intervention
--- NOTE | 2017-06-01 12:20 | PN ---
Progress Note (short form) - Note Progress Note: s: feeling well post foc. no cp sob dizzy palps o: Vital Signs Period Temp Pulse Resp BP Sys/[place] Pulse Ox Last 24 Hr 97.7 F-98.8 F 65-82 18-22 134-166/46-88 94-99 nad no jvd rrr s1s2 no r/g, + murmur cta bl nl eff pitting/nonpitting edema le bl with chronic stasis changes abd nt nd pos bs no jaundice diaphoresis Current Medications Generic Name Dose Route Start Last Admin Trade Name Freq PRN Reason Stop Dose Admin Albuterol/Ipratropium 1 amp 05/30/17 18:46 Duoneb - NEB Q6H PRN SHORTNESS OF BREATH Amiodarone HCl 200 mg 05/31/17 10:00 05/31/17 14:28 Cordarone - PO 200 mg DAILY RABIA Administration Atorvastatin Calcium 20 mg 05/31/17 22:00 05/31/17 21:51 Lipitor - PO 20 mg HS RABIA Administration Emollient Ointment 1 applic 05/31/17 13:45 05/31/17 21:51 Aquaphor - TP 1 applic BID RABIA Administration Insulin Aspart 1 vial 05/30/17 16:30 06/01/17 05:59 Novolog Vial Sliding Scale - SQ Not Given TIDAC [facility] Protocol Nystatin 1 applic 05/31/17 12:30 05/31/17 21:50 Mycostatin Cream - TP 1 applic BID RABIA Administration Pantoprazole Sodium 40 mg 05/30/17 16:30 05/31/17 21:50 Protonix Iv IVPUSH 40 mg BID RABIA Administration Spironolactone 25 mg 05/30/17 16:30 05/31/17 14:28 Aldactone - PO 25 mg DAILY RABIA Administration ecg 05/30/17: sr, rbbb, nl intervals, no st changes tele: sr cxr: mild congestion echo 05/2017: nl lv/rv, mod as, mild ar a/p: 72 f hx copd, afib, dm, htn, hld, venous insuff/le edema, here with ceja. sob, cp, anemia: -no signs chf or acs (trop negx3) -likely sxs due to severe anemia with hgb in 5s. After prbcs pt reports feeling better. -gi eval found colon mass, likely will need surgery. No cardiac contraindications to GI surgery. pafib: -in sr now -cont amio -was on xarelto, holding due to severe anemia htn: -cont aldactone venous insuff/le edema: -cont aldactone. pt takes prn lasix 20 at home, approx twice a week -echo with nl lvef as: -moderate as, nl lv -routine outpt monitoring
--- NOTE | 2017-06-01 13:22 | PATH ---
Surgical Pathology Report Patient Name: JOHN PAUL HOYOS [facility]. Rec. #: [id number] /Age/Gender: 1945 (Age: 72) / F Account: [id number] Location: 4 W TELEMETRY U Taken: 05/31/2017 Received: 05/31/2017 Reported: 06/01/2017 Physicians: Shimon Koo M.D. Specimen(s) Received A: BX 2ND PORTION DUODENUM B: BX ANTRUM/BODY Clinical History Preoperative diagnosis: Severe anemia Postoperative diagnosis: Gastritis Final Diagnosis A. DUODENUM, SECOND PORTION, BIOPSY: DUODENAL MUCOSA WITH NO PATHOLOGIC CHANGES. NO HISTOLOGIC EVIDENCE OF GLUTEN SENSITIVE ENTEROPATHY (CELIAC SPRUE) IDENTIFIED. B. STOMACH, ANTRUM AND BODY, BIOPSY: MILD REACTIVE GASTROPATHY. IMMUNOSTAIN FOR H. PYLORI IS NEGATIVE. Electronically Signed Max Bell M.D. Gross Description A. Received in formalin, labeled "biopsy second portion duodenum" are 2 aguayo, irregular portions of soft tissue measuring 0.2 and 0.3 cm. in greatest dimension. The specimens are submitted in toto in one cassette. B. Received in formalin, labeled "biopsy antrum/body" are 2 aguayo, irregular portions of soft tissue measuring 0.2 and 0.3 cm. in greatest dimension. The specimens are submitted in toto in one cassette. /05/31/201705/31/2017
[2017-06-01] MEDS: SPIRONOLACTONE 25 MG TABLET (FP) PO SCH ×2 (15:55→18:21)
--- NOTE | 2017-06-01 17:50 | PN ---
Teaching Attending Note Name of Resident: Taurus Anderson ATTENDING PHYSICIAN STATEMENT I saw and evaluated the patient. I reviewed the resident's note and discussed the case with the resident. I agree with the resident's findings and plan as documented. SUBJECTIVE: Comfrotable with no acute distress. going for colonoscopy. OBJECTIVE: Vital Signs Temperature 98.4 F 06/01/17 13:49 Pulse Rate 71 06/01/17 13:49 Respiratory Rate 22 06/01/17 13:49 Blood Pressure 159/59 06/01/17 13:49 O2 Sat by Pulse Oximetry (%) 91 L 06/01/17 12:39 CBCD WBC 8.6 K/mm3 (4.0-10.0) 06/01/17 06:48 RBC 3.18 M/mm3 (3.60-5.2) L 06/01/17 06:48 Hgb 7.7 GM/dL (10.7-15.3) L 06/01/17 06:48 Hct 23.9 % (32.4-45.2) L 06/01/17 06:48 MCV 75.2 fl (80-96) L 06/01/17 06:48 MCHC 32.2 g/dl (32.0-36.0) 06/01/17 06:48 RDW 21.9 % (11.6-15.6) H 06/01/17 06:48 Plt Count 311 K/MM3 (134-434) 06/01/17 06:48 MPV 8.4 fl (7.5-11.1) 06/01/17 06:48 CMP Sodium 143 mmol/L (136-145) 06/01/17 06:40 Potassium 4.2 mmol/L (3.5-5.1) 06/01/17 06:40 Chloride 109 mmol/L (98-107) H 06/01/17 06:40 Carbon Dioxide 24 mmol/L (21-32) 06/01/17 06:40 Anion Gap 10 (8-16) 06/01/17 06:40 BUN 28 mg/dL (7-18) H 06/01/17 06:40 Creatinine 1.5 mg/dL (0.55-1.02) H 06/01/17 06:40 Creat Clearance w eGFR 33.94 (>60) 06/01/17 06:40 Random Glucose 91 mg/dL (74-106) 06/01/17 06:40 Calcium 7.6 mg/dL (8.5-10.1) L 06/01/17 06:40 Total Bilirubin 1.1 mg/dL (0.2-1.0) H D 06/01/17 06:40 AST 8 U/L (15-37) L 06/01/17 06:40 ALT 9 U/L (12-78) L 06/01/17 06:40 Alkaline Phosphatase 72 U/L (45-117) 06/01/17 06:40 Total Protein 5.4 g/dl (6.4-8.2) L 06/01/17 06:40 Albumin 3.2 g/dl (3.4-5.0) L 06/01/17 06:40 CARDIAC ENZYMES Creatine Kinase 28 IU/L (26-192) 05/30/17 13:10 Troponin I 0.02 ng/ml (0.00-0.05) 05/31/17 00:40 Current Medications Generic Name Dose Route Start Last Admin Trade Name Freq PRN Reason Stop Dose Admin Albuterol/Ipratropium 1 amp 05/30/17 18:46 Duoneb - NEB Q6H PRN SHORTNESS OF BREATH Amiodarone HCl 200 mg 05/31/17 10:00 05/31/17 14:28 Cordarone - PO 200 mg DAILY RABIA Administration Atorvastatin Calcium 20 mg 05/31/17 22:00 05/31/17 21:51 Lipitor - PO 20 mg HS RABIA Administration Emollient Ointment 1 applic 05/31/17 13:45 05/31/17 21:51 Aquaphor - TP 1 applic BID RABIA Administration Insulin Aspart 1 vial 05/30/17 16:30 06/01/17 11:00 Novolog Vial Sliding Scale - SQ Not Given TIDAC [facility] Protocol Nystatin 1 applic 05/31/17 12:30 05/31/17 21:50 Mycostatin Cream - TP 1 applic BID RABIA Administration Pantoprazole Sodium 40 mg 05/30/17 16:30 05/31/17 21:50 Protonix Iv IVPUSH 40 mg BID RABIA Administration Spironolactone 25 mg 05/30/17 16:30 06/01/17 15:55 Aldactone - PO Not Given DAILY [facility] Home Medications Medication Instructions Recorded Amiodarone HCl 200 mg PO DAILY 05/30/17 Furosemide [Lasix] 20 mg PO TUTH 05/30/17 Metformin HCl 500 mg PO BID 05/30/17 Rivaroxaban [Xarelto -] 20 mg PO DAILY 05/30/17 Spironolactone 25 mg PO DAILY 05/30/17 Urine Test Results Urine Color Ltyellow 05/30/17 13:37 Urine Appearance Clear 05/30/17 13:37 Urine pH 5.0 (5.0-8.0) 05/30/17 13:37 Ur Specific [place] 1.016 (1.001-1.035) 05/30/17 13:37 Urine Protein Negative (NEGATIVE) 05/30/17 13:37 Urine Glucose (UA) Negative (NEGATIVE) 05/30/17 13:37 Urine Ketones Negative (NEGATIVE) 05/30/17 13:37 Urine Blood Negative (NEGATIVE) 05/30/17 13:37 Urine Nitrite Negative (NEGATIVE) 05/30/17 13:37 Urine Bilirubin Negative (NEGATIVE) 05/30/17 13:37 Ur Leukocyte Esterase Trace (NEGATIVE) 05/30/17 13:37 Ur Epithelial Cells Rare /HPF (FEW) 05/30/17 13:37 Urine Mucus Rare 05/30/17 13:37 PE: comfortable, off Bipap, NAD, on 2 L NC Chest: Decreased BS BL otherwise no crackles Heart: S1S2 positive, Brittni 3/6 aBDOMEN: SOFT,Nt, Obese extremities: Chronic changes, with yellow crusting lymphedema bl ECHO: Moderate , MILD AR, ejf 59% cxr: MILD CONGESTION ASSESSMENT AND PLAN: Patient is a 72 yo Female with h/o a-fib on xarelto, chf and COPD admitted to telemetry for having SOB and was found to have hemoglobin of 5.3. # Acute severe anemia possible due to blood loss , S/P 2 UNIT OF BLOOD TRANSFUSION hemoglobin 5.3-->7.7 now , Gi AND CARDIO ARE ON THE CASE. for Colonoscopy today .As per her PMD , she was within normal range 9 months ago, Protonix 40mg IV BID, Hold Xarelto dose for now. GI consult Dr. Koo appreciated, going for colonoscopy today stool ocb # Acute severe microcytic anemia , will monitor, s/p 2 units of PRBC, hemoglobin is 7.7 today # Hx of COPD off Bipap now , patient is no longer on Bipap # Afib rate controlled OFF Xarelto for now since was found to have low hemoglobin , will continue to hold now, continue Amiodarone , TSH level is low , will check Free T4 and Free T3, cardiology consult appreciated . CEq6 x 3 neg. # Hx of DVT on Xarelto will hold off for now, duplex of LE # T2DM on Metformin hold it for now, sliding scale with coverage. # ARF due to acute blood loss, hold Metformin, transfuse , repeat H/H, monitor # Morbid Obesity NPO for now DVT px: Xarelto, will hold it for now.
[2017-06-01] MEDS: AMIODARONE HCL 200 MG TABLET (FP) PO SCH (18:21)
[2017-06-01] MEDS: ALBUTEROL SO4 2.5/IPRATROPIUM 0.5 INH SOL 3 ML VIAL.NEB. NEB PRN (19:06)
--- NOTE | 2017-06-01 21:28 | PN ---
Progress Note (short form) - Note Progress Note: Patient seen and examined arousable but slightly sedated post procedure colonoscopy showed cecal and ascending colon mass AFVSs Cor: RSR, No murmurs, No gallops Lungs: Clear to P&A Abd: Soft, Normal bowel sounds, No organomegaly Ext:No significant edema Labs reviewed A/P 72 y/o patient with Severe Fe-Def anemia. (ferritin of 8) GI w/u --EGD negative /colonoscopy --cecal and ascending colon mass. will need staging W/U with CT c/a/p. chek CEA level also with COPD Afib , ?h/o DVT on AC ( now held due to severe anemia ). cardiology following chronic LE edema/venous insufficiency
[2017-06-01] MEDS: ATORVASTATIN CA 20 MG TABLET (FP) PO SCH (22:29)
[2017-06-02] MEDS: INSULIN SLIDING SCALE (NOVOLOG) 1 VIAL SQ SCH ×3 (06:41→17:50)
--- NOTE | 2017-06-02 08:24 | CONSULT ---
Consult Consult Specialty:: general surgery Referred by:: Hanane Reason for Consultation:: cecal mass seen on colonoscopy - History of Present Illness Chief Complaint: cecal mass History of Present Illness: 72 yo female PMH COPD(home oxygen, concentrator), Afib (on xarelto), DM type 2 ( on metformin) , HTN, morbid obesity, HLD, peripheral venous stasis, h/o DVT who presented to the ED with worsening sob, dyspnea and generalized weakness and was admitted to telemetry for further evaluation. patient reports generalized weakness since April 2017 and has been worsening for the last 2 weeks that she could not reach to bath room. No history of colon cancer, no change in the caliber of her stool. She denies constipation and diarrhea. She has noticed no weight loss. In the ED patient was found to have HGb 5.3. She as appropriately transfused. No report of blood or dark bowel movements, denies any hematemesis. She denies using any NSAIDS. last CBC 9 months ago was normal per her PCP. last seen by him on April for SOB. Her customer service technician is Dr. Vicenet Buck ([phone]) in [facility]. No previous abdominal surgeries. We were called to assess. - History Source History Provided By: Patient, Medical Record Limitations to Obtaining History: No Limitations - Past Medical History Cardio/Vascular: Yes: AFIB (on xeralto), HTN, Hyperlipdemia Pulmonary: Yes: COPD, O2 Dependent Endocrine: Yes: Diabetes Mellitus - Past Surgical History Additional Surgical History: left knee arthroplast - Alcohol/Substance Use Hx Alcohol Use: No - Smoking History Smoking history: Former smoker Have you smoked in the past 12 months: No If you are a former smoker, when did you quit?: 1969 - Social History Usual Living Arrangement: Alone (in [place]) Place of : [facility] History of Recent Travel: No Home Medications - Allergies Allergies/Adverse Reactions: Allergies Allergy/AdvReac Type Severity Reaction Status Date / Time No Known Allergies Allergy Verified 05/30/17 12:09 - Home Medications Home Medications: Ambulatory Orders Amiodarone HCl 200 mg PO DAILY 05/30/17 Furosemide [Lasix] 20 mg PO TUTH 05/30/17 Metformin HCl 500 mg PO BID 05/30/17 Rivaroxaban [Xarelto -] 20 mg PO DAILY 05/30/17 Spironolactone 25 mg PO DAILY 05/30/17 Review of Systems - Review of Systems Constitutional: reports: Weakness. denies: Chills, Fever, Lethargy Eyes: denies: Blurred Vision, Recent Change in Vision HENT: denies: Difficult Swallowing, Throat Pain Neck: denies: Pain on Movement, Tenderness Cardiovascular: reports: Edema, Shortness of Breath. denies: Chest Pain, Palpitations Respiratory: reports: Exercise Intolerance, Orthopnea, SOB, SOB on Exertion. denies: Wheezing Gastrointestinal: denies: Abdominal Pain, Bloating, Constipation, Diarrhea, Indigestion, Nausea, Vomiting Genitourinary: denies: Discharge, Dysuria Breasts: reports: No Symptoms Reported. denies: Pain Musculoskeletal: reports: Joint Pain (left knee rapalcement). denies: Muscle Pain, Muscle Weakness Integumentary: denies: Bruising, Lesions, Wound Endocrine: denies: Unexplained Weight Gain, Unexplained Weight Loss Hematology/Lymphatic: reports: Easily Bruised. denies: Excessive Bleeding Psychiatric: denies: Altered Sleep Pattern, Anxiety, Depression Physical Exam Vital Signs: Vital Signs Temperature 97.8 F 06/02/17 06:00 Pulse Rate 72 06/02/17 06:00 Respiratory Rate 20 06/02/17 06:00 Blood Pressure 158/70 06/02/17 06:00 O2 Sat by Pulse Oximetry (%) 92 L 06/01/17 21:00 Constitutional: Yes: No Distress, Calm, Obese, Other (huffing and puffing in bed with 2 pillows) HENT: Yes: Atraumatic, Normocephalic Neck: Yes: Supple, Trachea Midline Cardiovascular: Yes: Regular Rate and Rhythm, S1, S2 Gastrointestinal: Yes: Normal Bowel Sounds, Soft, Abdomen, Obese. No: Hemorrhoids, Hepatomegaly, Hernia, Tenderness, Tenderness, Epigastrium, Tenderness, Rebound ...Rectal Exam: Yes: Sphincter Tone Normal. No: Hemorrhoids/External, Induration, Inflammation, Mass Renal/: No: CVA Tenderness - Left, CVA Tenderness - Right Musculoskeletal: No: Muscle Pain, Muscle Weakness Extremities: Yes: Other (bilateral LE circumferential calf pink venous stasis chnages.). No: Cool, Cyanosis Edema: Yes Edema: LLE: 1+, RLE: 1+ Peripheral Pulses WNL: Yes Integumentary: No: Jaundice, Rash Neurological: Yes: Alert, Oriented, Loss of Sensation (hands and feet bilaterally) Psychiatric: Yes: Alert, Oriented Labs: CBC,CMP WBC 9.8 K/mm3 (4.0-10.0) 06/02/17 08:09 RBC 4.19 M/mm3 (3.60-5.2) D 06/02/17 08:09 Hgb 10.8 GM/dL (10.7-15.3) D 06/02/17 08:09 Hct 32.7 % (32.4-45.2) D 06/02/17 08:09 MCV 78.1 fl (80-96) L 06/02/17 08:09 MCH 25.8 pg (25.7-33.7) 06/02/17 08:09 MCHC 33.0 g/dl (32.0-36.0) 06/02/17 08:09 RDW 21.7 % (11.6-15.6) H 06/02/17 08:09 Plt Count 278 K/MM3 (134-434) 06/02/17 08:09 MPV 7.8 fl (7.5-11.1) 06/02/17 08:09 Neutrophils % 88.2 % (42.8-82.8) H 06/02/17 08:09 Lymphocytes % 4.2 % (8-40) L D 06/02/17 08:09 Monocytes % 6.4 % (3.8-10.2) 06/02/17 08:09 Eosinophils % 0.7 % (0-4.5) 06/02/17 08:09 Basophils % 0.5 % (0-2.0) 06/02/17 08:09 Retic Count 2.74 % (0.5-1.5) H 05/30/17 13:55 Haptoglobin 226 mg/dL (34-200) H 06/01/17 06:48 Sodium 141 mmol/L (136-145) 06/02/17 08:09 Potassium 3.9 mmol/L (3.5-5.1) 06/02/17 08:09 Chloride 108 mmol/L (98-107) H 06/02/17 08:09 Carbon Dioxide 24 mmol/L (21-32) 06/02/17 08:09 Anion Gap 9 (8-16) 06/02/17 08:09 BUN 20 mg/dL (7-18) H 06/02/17 08:09 Creatinine 1.2 mg/dL (0.55-1.02) H 06/02/17 08:09 Creat Clearance w eGFR 43.91 (>60) 06/02/17 08:09 POC Glucometer 146 UNITS (80-120) 06/02/17 11:41 Random Glucose 121 mg/dL (74-106) H 06/02/17 08:09 Hemoglobin A1c % 5.2 % (4.8-6.0) 05/30/17 12:00 Calcium 7.8 mg/dL (8.5-10.1) L 06/02/17 08:09 Phosphorus 4.0 mg/dL (2.5-4.9) 05/31/17 09:40 Magnesium 2.0 mg/dL (1.8-2.4) 05/31/17 09:40 Iron 11 ug/dL (27-139) L 05/30/17 12:00 TIBC 362 ug/dL (250-450) 05/30/17 12:00 Iron Saturation 3 % (15-55) L 05/30/17 12:00 Transferrin 292 mg/dL (200-370) 05/30/17 13:55 Ferritin 8.703 ng/ml (6.9-282.5) 05/30/17 13:55 Total Bilirubin 1.7 mg/dL (0.2-1.0) H D 06/02/17 08:09 AST 8 U/L (15-37) L 06/02/17 08:09 ALT 10 U/L (12-78) L 06/02/17 08:09 Alkaline Phosphatase 76 U/L (45-117) 06/02/17 08:09 LD Total 215 U/L (91-180) H 06/01/17 06:48 Creatine Kinase 28 IU/L (26-192) 05/30/17 13:10 Troponin I 0.02 ng/ml (0.00-0.05) 05/31/17 00:40 B-Natriuretic Peptide 941.01 pg/ml (5-125) H 05/30/17 13:10 Total Protein 5.7 g/dl (6.4-8.2) L 06/02/17 08:09 Albumin 3.2 g/dl (3.4-5.0) L 06/02/17 08:09 Vitamin B12 452 pg/ml (180-914) 06/01/17 06:48 Serum Folate 9 ng/ml (3.1-17.5) 06/01/17 06:48 TSH 0.10 uIU/ml (0.358-3.74) L 06/01/17 06:48 Free T4 1.94 ng/dl (0.76-1.46) H 06/01/17 06:48 Free T3 2.0 pg/ml (2.0-4.4) 06/01/17 06:48 Imaging - Results Chest X-ray: Report Reviewed, Image Reviewed Cat Scan: Pending Problem List - Problems (1) Cecum mass Assessment/Plan: 72 yo female MMP with chronic blood loss anemia, weakness, and a newly discovered cecum and ascending colon mass on lower endoscopy. She is ammenable to the idea of having surgery if it is indicated but expressed concern about her fitness for such a procedure. Initial cardiology evaluation notes that she has high perioperative risk for an event based on sever . She may be better served having surgery at a tertiary hospital. Properative optimization Tumor markers (CEA, Ca125, CA19-9) Appreciate Cardiology and Pulmonary reccomendations CT scan Chest/ Abdomen/ Pelvis with IV and PO contrast Medical oncology for staging workup Nutritional optimization Will discuss with primary team Code(s): K63.9 - DISEASE OF INTESTINE, UNSPECIFIED (2) Anemia Code(s): D64.9 - ANEMIA, UNSPECIFIED Qualifiers: Iron deficiency anemia type: chronic blood loss (3) COPD (chronic obstructive pulmonary disease) Code(s): J44.9 - CHRONIC OBSTRUCTIVE PULMONARY DISEASE, UNSPECIFIED (4) Morbid obesity due to excess calories Code(s): E66.01 - MORBID (SEVERE) OBESITY DUE TO EXCESS CALORIES
[2017-06-02 08:50] LABS: BASO % 0.5 % (0-2.0); EOS % 0.7 % (0-4.5); HEMATOCRIT 32.7 % (32.4-45.2); HEMOGLOBIN 10.8 GM/dL (10.7-15.3); LYMPH % 4.2 % (8-40); MCH 25.8 pg (25.7-33.7); MEAN CELL VOLUME 78.1 fl (80-96); MEAN PLT VOLUME 7.8 fl (7.5-11.1); MONO % 6.4 % (3.8-10.2); NEUT % 88.2 % (42.8-82.8); PLATELET COUNT 278 K/MM3 (134-434); RBC 4.19 M/mm3 (3.60-5.2); RDW 21.7 % (11.6-15.6); WHITE BLOOD COUNT 9.8 K/mm3 (4.0-10.0)
--- NOTE | 2017-06-02 09:03 | PN ---
Progress Note, Physician Chief Complaint: preop History of Present Illness: prolonged expirations at rest in bed--feels she is no more sob than her usual copd baseline waxing and waning leg swelling chronically--worse of late at home no cp, palpitations remote cigs - Current Medication List Current Medications: Active Medications Albuterol/Ipratropium (Duoneb -) 1 amp NEB Q6H PRN PRN Reason: SHORTNESS OF BREATH Last Admin: 06/01/17 19:06 Dose: 1 amp Amiodarone HCl (Cordarone -) 200 mg PO DAILY [facility] Last Admin: 06/01/17 18:21 Dose: 200 mg Atorvastatin Calcium (Lipitor -) 20 mg PO HS [facility] Last Admin: 06/01/17 22:29 Dose: 20 mg Emollient Ointment (Aquaphor -) 1 applic TP BID [facility] Last Admin: 06/01/17 22:29 Dose: 1 applic Insulin Aspart (Novolog Vial Sliding Scale -) 1 vial SQ TIDAC [facility] PRN Reason: Protocol Last Admin: 06/02/17 06:41 Dose: Not Given Nystatin (Mycostatin Cream -) 1 applic TP BID [facility] Last Admin: 06/01/17 22:29 Dose: 1 applic Pantoprazole Sodium (Protonix Iv) 40 mg IVPUSH BID [facility] Last Admin: 06/01/17 22:29 Dose: 40 mg Spironolactone (Aldactone -) 25 mg PO DAILY [facility] Last Admin: 06/01/17 18:21 Dose: 25 mg - Objective Vital Signs: Vital Signs Temperature 97.8 F 06/02/17 06:00 Pulse Rate 72 06/02/17 06:00 Respiratory Rate 20 06/02/17 06:00 Blood Pressure 158/70 06/02/17 06:00 O2 Sat by Pulse Oximetry (%) 92 L 06/01/17 21:00 Constitutional: Yes: No Distress, Calm, Obese Eyes: No: Sclera Icterus HENT: No: Nasal Congestion Neck: Yes: Other Cardiovascular: Yes: Regular Rate and Rhythm, JVD, Murmur (high-pitched early peak GYPSY rusb. single S2. decr carotid pulse intensity), S1, S2, Other (PMI non diplaced). No: Gallop Respiratory: Yes: CTA Bilaterally. No: Accessory Muscle Use, Rales, Wheezes Gastrointestinal: Yes: Normal Bowel Sounds, Soft. No: Tenderness Musculoskeletal: Yes: Other (No kyphosis) Extremities: No: Cold Edema: Yes (LEs) Integumentary: No: Jaundice Neurological: Yes: Alert, Oriented (x3) Psychiatric: No: Agitated Labs: CBC, BMP 06/02/17 08:09 INR, PTT INR 1.16 (0.82-1.09) H 05/31/17 09:40 Assessment/Plan ecg 05/30/17: sr, rbbb, nl intervals, no st changes cxr: mild congestion echo 05/2017: nl lv/rv, mod as (peak/mean gradients 68/36, WOO 1.1. LVOT 2.0, LVOT VTI = 39) *ECHO IMAGES REVIEWED BY DR PARISH: i believe measured LVOT (2.1cm) is erroneous , and LVOT dimension is actually 1.7-1.8cm. There is an unusually high LVOT velocity/VTI (39 cm), despite apparently normal cursor positioning on the apical 3-chamber view. Peak and mean AV gradients are 63-69/32-37 mmHg, respectively. AV VTI is 98-102 (multiple doppler envelopes traced). Estimated WOO using these numbers comes to 0.8-0.9 cm2. a/p: 72 f hx copd, afib, dm, htn, hld, venous insuff/le edema, here with ceja. sob, cp, anemia, acute diast chf: -no signs chf or acs (trop negx3) -likely sxs due to severe anemia with hgb in 5s. After prbcs pt reports feeling better, and feels she is at her copd baseline as far as nonexertional, mild breathlessness. -however there is evidence of decompensated chf with elevated JVD on exam. suspect severe as well. CXR diffuse markings (without vasc redistribution) = ? interstitial edema -pt needs to be optimized prior to colon surgery. -lasix 40mg IVP x 1 today -assess weights, labs daily colon mass, preop CV eval: -gi eval found colon mass, likely will need surgery. dr garcia consulted. aortic stenosis: -suspect severe based on phys exam (single S2, decr carotid intensity), AV gradients, and WOO 0.8-0.9 when LVOT re-measured manually by me (on multiple frames). -HOWEVER: echo was performed while pt was severely anemic (hgb 6s-7s that day, ) which often spuriously increases gradients/VTIs--while this may incr VTI in LVOT and across AV proportionally, hence leading to similar WOO estimation, cannot predict that with certainty. -rec repeat echo on sunday for limited ao stenosis gradients/VTIs. -will d/w dr garcia the high periop CV risk if pt has severe (especially since she is likely currently in mild decompensated CHF) pafib: -in sr now -cont amio for now--may need to reconsider in light of new hyperthyroidism. -was on xarelto, holding due to severe anemia preop CV risk eval: -Revised CV Risk Index = 1, unknown functional status -currently suspect mildly decompensated chf--optimizing this prior to surgery -suspect severe but this needs to be confirmed with repeat echo, as disc'd above. -if severe present, this will impart high risk of periop CV complications. if appears moderate, her risk will be in the intermediate range. copd: -pt reports this dx, with chronic sob she attributes -stable, no signs a.e. renal insufficiency: -creat 1.5-1.6 here, no baseline data available -renal fxn remains stable -trend labs daily for now, given diuresis starting htn: -reasonably controlled -cont aldactone hyperthyroidism: -low TSH, elevated free T4 -pt on amiodarone -per hospitalist venous insuff/le edema: -worsened of late ? due to chf -diuresis as above
[2017-06-02 09:23] LABS: ALBUMIN 3.2 g/dl (3.4-5.0); ANION GAP 9 (8-16); BILIRUBIN,TOTAL 1.7 mg/dL (0.2-1.0); BLOOD UREA NITROGEN 20 mg/dL (7-18); CALCIUM 7.8 mg/dL (8.5-10.1); CHLORIDE 108 mmol/L (98-107); CO2 24 mmol/L (21-32); CREATININE 1.2 mg/dL (0.55-1.02); GLUCOSE,RANDOM 121 mg/dL (74-106); POTASSIUM 3.9 mmol/L (3.5-5.1); SGOT/AST 8 U/L (15-37); SGPT/ALT 10 U/L (12-78); SODIUM 141 mmol/L (136-145); TOT PROT 5.7 g/dl (6.4-8.2)
[2017-06-02 09:24] LABS: ALK PHOS 76 U/L (45-117)
[2017-06-02] MEDS: MINERAL OIL/PET HY-PHL TOPICAL OINTMENT 454 GM JAR TP SCH ×2 (10:13→22:24)
[2017-06-02] MEDS: AMIODARONE HCL 200 MG TABLET (FP) PO SCH (10:13)
[2017-06-02] MEDS: SPIRONOLACTONE 25 MG TABLET (FP) PO SCH (10:13)
[2017-06-02] MEDS: PANTOPRAZOLE SODIUM 40 MG VIAL IVPUSH SCH ×2 (10:14→22:24)
[2017-06-02] MEDS: NYSTATIN 100,000 UNIT/GM TOPICAL CREAM 15 GM TUBE TP SCH ×2 (10:14→22:24)
[2017-06-02] MEDS: ALBUTEROL SO4 2.5/IPRATROPIUM 0.5 INH SOL 3 ML VIAL.NEB. NEB PRN (10:17)
[2017-06-02] MEDS ORDERED: FUROSEMIDE 40 MG/4 ML INJECTABLE VIAL IVPUSH ONE (12:42)
--- NOTE | 2017-06-02 14:46 | PN ---
Progress Note (short form) - Note Progress Note: Patient feels upset that has a cancer. Otherwise has no changes. Vital Signs Temperature 99.2 F 06/02/17 13:58 Pulse Rate 76 06/02/17 13:58 Respiratory Rate 22 06/02/17 13:58 Blood Pressure 153/57 06/02/17 13:58 O2 Sat by Pulse Oximetry (%) 92 L 06/02/17 09:00 PE: comfortable, off Bipap, NAD, on 2 L NC, Chest: Decreased BS BL otherwise no crackles Heart: S1S2 positive, Brittni 3/6 aBDOMEN: SOFT,Nt, Obese extremities: Chronic changes, lymphedema bl, moist cream bl CBCD WBC 9.8 K/mm3 (4.0-10.0) 06/02/17 08:09 RBC 4.19 M/mm3 (3.60-5.2) D 06/02/17 08:09 Hgb 10.8 GM/dL (10.7-15.3) D 06/02/17 08:09 Hct 32.7 % (32.4-45.2) D 06/02/17 08:09 MCV 78.1 fl (80-96) L 06/02/17 08:09 MCHC 33.0 g/dl (32.0-36.0) 06/02/17 08:09 RDW 21.7 % (11.6-15.6) H 06/02/17 08:09 Plt Count 278 K/MM3 (134-434) 06/02/17 08:09 MPV 7.8 fl (7.5-11.1) 06/02/17 08:09 CMP Sodium 141 mmol/L (136-145) 06/02/17 08:09 Potassium 3.9 mmol/L (3.5-5.1) 06/02/17 08:09 Chloride 108 mmol/L (98-107) H 06/02/17 08:09 Carbon Dioxide 24 mmol/L (21-32) 06/02/17 08:09 Anion Gap 9 (8-16) 06/02/17 08:09 BUN 20 mg/dL (7-18) H 06/02/17 08:09 Creatinine 1.2 mg/dL (0.55-1.02) H 06/02/17 08:09 Creat Clearance w eGFR 43.91 (>60) 06/02/17 08:09 Random Glucose 121 mg/dL (74-106) H 06/02/17 08:09 Calcium 7.8 mg/dL (8.5-10.1) L 06/02/17 08:09 Total Bilirubin 1.7 mg/dL (0.2-1.0) H D 06/02/17 08:09 AST 8 U/L (15-37) L 06/02/17 08:09 ALT 10 U/L (12-78) L 06/02/17 08:09 Alkaline Phosphatase 76 U/L (45-117) 06/02/17 08:09 Total Protein 5.7 g/dl (6.4-8.2) L 06/02/17 08:09 Albumin 3.2 g/dl (3.4-5.0) L 06/02/17 08:09 CARDIAC ENZYMES Creatine Kinase 28 IU/L (26-192) 05/30/17 13:10 Troponin I 0.02 ng/ml (0.00-0.05) 05/31/17 00:40 Current Medications Generic Name Dose Route Start Last Admin Trade Name Freq PRN Reason Stop Dose Admin Albuterol/Ipratropium 1 amp 05/30/17 18:46 06/02/17 10:17 Duoneb - NEB 1 amp Q6H PRN Administration SHORTNESS OF BREATH Amiodarone HCl 200 mg 05/31/17 10:00 06/02/17 10:13 Cordarone - PO 200 mg DAILY [facility] Administration Atorvastatin Calcium 20 mg 05/31/17 22:00 06/01/17 22:29 Lipitor - PO 20 mg HS [facility]ABIA Administration Emollient Ointment 1 applic 05/31/17 13:45 06/02/17 10:13 Aquaphor - TP 1 applic BID [facility] Administration Insulin Aspart 1 vial 05/30/17 16:30 06/02/17 12:22 Novolog Vial Sliding Scale - SQ Not Given TIDAC [facility] Protocol Nystatin 1 applic 05/31/17 12:30 06/02/17 10:14 Mycostatin Cream - TP 1 applic BID [facility] Administration Pantoprazole Sodium 40 mg 05/30/17 16:30 06/02/17 10:14 Protonix Iv IVPUSH 40 mg BID [facility] Administration Spironolactone 25 mg 05/30/17 16:30 06/02/17 10:13 Aldactone - PO 25 mg DAILY [facility] Administration Home Medications Medication Instructions Recorded Amiodarone HCl 200 mg PO DAILY 05/30/17 Furosemide [Lasix] 20 mg PO TUTH 05/30/17 Metformin HCl 500 mg PO BID 05/30/17 Rivaroxaban [Xarelto -] 20 mg PO DAILY 05/30/17 Spironolactone 25 mg PO DAILY 05/30/17 ECHO: Moderate , MILD AR, ejf 59% cxr: MILD CONGESTION ASSESSMENT AND PLAN: Patient is a 72 yo Female with h/o a-fib on xarelto, chf and COPD admitted to telemetry for having SOB and was found to have hemoglobin of 5.3. # DVT of Left common femoral vein: can't anticoagulate the patient since presented with severe bleed. and per discussion with GI , patient can't be anticoagulated. off Xarelto , will need IVC filter, vascular surgey consult , [place] # Acute severe anemia due to acute blood loss , S/P 2 UNIT OF BLOOD TRANSFUSION hemoglobin 5.3-->7.7-->10.8 now , Gi AND CARDIO ARE ON THE CASE. s/p Colonoscopy: positive for a mass of 2x2 cm a newly discovered cecum and ascending colon mass on lower endoscopy. .continue protonix 40mg IV BID, Hold Xarelto for now. GI consult Dr. Koo appreciated. # Acute severe microcytic anemia , will monitor, s/p 2 units of PRBC, hemoglobin is 7.7-->10.8 today # Hx of COPD off Bipap now , patient is no longer on Bipap , patient is at baseline # Afib rate controlled OFF Xarelto for now since was found to have low hemoglobin , will continue to hold now, continue Amiodarone , TSH level is low , and FT4 is elevated ; Hyperthyroidism , will repeat the level in am , if still elevated then will start the patient on Methimazole 5mg . # Hx of DVT on Xarelto will hold off for now, duplex of LE # T2DM on Metformin hold it for now, sliding scale with coverage c ontinue. # ARF due to acute blood loss, hold Metformin, s/p transfusion , repeat H/H, monitor # Morbid Obesity NPO for now DVT px: Xarelto, will hold it for now. Visit type - Emergency Visit Emergency Visit: Yes ED Registration Date: 05/30/17 Care time: The patient presented to the Emergency Department on the above date and was hospitalized for further evaluation of their emergent condition. - New Patient This patient is new to me today: No - Critical Care Critical Care patient: No - Discharge Referral Referred to [facility] Med P.C.: No
[2017-06-02] MEDS ORDERED: PEG 3350/NA SULF BICARB CL/KCL 4000 ML SOLN.RECON PO ONE (17:00)
--- NOTE | 2017-06-02 17:16 | PN ---
Progress Note, Physician History of Present Illness: no events. Sx eval noted - Current Medication List Current Medications: Active Medications Albuterol/Ipratropium (Duoneb -) 1 amp NEB Q6H PRN PRN Reason: SHORTNESS OF BREATH Last Admin: 06/02/17 10:17 Dose: 1 amp Amiodarone HCl (Cordarone -) 200 mg PO DAILY [facility] Last Admin: 06/02/17 10:13 Dose: 200 mg Atorvastatin Calcium (Lipitor -) 20 mg PO HS [facility] Last Admin: 06/01/17 22:29 Dose: 20 mg Emollient Ointment (Aquaphor -) 1 applic TP BID [facility] Last Admin: 06/02/17 10:13 Dose: 1 applic Insulin Aspart (Novolog Vial Sliding Scale -) 1 vial SQ TIDAC [facility] PRN Reason: Protocol Last Admin: 06/02/17 12:22 Dose: Not Given Nystatin (Mycostatin Cream -) 1 applic TP BID [facility] Last Admin: 06/02/17 10:14 Dose: 1 applic Pantoprazole Sodium (Protonix Iv) 40 mg IVPUSH BID [facility] Last Admin: 06/02/17 10:14 Dose: 40 mg Spironolactone (Aldactone -) 25 mg PO DAILY [facility] Last Admin: 06/02/17 10:13 Dose: 25 mg - Objective Vital Signs: Vital Signs Temperature 99.2 F 06/02/17 13:58 Pulse Rate 76 06/02/17 13:58 Respiratory Rate 22 06/02/17 13:58 Blood Pressure 153/57 06/02/17 13:58 O2 Sat by Pulse Oximetry (%) 98 06/02/17 16:49 Constitutional: Yes: No Distress, Calm Gastrointestinal: Yes: Soft. No: Tenderness Labs: CBC, BMP 06/02/17 08:09 06/02/17 08:09 INR, PTT INR 1.16 (0.82-1.09) H 05/31/17 09:40 Problem List - Problems (1) Colonic mass Code(s): K63.9 - DISEASE OF INTESTINE, UNSPECIFIED (2) Cecum mass Code(s): K63.9 - DISEASE OF INTESTINE, UNSPECIFIED Assessment/Plan await pathology, CT results
[2017-06-02] MEDS: ATORVASTATIN CA 20 MG TABLET (FP) PO SCH (22:23)
[2017-06-03] MEDS: INSULIN SLIDING SCALE (NOVOLOG) 1 VIAL SQ SCH ×3 (06:50→17:37)
[2017-06-03] MEDS: ALBUTEROL SO4 2.5/IPRATROPIUM 0.5 INH SOL 3 ML VIAL.NEB. NEB PRN (07:47)
[2017-06-03 08:10] LABS: EOS % 2.9 % (0-4.5); HEMATOCRIT 32.4 % (32.4-45.2); HEMOGLOBIN 10.6 GM/dL (10.7-15.3); LYMPH % 6.9 % (8-40); MCHC 32.7 g/dl (32.0-36.0); MEAN CELL VOLUME 79.3 fl (80-96); MEAN PLT VOLUME 8.2 fl (7.5-11.1); MONO % 7.7 % (3.8-10.2); NEUT % 81.5 % (42.8-82.8); PLATELET COUNT 224 K/MM3 (134-434); RBC 4.08 M/mm3 (3.60-5.2); RDW 21.8 % (11.6-15.6); WHITE BLOOD COUNT 7.9 K/mm3 (4.0-10.0)
--- NOTE | 2017-06-03 08:13 | PN ---
Progress Note, Physician Chief Complaint: chf History of Present Illness: breathing feels "same" leg swelling same no cp, palpitations remote ex cigs - Current Medication List Current Medications: Active Medications Albuterol/Ipratropium (Duoneb -) 1 amp NEB Q6H PRN PRN Reason: SHORTNESS OF BREATH Last Admin: 06/03/17 07:47 Dose: 1 amp Amiodarone HCl (Cordarone -) 200 mg PO DAILY [facility] Last Admin: 06/02/17 10:13 Dose: 200 mg Atorvastatin Calcium (Lipitor -) 20 mg PO HS [facility] Last Admin: 06/02/17 22:23 Dose: 20 mg Emollient Ointment (Aquaphor -) 1 applic TP BID [facility] Last Admin: 06/02/17 22:24 Dose: 1 applic Insulin Aspart (Novolog Vial Sliding Scale -) 1 vial SQ TIDAC [facility] PRN Reason: Protocol Last Admin: 06/03/17 06:50 Dose: Not Given Nystatin (Mycostatin Cream -) 1 applic TP BID [facility] Last Admin: 06/02/17 22:24 Dose: 1 applic Pantoprazole Sodium (Protonix Iv) 40 mg IVPUSH BID [facility] Last Admin: 06/02/17 22:24 Dose: 40 mg Spironolactone (Aldactone -) 25 mg PO DAILY [facility] Last Admin: 06/02/17 10:13 Dose: 25 mg - Objective Vital Signs: Vital Signs Temperature 97.5 F L 06/03/17 06:00 Pulse Rate 65 06/03/17 06:00 Respiratory Rate 18 06/03/17 06:00 Blood Pressure 135/57 06/03/17 06:00 O2 Sat by Pulse Oximetry (%) 95 06/02/17 21:00 Constitutional: Yes: No Distress, Calm Eyes: No: Sclera Icterus HENT: No: Nasal Congestion Cardiovascular: Yes: Regular Rate and Rhythm, JVD, Murmur (hi pitched GYPSY LUSB, single S2), S1, S2, Other (PMI non diplaced). No: Gallop Respiratory: Yes: CTA Bilaterally. No: Accessory Muscle Use, Rales, Wheezes Gastrointestinal: Yes: Normal Bowel Sounds, Soft. No: Tenderness Musculoskeletal: Yes: Other (No kyphosis) Extremities: No: Cold Edema: Yes Integumentary: No: Jaundice Neurological: Yes: Alert, Oriented (x3) Psychiatric: No: Agitated Labs: CBC, BMP 06/03/17 06:00 06/02/17 08:09 INR, PTT INR 1.16 (0.82-1.09) H 05/31/17 09:40 - ....Imaging EKG: Other (tele: NSR) Assessment/Plan ecg 05/30/17: sr, rbbb, nl intervals, no st changes cxr: mild congestion echo 05/2017: nl lv/rv, mod as (peak/mean gradients 68/36, WOO 1.1. LVOT 2.0, LVOT VTI = 39) *ECHO IMAGES REVIEWED BY DR PARISH: i believe measured LVOT (2.1cm) is erroneous , and LVOT dimension is actually 1.7-1.8cm. There is an unusually high LVOT velocity/VTI (39 cm), despite apparently normal cursor positioning on the apical 3-chamber view. Peak and mean AV gradients are 63-69/32-37 mmHg, respectively. AV VTI is 98-102 (multiple doppler envelopes traced). Estimated WOO using these numbers comes to 0.8-0.9 cm2. a/p: 72 f hx copd, afib, dm, htn, hld, venous insuff/le edema, here with ceja. sob, cp, anemia, acute diast chf: -no signs chf or acs (trop negx3) -likely sxs due to severe anemia with hgb in 5s. After prbcs pt reports feeling better, and feels she is at her copd baseline as far as nonexertional, mild breathlessness. -3/3: evidence of decompensated chf with elevated JVD on exam. CXR diffuse markings (without vasc redistribution) = ? interstitial edema. lasix 40mg IVP x 1 given. -3/: 4100 cc UOP yesterday, wt unchanged. remains with same LE edema and JVD. states she drinks a lot of water--rec 2L fluid restriction. chemistry labs still pending--will dose lasix once labs back -assess weights, labs daily aortic stenosis, moderate vs severe: -suspect severe based on phys exam (single S2, decr carotid intensity), AV gradients, and WOO 0.8-0.9 when LVOT re-measured manually by me (on multiple frames). -HOWEVER: echo was performed while pt was severely anemic (hgb 6s-7s that day, ) which often spuriously increases gradients/VTIs--while this may incr VTI in LVOT and across AV proportionally, hence leading to similar WOO estimation, cannot predict that with certainty. 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 dr garcia consulted. -Revised CV Risk Index = 1, unknown functional status -currently suspect mildly decompensated chf--optimizing this prior to surgery -suspect severe but this needs to be confirmed with repeat echo, as disc'd above. -if severe present, this will impart high risk of periop CV complications. if appears moderate, her risk will be in the intermediate range. -appreciate dr garcia note re: surgery at tertiary care center. -d/w'd dr zamarripa today: in light of chf, severe (or borderline), new DVT , hyperthyroidism in setting of pt on prior amio, agree her risk of periop CHF is high and would be ideal for her to be in a tertiary care center where her strip mine supervisor is ([facility] [place] Eliud Jones, Dr. Larios) in case of complications...he can also weigh in on amio then as well copd: -pt reports this dx, with chronic sob she attributes -stable, no signs a.e. renal insufficiency: -creat 1.5-1.6 here, no baseline data available -renal fxn remains stable -trend labs daily for now, given diuresis starting htn: -reasonably controlled -cont aldactone hyperthyroidism: -low TSH, elevated free T4 -pt on amiodarone -per hospitalist venous insuff/le edema: -worsened of late ? due to chf -diuresis as above
[2017-06-03] MEDS: AMIODARONE HCL 200 MG TABLET (FP) PO SCH (09:54)
[2017-06-03] MEDS: NYSTATIN 100,000 UNIT/GM TOPICAL CREAM 15 GM TUBE TP SCH ×2 (09:54→21:53)
[2017-06-03] MEDS: PANTOPRAZOLE SODIUM 40 MG VIAL IVPUSH SCH ×2 (09:54→21:54)
[2017-06-03] MEDS: SPIRONOLACTONE 25 MG TABLET (FP) PO SCH (09:54)
[2017-06-03] MEDS: MINERAL OIL/PET HY-PHL TOPICAL OINTMENT 454 GM JAR TP SCH ×2 (09:55→21:54)
[2017-06-03 11:13] LABS: ANION GAP 7 (8-16); BLOOD UREA NITROGEN 17 mg/dl (7-18); CALCIUM 7.5 mg/dl (8.4-10.2); CHLORIDE 106 mmol/L (98-107); CO2 28 mmol/L (22-28); CREATININE 1.4 mg/dl (0.6-1.3); GLUCOSE,RANDOM 100 mg/dl (74-106); SODIUM 141 mmol/L (136-145); TOT PROT 5.4 g/dl (6.4-8.3)
[2017-06-03 11:14] LABS: ALBUMIN 3.1 g/dl (3.5-5.0); ALK PHOS 68 U/L (32-92); BILIRUBIN,TOTAL 1.6 mg/dl (0.2-1.0); SGOT/AST 8 U/L (10-42); SGPT/ALT 11 U/L (10-40)
--- NOTE | 2017-06-03 11:31 | PN ---
<Ese Garcia - Last Filed: 06/03/17 10:55> Physical Exam: SUBJECTIVE: Patient seen and examined. She is feeling good today but is complaining of mild discomfort in left leg. She denies chest pain, SOB, palpitations. OBJECTIVE: Vital Signs Period Temp Pulse Resp BP Sys/[place] Pulse Ox Last 24 Hr 97.5 F-99.2 F 62-76 18-22 132-153/49-57 95-98 GENERAL: The patient is awake, alert, and fully oriented, in no acute distress, on NC. HEAD: Normal with no signs of trauma. EYES: extraocular movements intact, sclera anicteric, conjunctiva clear. ENT: oropharynx clear without exudates, moist mucous membranes. NECK: Trachea midline, full range of motion, supple. LUNGS: Breath sounds equal, clear to auscultation bilaterally, no wheezes, no crackles, no accessory muscle use. HEART: Regular rate and rhythm, S1, S2, 3/6 systolic murmur over right sternal border, no rub or gallop. ABDOMEN: Soft, nontender, nondistended, normoactive bowel sounds, no guarding, no rebound, no hepatosplenomegaly, no masses. EXTREMITIES: 2+ pulses in RLE, 1+ in LLE, warm, 2+ ebema in LE bilaterally, tenderness to palpation behind left knee, mild tremor in upper extremities. NEUROLOGICAL: Normal speech, no facial asymmetry, gait not observed. PSYCH: Normal mood, normal affect. SKIN: Warm, dry, normal turgor, venous stasis changes in LE B/L. Laboratory Results - last 24 hr 05/30/17 06/02/17 06/02/17 13:30 11:41 17:30 WBC RBC Hgb Hct MCV MCH MCHC RDW Plt Count MPV Neutrophils % Lymphocytes % Monocytes % Eosinophils % Basophils % POC Glucometer 146 163 TSH Free T4 Blood Type O POSITIVE Antibody Screen Negative Crossmatch See Detail 06/03/17 06/03/17 06/03/17 05:51 06:00 06:48 WBC 7.9 RBC 4.08 Hgb 10.6 L Hct 32.4 MCV 79.3 L MCH 26.0 MCHC 32.7 RDW 21.8 H Plt Count 224 MPV 8.2 Neutrophils % 81.5 Lymphocytes % 6.9 L D Monocytes % 7.7 Eosinophils % 2.9 D Basophils % 1.0 POC Glucometer 116 TSH 0.10 L Free T4 Blood Type Antibody Screen Crossmatch 06/03/17 06:48 WBC RBC Hgb Hct MCV MCH MCHC RDW Plt Count MPV Neutrophils % Lymphocytes % Monocytes % Eosinophils % Basophils % POC Glucometer TSH Free T4 2.18 H Blood Type Antibody Screen Crossmatch Active Medications Generic Name Dose Route Start Last Admin Trade Name Freq PRN Reason Stop Dose Admin Albuterol/Ipratropium 1 amp 05/30/17 18:46 06/03/17 07:47 Duoneb - NEB 1 amp Q6H PRN Administration SHORTNESS OF BREATH Amiodarone HCl 200 mg 05/31/17 10:00 06/03/17 09:54 Cordarone - PO 200 mg DAILY [facility] Administration Atorvastatin Calcium 20 mg 05/31/17 22:00 06/02/17 22:23 Lipitor - PO 20 mg HS [facility] Administration Emollient Ointment 1 applic 05/31/17 13:45 06/03/17 09:55 Aquaphor - TP 1 applic BID [facility] Administration Insulin Aspart 1 vial 05/30/17 16:30 06/03/17 06:50 Novolog Vial Sliding Scale - SQ Not Given TIDAC [facility] Protocol Nystatin 1 applic 05/31/17 12:30 06/03/17 09:54 Mycostatin Cream - TP 1 applic BID [facility] Administration Pantoprazole Sodium 40 mg 05/30/17 16:30 06/03/17 09:54 Protonix Iv IVPUSH 40 mg BID [facility] Administration Spironolactone 25 mg 05/30/17 16:30 06/03/17 09:54 Aldactone - PO 25 mg DAILY [facility] Administration ASSESSMENT/PLAN: 72 year old female with pmhx of copd (home o2 ), Afib (on xarelto at home), DMII , HTN, HLD, peripheral venous stasis, h/o DVT who presented to the ED with worsening sob, dyspnea and generalized weakness was found to have hgb of 5.3 and was admitted to telemetry for further evaluation. Severe symptomatic microcytic anemia -presented with hgb 5.3, S/P 3 units of PRBCs -Hgb stable, today 10.6, will f/u -GI consulted and according to report and recommendations high risk of bleeding from cecal mass, polyps h/o of DVT -found in in left lower extremity-common femoral vein -will evaluate for IVC filter tommorow, NPO after midnight, discussed with Dr Zhang Colon mass: -based on colonoscopy:half circumferential mass at the cecum, 2x2 mass in ascending colon, sessile polyp in transverse colon and two polyps in rectum. Biopsies were taken. -Dr Angel was consulted and transfer to tertiary care center is considered in light of severe , CHF, hyperthyroidism, high risk of bleeding Acute on chronic respiratory failure -due to anemia vs COPD exacerbation, resolved, less SOB today, on NC -Oxygen supplementation, currently on 3 L NC, saturating above 90 -Duoneb Q6H PRN -CXR: cardiomegaly and mild congestion Hyperthyroidism: -TSH 0.1 -free T4 2.18 -free T3 pending -will f/u Endocrinology recommendations JOHNY on CKD -resolving, BUM 20 and Cr 1.2 yesterday, today pending -monitor A.FIB -rate controlled -cardiology consulted continue current management -cont Amiodarone 200 mg po daily, reconsider change as outpatient due to hyperthyroidism -cont to hold xarelto due to possible bleeding -cardiac monitoring Aortic stenosis: -moderate or severe, -will repeat ECHo according to Dr Ayers recommendations DMII -Hold metformin -ISS TIDAC -BGM TIDAC -Diabetic diet Morbid obesity BMI 53.7 counseled about importance of wt loss and healthy balanced diet HTN lasix 20 mg PRN, will consider after getting lab work back continue Spirolactone 25 mg po daily HLD Lipitor 20 mg po daily FEN: no fluids/no changes/diabetic, NPO after midnight DVT PPX: scds GI PPX: protonix 40 mg IV BID Disposition: telemetry Problem List - Problems (1) Hyperthyroidism Code(s): E05.90 - THYROTOXICOSIS, UNSP WITHOUT THYROTOXIC CRISIS OR STORM (2) Anemia Code(s): D64.9 - ANEMIA, UNSPECIFIED QualifierTitle: Iron deficiency anemia type: chronic blood loss (3) COPD (chronic obstructive pulmonary disease) Code(s): J44.9 - CHRONIC OBSTRUCTIVE PULMONARY DISEASE, UNSPECIFIED (4) Cecum mass Code(s): K63.9 - DISEASE OF INTESTINE, UNSPECIFIED (5) Colonic mass Code(s): K63.9 - DISEASE OF INTESTINE, UNSPECIFIED (6) Morbid obesity due to excess calories Code(s): E66.01 - MORBID (SEVERE) OBESITY DUE TO EXCESS CALORIES Visit type - Emergency Visit Emergency Visit: Yes ED Registration Date: 05/30/17 Care time: The patient presented to the Emergency Department on the above date and was hospitalized for further evaluation of their emergent condition. - New Patient This patient is new to me today: Yes Date on this admission: 06/03/17 - Critical Care Critical Care patient: No - Discharge Referral Referred to [facility] Med P.C[facility] No <Lex Vargas - Last Filed: 06/03/17 19:02> Physical Exam: Patient seen and examined Vital Signs Temperature 98.7 F 06/03/17 17:00 Pulse Rate 65 06/03/17 17:00 Respiratory Rate 18 06/03/17 17:00 Blood Pressure 125/40 06/03/17 17:00 O2 Sat by Pulse Oximetry (%) 98 06/03/17 16:58 CBCD WBC 7.9 K/mm3 (4.0-10.0) 06/03/17 06:00 RBC 4.08 M/mm3 (3.60-5.2) 06/03/17 06:00 Hgb 10.6 GM/dL (10.7-15.3) L 06/03/17 06:00 Hct 32.4 % (32.4-45.2) 06/03/17 06:00 MCV 79.3 fl (80-96) L 06/03/17 06:00 MCHC 32.7 g/dl (32.0-36.0) 06/03/17 06:00 RDW 21.8 % (11.6-15.6) H 06/03/17 06:00 Plt Count 224 K/MM3 (134-434) 06/03/17 06:00 MPV 8.2 fl (7.5-11.1) 06/03/17 06:00 CMP Sodium 141 mmol/L (136-145) 06/03/17 06:48 Potassium 4.0 mmol/L (3.5-5.1) 06/03/17 06:48 Chloride 106 mmol/L (98-107) 06/03/17 06:48 Carbon Dioxide 28 mmol/L (22-28) 06/03/17 06:48 Anion Gap 7 (8-16) L 06/03/17 06:48 BUN 17 mg/dl (7-18) 06/03/17 06:48 Creatinine 1.4 mg/dl (0.6-1.3) H 06/03/17 06:48 Creat Clearance w eGFR 36.76 (>60) 06/03/17 06:48 Random Glucose 100 mg/dl (74-106) 06/03/17 06:48 Calcium 7.5 mg/dl (8.4-10.2) L 06/03/17 06:48 Total Bilirubin 1.6 mg/dl (0.2-1.0) H 06/03/17 06:48 AST 8 U/L (10-42) L 06/03/17 06:48 ALT 11 U/L (10-40) 06/03/17 06:48 Alkaline Phosphatase 68 U/L (32-92) 06/03/17 06:48 Total Protein 5.4 g/dl (6.4-8.3) L 06/03/17 06:48 Albumin 3.1 g/dl (3.5-5.0) L 06/03/17 06:48 CARDIAC ENZYMES Creatine Kinase 28 IU/L (26-192) 05/30/17 13:10 Troponin I 0.02 ng/ml (0.00-0.05) 05/31/17 00:40 Current Medications Generic Name Dose Route Start Last Admin Trade Name Freq PRN Reason Stop Dose Admin Albuterol/Ipratropium 1 amp 05/30/17 18:46 06/03/17 07:47 Duoneb - NEB 1 amp Q6H PRN Administration SHORTNESS OF BREATH Amiodarone HCl 200 mg 05/31/17 10:00 06/03/17 09:54 Cordarone - PO 200 mg DAILY [facility] Administration Atorvastatin Calcium 20 mg 05/31/17 22:00 06/02/17 22:23 Lipitor - PO 20 mg HS [facility]IA Administration Emollient Ointment 1 applic 05/31/17 13:45 06/03/17 09:55 Aquaphor - TP 1 applic BID [facility] Administration Insulin Aspart 1 vial 05/30/17 16:30 06/03/17 17:37 Novolog Vial Sliding Scale - SQ Not Given TIDAC [facility] Protocol Nystatin 1 applic 05/31/17 12:30 06/03/17 09:54 Mycostatin Cream - TP 1 applic BID [facility] Administration Pantoprazole Sodium 40 mg 05/30/17 16:30 06/03/17 09:54 Protonix Iv IVPUSH 40 mg BID [facility] Administration Spironolactone 25 mg 05/30/17 16:30 06/03/17 09:54 Aldactone - PO 25 mg DAILY [facility] Administration Home Medications Medication Instructions Recorded Amiodarone HCl 200 mg PO DAILY 05/30/17 Furosemide [Lasix] 20 mg PO TUTH 05/30/17 Metformin HCl 500 mg PO BID 05/30/17 Rivaroxaban [Xarelto -] 20 mg PO DAILY 05/30/17 Spironolactone 25 mg PO DAILY 05/30/17 NPO after midnight for IVC filter with
[2017-06-03] MEDS ORDERED: FUROSEMIDE 40 MG/4 ML INJECTABLE VIAL IVPUSH ONE ×2 (11:56→17:00)
[2017-06-03] MEDS ORDERED: POTASSIUM CHLORIDE ORAL LIQUID 20 MEQ/15 ML PO ONE (12:15)
[2017-06-03] MEDS ORDERED: BISACODYL 5 MG TABLET.DR (FP) PO ONE (14:00)
[2017-06-03] MEDS: ATORVASTATIN CA 20 MG TABLET (FP) PO SCH (21:49)
[2017-06-04] MEDS: INSULIN SLIDING SCALE (NOVOLOG) 1 VIAL SQ SCH ×3 (07:29→18:56)
[2017-06-04 08:37] LABS: ALK PHOS 68 U/L (45-117); ANION GAP 9 (8-16); BILIRUBIN,TOTAL 1.7 mg/dL (0.2-1.0); BLOOD UREA NITROGEN 18 mg/dL (7-18); CALCIUM 7.6 mg/dL (8.5-10.1); CHLORIDE 105 mmol/L (98-107); CO2 28 mmol/L (21-32); CREATININE 1.5 mg/dL (0.55-1.02); GLUCOSE,RANDOM 101 mg/dL (74-106); POTASSIUM 3.8 mmol/L (3.5-5.1); SGOT/AST 9 U/L (15-37); SGPT/ALT 10 U/L (12-78); SODIUM 142 mmol/L (136-145); TOT PROT 5.4 g/dl (6.4-8.2)
[2017-06-04 08:43] LABS: EOS % 3.4 % (0-4.5); HEMATOCRIT 33.3 % (32.4-45.2); HEMOGLOBIN 10.6 GM/dL (10.7-15.3); LYMPH % 7.8 % (8-40); MCH 25.6 pg (25.7-33.7); MCHC 31.9 g/dl (32.0-36.0); MEAN CELL VOLUME 80.2 fl (80-96); MEAN PLT VOLUME 8.3 fl (7.5-11.1); MONO % 8.4 % (3.8-10.2); NEUT % 79.4 % (42.8-82.8); PLATELET COUNT 221 K/MM3 (134-434); RBC 4.15 M/mm3 (3.60-5.2); RDW 23.2 % (11.6-15.6); WHITE BLOOD COUNT 7.6 K/mm3 (4.0-10.0)
--- NOTE | 2017-06-04 08:49 | PN ---
Progress Note (short form) - Note Progress Note: Vascular Surgery Pt with DVT in left leg. On xarelto GI rec that pt is high risk for bleeding from cecal polyps Pt had hemoglobin of 5.3 and recieved three units of PRBC. Will place IVC filter because pt cannot be anticoagulated. Gerson quezada DO
[2017-06-04] MEDS: NYSTATIN 100,000 UNIT/GM TOPICAL CREAM 15 GM TUBE TP SCH ×2 (09:01→22:14)
[2017-06-04] MEDS: SPIRONOLACTONE 25 MG TABLET (FP) PO SCH (09:01)
[2017-06-04] MEDS: MINERAL OIL/PET HY-PHL TOPICAL OINTMENT 454 GM JAR TP SCH ×2 (09:01→22:14)
[2017-06-04] MEDS: AMIODARONE HCL 200 MG TABLET (FP) PO SCH (09:02)
--- NOTE | 2017-06-04 09:30 | PN ---
Progress Note, Physician - Current Medication List Current Medications: Active Medications Albuterol/Ipratropium (Duoneb -) 1 amp NEB Q6H PRN PRN Reason: SHORTNESS OF BREATH Last Admin: 06/03/17 07:47 Dose: 1 amp Amiodarone HCl (Cordarone -) 200 mg PO DAILY [facility] Last Admin: 06/04/17 09:02 Dose: Not Given Atorvastatin Calcium (Lipitor -) 20 mg PO HS [facility] Last Admin: 06/03/17 21:49 Dose: 20 mg Emollient Ointment (Aquaphor -) 1 applic TP BID [facility] Last Admin: 06/04/17 09:01 Dose: 1 applic Insulin Aspart (Novolog Vial Sliding Scale -) 1 vial SQ TIDAC [facility] PRN Reason: Protocol Last Admin: 06/04/17 07:29 Dose: Not Given Nystatin (Mycostatin Cream -) 1 applic TP BID [facility] Last Admin: 06/04/17 09:01 Dose: 1 applic Pantoprazole Sodium (Protonix Iv) 40 mg IVPUSH BID [facility] Last Admin: 06/03/17 21:54 Dose: 40 mg Spironolactone (Aldactone -) 25 mg PO DAILY [facility] Last Admin: 06/04/17 09:01 Dose: Not Given - Objective Vital Signs: Vital Signs Temperature 97.6 F 06/04/17 06:00 Pulse Rate 70 06/04/17 06:00 Respiratory Rate 20 06/04/17 06:00 Blood Pressure 128/60 06/04/17 06:00 O2 Sat by Pulse Oximetry (%) 96 06/03/17 21:00 Labs: CBC, BMP 06/04/17 06:45 06/04/17 06:45 INR, PTT INR 1.16 (0.82-1.09) H 05/31/17 09:40 Assessment/Plan ecg 05/30/17: sr, rbbb, nl intervals, no st changes cxr: mild congestion echo 05/2017: nl lv/rv, mod as (peak/mean gradients 68/36, WOO 1.1. LVOT 2.0, LVOT VTI = 39) *ECHO IMAGES REVIEWED BY DR PARISH: i believe measured LVOT (2.1cm) is erroneous , and LVOT dimension is actually 1.7-1.8cm. There is an unusually high LVOT velocity/VTI (39 cm), despite apparently normal cursor positioning on the apical 3-chamber view. Peak and mean AV gradients are 63-69/32-37 mmHg, respectively. AV VTI is 98-102 (multiple doppler envelopes traced). Estimated WOO using these numbers comes to 0.8-0.9 cm2. a/p: 72 f hx copd, afib, dm, htn, hld, venous insuff/le edema, here with ceja. sob, cp, anemia, acute diast chf: -no signs chf or acs (trop negx3) -likely sxs due to severe anemia with hgb in 5s. After prbcs pt reports feeling better, and feels she is at her copd baseline as far as nonexertional, mild breathlessness. -06/02: evidence of decompensated chf with elevated JVD on exam. CXR diffuse markings (without vasc redistribution) = ? interstitial edema. lasix 40mg IVP x 1 given. -06/03: 4100 cc UOP yesterday, wt unchanged. remains with same LE edema and JVD. states she drinks a lot of water--rec 2L fluid restriction. will give lasix 40 iv bid x 2 doses. -06/04: wts here inaccurate. 5L UOP yest with lasix 40 iv bid. bun/creat relatively stable. -assess weights, labs daily aortic stenosis, moderate vs severe: -suspect severe based on phys exam (single S2, decr carotid intensity), AV gradients, and WOO 0.8-0.9 when LVOT re-measured manually by me (on multiple frames). -HOWEVER: echo was performed while pt was severely anemic (hgb 6s-7s that day, ) which often spuriously increases gradients/VTIs--while this may incr VTI in LVOT and across AV proportionally, hence leading to similar WOO estimation, cannot predict that with certainty. 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 dr garcia consulted. -Revised CV Risk Index = 1, unknown functional status -currently suspect mildly decompensated chf--optimizing this prior to surgery -suspect severe but this needs to be confirmed with repeat echo, as disc'd above. -if severe present, this will impart high risk of periop CV complications. if appears moderate, her risk will be in the intermediate range. -appreciate dr garcia note re: surgery at tertiary care center. 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 Larios) in case of complications...he can also weigh in on amio then as well copd: -pt reports this dx, with chronic sob she attributes -stable, no signs a.e. renal insufficiency: -creat 1.5-1.6 here, no baseline data available -renal fxn remains stable -trend labs daily for now, given diuresis starting htn: -reasonably controlled -cont aldactone hyperthyroidism: -low TSH, elevated free T4 -pt on amiodarone -per hospitalist venous insuff/le edema: -worsened of late ? due to chf -diuresis as above
[2017-06-04] MEDS: PANTOPRAZOLE SODIUM 40 MG VIAL IVPUSH SCH ×2 (09:50→22:13)
--- NOTE | 2017-06-04 09:59 | PN ---
Progress Note, Physician History of Present Illness: 72 yo female PMH COPD(home oxygen, concentrator), Afib (on xarelto), DM type 2 ( on metformin) , HTN, morbid obesity, HLD, peripheral venous stasis, h/o DVT who presented to the ED with worsening sob, dyspnea and generalized weakness and was admitted to telemetry for further evaluation. patient reports generalized weakness since April 2017. She had an IVC filter placed today, Has been evaluated by cardiology who feels she should be transferred for optimization. - Current Medication List Current Medications: Active Medications Albuterol/Ipratropium (Duoneb -) 1 amp NEB Q6H PRN PRN Reason: SHORTNESS OF BREATH Last Admin: 06/03/17 07:47 Dose: 1 amp Amiodarone HCl (Cordarone -) 200 mg PO DAILY [facility] Last Admin: 06/04/17 09:02 Dose: Not Given Atorvastatin Calcium (Lipitor -) 20 mg PO HS [facility] Last Admin: 06/03/17 21:49 Dose: 20 mg Emollient Ointment (Aquaphor -) 1 applic TP BID [facility] Last Admin: 06/04/17 09:01 Dose: 1 applic Insulin Aspart (Novolog Vial Sliding Scale -) 1 vial SQ TIDAC [facility] PRN Reason: Protocol Last Admin: 06/04/17 07:29 Dose: Not Given Nystatin (Mycostatin Cream -) 1 applic TP BID [facility] Last Admin: 06/04/17 09:01 Dose: 1 applic Pantoprazole Sodium (Protonix Iv) 40 mg IVPUSH BID [facility] Last Admin: 06/04/17 09:50 Dose: Not Given Spironolactone (Aldactone -) 25 mg PO DAILY [facility] Last Admin: 06/04/17 09:01 Dose: Not Given - Objective Vital Signs: Vital Signs Temperature 97.6 F 06/04/17 06:00 Pulse Rate 70 06/04/17 06:00 Respiratory Rate 20 06/04/17 06:00 Blood Pressure 128/60 06/04/17 06:00 O2 Sat by Pulse Oximetry (%) 96 06/03/17 21:00 Vital Signs Period Temp Pulse Resp BP Sys/[place] Pulse Ox Last 24 Hr 97.6 F-98.7 F 65-71 18-20 118-153/40-93 96-98 Constitutional: Yes: No Distress, Calm, Obese Eyes: Yes: Conjunctiva Clear, EOM Intact HENT: Yes: Atraumatic, Normocephalic Neck: Yes: Supple, Trachea Midline Cardiovascular: Yes: Regular Rate and Rhythm, Murmur, S1 Respiratory: Yes: Regular, CTA Bilaterally, On Nasal O2 Gastrointestinal: Yes: Normal Bowel Sounds, Soft, Abdomen, Obese. No: Distention, Tenderness Genitourinary: No: CVA Tenderness - Left, CVA Tenderness - Right Extremities: No: Cool, Cyanosis Integumentary: No: Jaundice, Rash Neurological: Yes: Alert, Oriented Psychiatric: Yes: Alert, Oriented Labs: CBC, BMP 06/04/17 06:45 06/04/17 06:45 INR, PTT INR 1.16 (0.82-1.09) H 05/31/17 09:40 Problem List - Problems (1) Colon adenocarcinoma Assessment/Plan: 72 yo female MMP with chronic blood loss anemia, weakness, and a newly diagnosed invasive adenocarcinoma in the ascending colon. She is ammenable to the idea of having surgery if it is indicated but expressed concern about her fitness for such a procedure. Cardiology evaluation indicated there intention to have her transferred to [facility] for cardiac optimization given, high perioperative risk for an event based on severe and chf. She had an acute left common femoral DVT, and an IVC filter was placed today by Dr. Zhang. Preoperative optimization Appreciate and agree with Cardiology and Pulmonary reccomendations CT scan Chest/ Abdomen/ Pelvis with IV and PO contrast Medical oncology for staging workup Nutritional optimization Will discuss with primary team Code(s): C18.9 - MALIGNANT NEOPLASM OF COLON, UNSPECIFIED (2) Cecum mass Code(s): K63.9 - DISEASE OF INTESTINE, UNSPECIFIED (3) Anemia Code(s): D64.9 - ANEMIA, UNSPECIFIED Qualifiers: Iron deficiency anemia type: chronic blood loss (4) COPD (chronic obstructive pulmonary disease) Code(s): J44.9 - CHRONIC OBSTRUCTIVE PULMONARY DISEASE, UNSPECIFIED (5) Morbid obesity due to excess calories Code(s): E66.01 - MORBID (SEVERE) OBESITY DUE TO EXCESS CALORIES
[2017-06-04] MEDS ORDERED: MIDAZOLAM HCL 2 MG/2 ML SINGLE DOSE VIAL ONE (10:01)
--- NOTE | 2017-06-04 10:11 | PN ---
Progress Note, Physician History of Present Illness: LLE DVT. EGD biopsies pathology noted. - Current Medication List Current Medications: Active Medications Albuterol/Ipratropium (Duoneb -) 1 amp NEB Q6H PRN PRN Reason: SHORTNESS OF BREATH Last Admin: 06/03/17 07:47 Dose: 1 amp Amiodarone HCl (Cordarone -) 200 mg PO DAILY [facility] Last Admin: 06/04/17 09:02 Dose: Not Given Atorvastatin Calcium (Lipitor -) 20 mg PO HS [facility] Last Admin: 06/03/17 21:49 Dose: 20 mg Emollient Ointment (Aquaphor -) 1 applic TP BID [facility] Last Admin: 06/04/17 09:01 Dose: 1 applic Insulin Aspart (Novolog Vial Sliding Scale -) 1 vial SQ TIDAC [facility] PRN Reason: Protocol Last Admin: 06/04/17 07:29 Dose: Not Given Nystatin (Mycostatin Cream -) 1 applic TP BID [facility] Last Admin: 06/04/17 09:01 Dose: 1 applic Pantoprazole Sodium (Protonix Iv) 40 mg IVPUSH BID [facility] Last Admin: 06/04/17 09:50 Dose: Not Given Spironolactone (Aldactone -) 25 mg PO DAILY [facility] Last Admin: 06/04/17 09:01 Dose: Not Given - Objective Vital Signs: Vital Signs Temperature 97.6 F 06/04/17 06:00 Pulse Rate 70 06/04/17 06:00 Respiratory Rate 20 06/04/17 06:00 Blood Pressure 128/60 06/04/17 06:00 O2 Sat by Pulse Oximetry (%) 96 06/03/17 21:00 Labs: CBC, BMP 06/04/17 06:45 06/04/17 06:45 INR, PTT INR 1.16 (0.82-1.09) H 05/31/17 09:40 CBCD WBC 7.6 K/mm3 (4.0-10.0) 06/04/17 06:45 RBC 4.15 M/mm3 (3.60-5.2) 06/04/17 06:45 Hgb 10.6 GM/dL (10.7-15.3) L 06/04/17 06:45 Hct 33.3 % (32.4-45.2) 06/04/17 06:45 MCV 80.2 fl (80-96) 06/04/17 06:45 MCHC 31.9 g/dl (32.0-36.0) L 06/04/17 06:45 RDW 23.2 % (11.6-15.6) H 06/04/17 06:45 Plt Count 221 K/MM3 (134-434) 06/04/17 06:45 MPV 8.3 fl (7.5-11.1) 06/04/17 06:45 CMP Sodium 142 mmol/L (136-145) 06/04/17 06:45 Potassium 3.8 mmol/L (3.5-5.1) 06/04/17 06:45 Chloride 105 mmol/L (98-107) 06/04/17 06:45 Carbon Dioxide 28 mmol/L (21-32) 06/04/17 06:45 Anion Gap 9 (8-16) 06/04/17 06:45 BUN 18 mg/dL (7-18) 06/04/17 06:45 Creatinine 1.5 mg/dL (0.55-1.02) H 06/04/17 06:45 Creat Clearance w eGFR 33.94 (>60) 06/04/17 06:45 Calcium 7.6 mg/dL (8.5-10.1) L 06/04/17 06:45 Total Bilirubin 1.7 mg/dL (0.2-1.0) H 06/04/17 06:45 AST 9 U/L (15-37) L 06/04/17 06:45 ALT 10 U/L (12-78) L 06/04/17 06:45 Alkaline Phosphatase 68 U/L (45-117) 06/04/17 06:45 Total Protein 5.4 g/dl (6.4-8.2) L 06/04/17 06:45 Albumin 3.0 g/dl (3.4-5.0) L 06/04/17 06:45 Problem List - Problems (1) Colonic mass Code(s): K63.9 - DISEASE OF INTESTINE, UNSPECIFIED (2) Cecum mass Code(s): K63.9 - DISEASE OF INTESTINE, UNSPECIFIED Assessment/Plan Await colono masses pathology, CT results. For IVC filter this am
[2017-06-04] MEDS ORDERED: LIDOCAINE HCL 1%, 10 MG/ML (20ML VIAL) ONE (10:22)
[2017-06-04] MEDS ORDERED: HEPARIN NA (PORCINE) 5,000 UNITS/ML 1ML VIAL ONE (10:22)
[2017-06-04] MEDS ORDERED: PROPOFOL 20 ML ONE ×2 (10:26)
[2017-06-04] MEDS ORDERED: ePHEDrine SULFATE 50 MG/1 ML AMPULE ONE (10:26)
[2017-06-04] MEDS ORDERED: SUCCINYLCHOLINE CHLORIDE 200 MG/10 ML VIAL ONE (10:26)
[2017-06-04] MEDS ORDERED: ceFAZolin SODIUM 1 GM VIAL ONE (10:51)
[2017-06-04] MEDS ORDERED: ceFAZolin SODIUM 1 GM VIAL IVPB ONE (10:53)
[2017-06-04] MEDS ORDERED: LIDOCAINE HCL 1%, 10 MG/ML (20ML VIAL) PNB ONE (10:59)
--- NOTE | 2017-06-04 11:03 | PATH ---
Surgical Pathology Report Patient Name: JOHN PAUL HOYOS [facility]. Rec. #: [id number] /Age/Gender: 1945 (Age: 72) / F Account: [id number] Location: 4 W TELEMETRY U Taken: 06/01/2017 Received: 06/01/2017 Reported: 06/04/2017 Physicians: Flash Osei M.D. Specimen(s) Received A: POLYP TRANSVERSE COLON B: BX CECAL MASS C: ASCENDING COLON POLYP D: RECTAL POLYP Clinical History Preoperative diagnosis: Symptomatic anemia Postoperative diagnosis: Colon cancer Final Diagnosis A. TRANSVERSE COLON, POLYP, BIOPSY: TUBULAR ADENOMA. B. CECUM, MASS, BIOPSY: VILLOUS ADENOMA. C. ASCENDING COLON, MASS, BIOPSY: INVASIVE ADENOCARCINOMA, MODERATELY DIFFERENTIATED. D. RECTUM, POLYPS, BIOPSY: HYPERPLASTIC POLYP(S). Comment: Additional studies for Mismatch repair proteins (MMR) are pending and will be reported as an addendum. Office of Dr. Koo informed that significant findings will be faxed ([employer]). Electronically Signed Sindhu Bazan M.D. 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 BRAF studies are pending. Findings will be reported as an addendum. Sindhu Bazan M.D. Addendum Reported: 06/11/2017 Addendum Diagnosis Molecular Pathology Report received from [facility] in [place], [place] ([id number]) shows the following: BRAF MUTATION ANALYSIS RESULTS: A nucleotide change encoding the V600 mutation was detected. Nucleotide change: . . .GTG>GAG Amino Acid change: . . 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 Results should be interpreted in conjunction with clinical and other laboratory findings for the most accurate interpretation. Comment: Somatic mutations in the BRAF oncogene are frequently found in human cancers. They are common in melanomas, colorectal cancer, lung cancer, ovary cancer, and thyroid gland cancer. Over 90% of mutations are the V600E mutation. Recent studies have shown that metastatic colorectal cancer patients with this BRAF mutation do not have a strong response to anti-EGFR therapies such as cetuximab and panitumumab. In conjunction with the MisMatch Repair Protein analysis by immunohistochemistry, the presence of a BRAF V600E mutation suggests that the tumor is sporadic and germline evaluation is probably not indicated Max Bell M.D. Gross Description A. Received in formalin, labeled "biopsy polyp transverse colon" is a aguayo, irregular portion of soft tissue measuring 0.3 cm. in greatest dimension. The specimen is submitted in toto in one cassette. B. Received in formalin labeled "biopsy cecal mass," is a 0.6 x 0.4 x 0.2 cm aggregate of aguayo soft tissue fragments. The formalin and filtered and the specimen is entirely submitted in one cassette. C. Received in formalin, labeled "biopsy ascending colon mass" are 5 aguayo, irregular portions of soft tissue ranging from 0.1-0.3 cm. in greatest dimension. The specimens are submitted in toto in one cassette. D. Received in formalin, labeled "biopsy rectal polyps" are 2 aguayo, irregular portions of soft tissue measuring 0.3 and 0.4 cm. in greatest dimension. The specimens are submitted in toto in one cassette. 06/01/201706/01/2017
--- NOTE | 2017-06-04 11:16 | OP ---
Operative Note - Note: Operative Date: 06/04/17 Pre-Operative Diagnosis: DVT left leg, GI bleeding secondary to colon mass Operation: insertion of ivc filter with venogram Post-Operative Diagnosis: Same as Pre-op Surgeon: Gerson Zhang Anesthesia: Fractional Estimated Blood Loss (mls): 10 Operative Report Dictated: Yes
[2017-06-04] MEDS ORDERED: ACETAMINOPHEN 1000 MG/100 ML VIAL (NON FORMULARY) IVPB ONE (11:29)
[2017-06-04] MEDS ORDERED: ONDANSETRON 4 MG/2 ML VIAL IVPUSH PRN (11:31)
--- NOTE | 2017-06-04 11:32 | PN ---
Progress Note (short form) - Note Progress Note: Pathology reviewed. Problem List - Problems (1) Colonic mass Code(s): K63.9 - DISEASE OF INTESTINE, UNSPECIFIED (2) Cecum mass Code(s): K63.9 - DISEASE OF INTESTINE, UNSPECIFIED
[2017-06-04] MEDS ORDERED: ACETAMINOPHEN INJECTION 100 ML IVPB ONE (11:38)
[2017-06-04] MEDS ORDERED: LACTATED RINGERS SOLUTION 1,000 ML IV SCH (11:45)
[2017-06-04] MEDS: ALBUTEROL SO4 2.5/IPRATROPIUM 0.5 INH SOL 3 ML VIAL.NEB. NEB PRN ×2 (14:27→20:30)
--- NOTE | 2017-06-04 15:00 | PN ---
Teaching Attending Note Name of Resident: Taurus Anderson ATTENDING PHYSICIAN STATEMENT I saw and evaluated the patient. I reviewed the resident's note and discussed the case with the resident. I agree with the resident's findings and plan as documented. SUBJECTIVE: Patient is comfortable with no acute distress. No further bleeding. Feels upset that she has colonic mass, tearful. OBJECTIVE: Vital Signs Temperature 98.3 F 06/04/17 12:15 Pulse Rate 64 06/04/17 12:15 Respiratory Rate 17 06/04/17 12:15 Blood Pressure 123/39 06/04/17 12:15 O2 Sat by Pulse Oximetry (%) 95 06/04/17 12:15 CBCD WBC 7.6 K/mm3 (4.0-10.0) 06/04/17 06:45 RBC 4.15 M/mm3 (3.60-5.2) 06/04/17 06:45 Hgb 10.6 GM/dL (10.7-15.3) L 06/04/17 06:45 Hct 33.3 % (32.4-45.2) 06/04/17 06:45 MCV 80.2 fl (80-96) 06/04/17 06:45 MCHC 31.9 g/dl (32.0-36.0) L 06/04/17 06:45 RDW 23.2 % (11.6-15.6) H 06/04/17 06:45 Plt Count 221 K/MM3 (134-434) 06/04/17 06:45 MPV 8.3 fl (7.5-11.1) 06/04/17 06:45 CMP Sodium 142 mmol/L (136-145) 06/04/17 06:45 Potassium 3.8 mmol/L (3.5-5.1) 06/04/17 06:45 Chloride 105 mmol/L (98-107) 06/04/17 06:45 Carbon Dioxide 28 mmol/L (21-32) 06/04/17 06:45 Anion Gap 9 (8-16) 06/04/17 06:45 BUN 18 mg/dL (7-18) 06/04/17 06:45 Creatinine 1.5 mg/dL (0.55-1.02) H 06/04/17 06:45 Creat Clearance w eGFR 33.94 (>60) 06/04/17 06:45 Random Glucose 101 mg/dL (74-106) 06/04/17 06:45 Calcium 7.6 mg/dL (8.5-10.1) L 06/04/17 06:45 Total Bilirubin 1.7 mg/dL (0.2-1.0) H 06/04/17 06:45 AST 9 U/L (15-37) L 06/04/17 06:45 ALT 10 U/L (12-78) L 06/04/17 06:45 Alkaline Phosphatase 68 U/L (45-117) 06/04/17 06:45 Total Protein 5.4 g/dl (6.4-8.2) L 06/04/17 06:45 Albumin 3.0 g/dl (3.4-5.0) L 06/04/17 06:45 CARDIAC ENZYMES Creatine Kinase 28 IU/L (26-192) 05/30/17 13:10 Troponin I 0.02 ng/ml (0.00-0.05) 05/31/17 00:40 Current Medications Generic Name Dose Route Start Last Admin Trade Name Freq PRN Reason Stop Dose Admin Albuterol/Ipratropium 1 amp 06/04/17 11:50 06/04/17 14:27 Duoneb - NEB 1 amp Q6H PRN Administration SHORTNESS OF BREATH Amiodarone HCl 200 mg 06/05/17 10:00 Cordarone - PO DAILY [facility] Atorvastatin Calcium 20 mg 06/04/17 22:00 Lipitor - PO HS [facility] Emollient Ointment 1 applic 06/04/17 22:00 Aquaphor - TP BID [facility] Lactated Ringer's 1,000 mls @ 125 mls/hr 06/04/17 11:45 Lactated Ringers Solution IV ASDIR [facility] Insulin Aspart 1 vial 06/04/17 16:30 Novolog Vial Sliding Scale - SQ TIDAC [facility] Protocol Nystatin 1 applic 06/04/17 22:00 Mycostatin Cream - TP BID [facility] Ondansetron HCl 4 mg 06/04/17 11:31 Zofran Injection IVPUSH Q6H PRN NAUSEA AND/OR VOMITING Pantoprazole Sodium 40 mg 06/04/17 22:00 Protonix Iv IVPUSH BID [facility] Spironolactone 25 mg 06/05/17 10:00 Aldactone - PO DAILY [facility] Home Medications Medication Instructions Recorded Amiodarone HCl 200 mg PO DAILY 05/30/17 Furosemide [Lasix] 20 mg PO TUTH 05/30/17 Metformin HCl 500 mg PO BID 05/30/17 Rivaroxaban [Xarelto -] 20 mg PO DAILY 05/30/17 Spironolactone 25 mg PO DAILY 05/30/17 PE: per resident's note ECHO: Moderate , MILD AR, ejf 59% cxr: MILD CONGESTION ASSESSMENT AND PLAN: Patient is a 72 yo Female with h/o a-fib on xarelto, chf and COPD admitted to telemetry for having SOB and was found to have hemoglobin of 5.3. # Acute DVT of Left common femoral vein: s/p Left LE IVC filter today BY Dr. Zhang( vASCULAR), since patient can't be anticoagulated with Xarelto anymore since presented with severe bleed with hgb of 5.3, and per discussion with GI , patient can't be anticoagulated. off Xarelto. # Acute severe anemia due to acute blood loss , S/P 2 UNIT OF BLOOD TRANSFUSION hemoglobin 5.3-->7.7-->10.8-->10.6 now , Gi AND CARDIO ARE ON THE CASE. s/p Colonoscopy: positive for a mass of 2x2 cm a newly discovered cecum and ascending colon mass on lower endoscopy.Bx rESULT: TUBULAR adenoma, CECUM MASS; VILLOUS ADENOMA; ASCENDING COLON MASSIVE ADENO CA MODERATELy DIFFERENTIATED, LYMPHATIC POLYP. # Acute severe microcytic anemia STABLE NOW s/p 2 units of PRBC, hemoglobin is 7.7-->10.8--10.6 today # Hx of COPD off Bipap now , patient is at her baseline, continue NC # Afib rate controlled OFF Xarelto since was found to have low hemoglobin , and is not a good candidate for Xarelto since has a GI bleed and was found to have ;discussed with GI, continue Amiodarone , TSH level is low, and FT4 is elevated ; Hyperthyroidism , repeat level is the same will get endocrine involved if patient does not get transferred to tertiary care.echo ordered for further cardiac evaluation,will follow # Hx of DVT s/o IVC filter on the left side since can't be anticoagulated , off Xarelto # T2DM on Metformin hold it for now, sliding scale with coverage continue. # ARF creatinine improving 1.5 today due to acute blood loss, continue to hold Metformin, s/p transfusion , repeat H/H, monitor # Morbid Obesity DVT px: Off Xarelto, continue to hold since patient has GI bleed.
--- NOTE | 2017-06-04 16:07 | PN ---
Physical Exam: SUBJECTIVE: Patient seen and examined at bedside. no acute events over night . no fever, chills , denies any chest pain or abdominal pain. NPO since mid night for IVC filter today.leg swelling still the same OBJECTIVE: Vital Signs Period Temp Pulse Resp BP Sys/[place] Pulse Ox Last 24 Hr 97.6 F-98.7 F 62-73 16-24 118-160/39-93 93-98 GENERAL: The patient is awake, alert, and fully oriented, in no acute distress. HEAD: Normal with no signs of trauma. EYES: sclera anicteric, conjunctiva clear. ENT: dry mucous membranes. NECK: supple.+ JVD LUNGS: Breath sounds equal, clear to auscultation bilaterally, no wheezes, no crackles, no accessory muscle use. HEART: Regular rate and rhythm, S1, S2 3/6 systolic murmur LUSB , no rub or gallop. ABDOMEN: Obese Soft, nontender, nondistended, normoactive bowel sounds, no guarding, no rebound. EXTREMITIES: 2+ pulses, warm, well-perfused,+2 edema with peripheral venous changes and lymph edema. NEUROLOGICAL: NO focal deficit. Normal speech, gait not observed. PSYCH: Normal mood, normal affect. SKIN: Warm, dry,erythematous rash beneath the breast Laboratory Results - last 24 hr 05/30/17 06/03/17 06/04/17 13:30 17:31 05:45 WBC RBC Hgb Hct MCV MCH MCHC RDW Plt Count MPV Neutrophils % Lymphocytes % Monocytes % Eosinophils % Basophils % Sodium Potassium Chloride Carbon Dioxide Anion Gap BUN Creatinine Creat Clearance w eGFR POC Glucometer 91 110 Random Glucose Calcium Total Bilirubin AST ALT Alkaline Phosphatase Total Protein Albumin Blood Type O POSITIVE Antibody Screen Negative Crossmatch See Detail 06/04/17 06/04/17 06:45 06:45 WBC 7.6 RBC 4.15 Hgb 10.6 L Hct 33.3 MCV 80.2 MCH 25.6 L MCHC 31.9 L RDW 23.2 H Plt Count 221 MPV 8.3 Neutrophils % 79.4 Lymphocytes % 7.8 L Monocytes % 8.4 Eosinophils % 3.4 Basophils % 1.0 Sodium 142 Potassium 3.8 Chloride 105 Carbon Dioxide 28 Anion Gap 9 BUN 18 Creatinine 1.5 H Creat Clearance w eGFR 33.94 POC Glucometer Random Glucose 101 Calcium 7.6 L Total Bilirubin 1.7 H AST 9 L ALT 10 L Alkaline Phosphatase 68 Total Protein 5.4 L Albumin 3.0 L Blood Type Antibody Screen Crossmatch Active Medications Generic Name Dose Route Start Last Admin Trade Name Freq PRN Reason Stop Dose Admin Albuterol/Ipratropium 1 amp 06/04/17 11:50 06/04/17 14:27 Duoneb - NEB 1 amp Q6H PRN Administration SHORTNESS OF BREATH Amiodarone HCl 200 mg 06/05/17 10:00 Cordarone - PO DAILY [facility] Atorvastatin Calcium 20 mg 06/04/17 22:00 Lipitor - PO HS [facility] Emollient Ointment 1 applic 06/04/17 22:00 Aquaphor - TP BID [facility] Lactated Ringer's 1,000 mls @ 125 mls/hr 06/04/17 11:45 06/04/17 15:37 Lactated Ringers Solution IV Not Given ASDIR [facility] Insulin Aspart 1 vial 06/04/17 16:30 Novolog Vial Sliding Scale - SQ TIDAC [facility] Protocol Nystatin 1 applic 06/04/17 22:00 Mycostatin Cream - TP BID [facility] Ondansetron HCl 4 mg 06/04/17 11:31 Zofran Injection IVPUSH Q6H PRN NAUSEA AND/OR VOMITING Pantoprazole Sodium 40 mg 06/04/17 22:00 Protonix Iv IVPUSH BID [facility] Spironolactone 25 mg 06/05/17 10:00 Aldactone - PO DAILY [facility] CBC, BMP 06/04/17 06:45 06/04/17 06:45 05/30/2017 CXR cardiomegaly with mild congestion EKG: QTC 524, NSR with new RBBB, ASSESSMENT/PLAN: 72 year old female with pmhx of copd(home o2 ), Afib (on xarelto), DMII, HTN, HLD, peripheral venous stasis, h/o DVT who presented to the ED with worsening sob, dyspnea and generalized weakness was found to have hgb of 5.3 and was admitted to [facility] for further evaluation. # Sever symptomatic microcytic anemia 2/2 cecum mass and fragile polyp * presented with hgb 5.3 , S/P 4 units PRBCS * monitor H/H daily * Iron studies , b12, folic acid , * GI consult S/P EGD/ Colonoscopy: cecal mass,sessil polyps with high risk of bleeding #Colon mass: * colonoscopy:cecum mass 2x2 mass in ascending colon, sessile polyp in transverse colon and two polyps in rectum. Biopsies were taken. * Dr Angel surgery was consulted. consider transfer vs operation at [facility] * CT scan Chest/ Abdomen/ Pelvis with IV and PO contrast * Medical oncology for staging * pathology report:Tubular adenoma transverse colon, cecum with villous adenoma, ascending colon invasive adenocarcioma,hyperplastic polyp in rectum. * Pending colon mass pathology * High risk for surgery in term of moderate to sever , CHF, Afib on amiodaron , Hyperthyroidism , new onset DVT # H/O DVT , * hold on xarelto in term of possible bleeding * US lower ext with clot in left common femoral vein * can not due AC now due to risk of bleeding * IVC filter placed today by vascular #Aortic stenosis: * moderate or severe, * F/U repeat ECHo according to Dr Ayers recommendations # Acute on chronic respiratory failure , resolving , * likely due to anemia vs COPD exacerbation vs CHF exacerbation unlikely * O2 as needed to keep O2 >89% * BIPAP PRN * Duo-neb PRN * CXray with cardiomegaly and mild congestion * increased spirnolactone to 50 daily , * F/U ECHO results (after anemia resolved) # JOHNY on chronic CKD , resolving * likely pre renal azotemia due to low hgb and low oral intake * transfuse 4 units * Monitor bun/cr * avoid nephrotoxic agents # AFIB /CHF * rate controlled * Cardiology consult continue current management * Cont Amiodarone 200 mg po daily * hold xarelto due to possible bleeding * monitor and storage bin tender * Echo cardiogram * TropI negative x3 * daily weight , I&O, 2L water restriction , LASIXas needed # DMII * last HGBA1c 5.2 per pt * Hold metformin * ISS * BGM TID AC * Diabetic diet # Morbid obesity * BMO 53.7 * consulted about losing weight and modified life style # HTN * lasix 20 mg PRN * continue Spirnolactone 25 mg po daily # HLD * Lipitor 20 mg po daily # Tinea corporis * beneath the breast * Nystain 1% cream topical TID # peripheral venous changes , stable * chronic for the last 2 years * hold xarelto * apply aquaphor TP BID # H/O left femoral fx 2 years ago, * no surgery was performed , was bed bounded for 3 months after that * monitor # FEN * no standing fluids * monitor BMP * low sodium diabetic diet # Proph * DVTS: scds apply both legs , no chemical prop due to risk of bleeding * GI: protonix 40 mg IV BID # Dispo * admit to tele * Monitor CBC daily * Full code Visit type - Emergency Visit Emergency Visit: Yes ED Registration Date: 05/30/17 Care time: The patient presented to the Emergency Department on the above date and was hospitalized for further evaluation of their emergent condition. - New Patient This patient is new to me today: No - Critical Care Critical Care patient: No - Discharge Referral Referred to [facility] Med P.C.: No
--- NOTE | 2017-06-04 18:42 | PN ---
Progress Note (short form) - Note Progress Note: Chief Complaint: chf History of Present Illness: breathing feels "same" leg swelling improved no cp, palpitations echo deferred today because patient was getting IVC filter placed. No complications. yesterday received 40 mg IV lasix x 2 with slight worsening of her creatinine. Aldactone was held today b/c she was NPO for procedure. remote ex cigs Current Medications Albuterol/Ipratropium (Duoneb -) 1 amp NEB Q6H PRN PRN Reason: SHORTNESS OF BREATH Last Admin: 06/04/17 14:27 Dose: 1 amp Amiodarone HCl (Cordarone -) 200 mg PO DAILY RABIA Atorvastatin Calcium (Lipitor -) 20 mg PO HS RABIA Emollient Ointment (Aquaphor -) 1 applic TP BID RABIA Insulin Aspart (Novolog Vial Sliding Scale -) 1 vial SQ TIDAC RABIA PRN Reason: Protocol Nystatin (Mycostatin Cream -) 1 applic TP BID RABIA Ondansetron HCl (Zofran Injection) 4 mg IVPUSH Q6H PRN PRN Reason: NAUSEA AND/OR VOMITING Pantoprazole Sodium (Protonix Iv) 40 mg IVPUSH BID RABIA Spironolactone (Aldactone -) 25 mg PO DAILY RABIA - Objective Vital Signs: Vital Signs - 24 hr 06/03/17 06/03/17 06/04/17 21:00 22:00 02:00 Temperature 97.8 F 97.9 F Pulse Rate 68 67 Respiratory 18 18 20 Rate Blood Pressure 135/64 118/54 O2 Sat by Pulse 96 Oximetry (%) 06/04/17 06/04/17 06/04/17 06:00 09:00 11:23 Temperature 97.6 F 97.6 F 98.3 F Pulse Rate 70 67 73 Respiratory 20 20 16 Rate Blood Pressure 128/60 153/93 160/50 O2 Sat by Pulse 93 L Oximetry (%) 06/04/17 06/04/17 06/04/17 11:30 11:45 12:00 Temperature Pulse Rate 71 67 62 Respiratory 20 24 20 Rate Blood Pressure 149/48 133/49 126/44 O2 Sat by Pulse 93 L 94 L 97 Oximetry (%) 06/04/17 06/04/17 12:15 14:00 Temperature 98.3 F 98.2 F Pulse Rate 64 72 Respiratory 17 20 Rate Blood Pressure 123/39 124/46 O2 Sat by Pulse 95 Oximetry (%) Intake & Output 06/02/17 06/03/17 06/04/17 06/05/17 07:59 07:59 07:59 07:59 Intake Total 398 143 3623 460 Output Total 1650 3950 5450 500 Balance -1230 -3710 -4220 -40 Weight 293 lb 3.2 oz 263 lb 6.4 oz 251 lb 8 oz Constitutional: Yes: No Distress, Calm Eyes: No: Sclera Icterus HENT: No: Nasal Congestion Cardiovascular: Yes: Regular Rate and Rhythm, JVD, Murmur (hi pitched GYPSY LUSB, single S2), S1, S2, Other (PMI non diplaced). No: Gallop Respiratory: Yes: CTA Bilaterally. Poor effort. No: Accessory Muscle Use, Rales, Wheezes Gastrointestinal: Yes: Normal Bowel Sounds, Soft. No: Tenderness Musculoskeletal: Yes: Other (No kyphosis) Extremities: No: Cold Edema: 1+ le edema with erythema/venous stasis changes. Integumentary: No: Jaundice Neurological: Yes: Alert, Oriented (x3) Psychiatric: No: Agitated Labs: CBC, BMP 06/04/17 06:45 06/04/17 06:45 Laboratory Tests 06/03/17 06/03/17 06/04/17 06:48 06:48 06:45 Total Bilirubin 1.7 H AST 9 L ALT 10 L Alkaline Phosphatase 68 Albumin 3.0 L Free T4 2.18 H Free T3 1.8 L - ....Imaging EKG: Other (tele: NSR, frequent pvc's) Assessment/Plan ecg 05/30/17: sr, rbbb, nl intervals, no st changes cxr: mild congestion echo 05/2017: nl lv/rv, mod as (peak/mean gradients 68/36, WOO 1.1. LVOT 2.0, LVOT VTI = 39) *ECHO IMAGES REVIEWED BY DR PARISH: i believe measured LVOT (2.1cm) is erroneous , and LVOT dimension is actually 1.7-1.8cm. There is an unusually high LVOT velocity/VTI (39 cm), despite apparently normal cursor positioning on the apical 3-chamber view. Peak and mean AV gradients are 63-69/32-37 mmHg, respectively. AV VTI is 98-102 (multiple doppler envelopes traced). Estimated WOO using these numbers comes to 0.8-0.9 cm2. a/p: 72 f hx copd, afib, dm, htn, hld, venous insuff/le edema, here with ceja. sob, cp, anemia, acute diast chf: -no signs chf or acs (trop negx3) -likely sxs due to severe anemia with hgb in 5s. After prbcs pt reports feeling better, and feels she is at her copd baseline as far as nonexertional, mild breathlessness - 05/31: received IV lasix 20 mg x 1. -06/02: evidence of decompensated chf with elevated JVD on exam. CXR diffuse markings (without vasc redistribution) = ? interstitial edema. lasix 40mg IVP x 1 given. -06/03: 4100 cc UOP yesterday, wt unchanged. remains with same LE edema and JVD. states drinks a lot of water--rec 2L fluid restriction. lasix 40 mg IVP x 2. - 06/04: Cr worsened on IV lasix, will hold today and reassess lower dose tomorrow. s/p IVC filter placement today. echo pending -assess weights, labs daily aortic stenosis, moderate vs severe: -suspect severe based on phys exam (single S2, decr carotid intensity), AV gradients, and WOO 0.8-0.9 when LVOT re-measured manually by me (on multiple frames). -HOWEVER: echo was performed while pt was severely anemic (hgb 6s-7s that day, ) which often spuriously increases gradients/VTIs--while this may incr VTI in LVOT and across AV proportionally, hence leading to similar WOO estimation, cannot predict that with certainty. Repeat echo pending. 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 now s/p IVC filter 06/04 colon mass, preop CV eval: -gi eval found colon mass, likely will need surgery. dr garcia consulted. -Revised CV Risk Index = 1, unknown functional status -currently suspect mildly decompensated chf--optimizing this prior to surgery -suspect severe but this needs to be confirmed with repeat echo, as disc'd above. -if severe present, this will impart high risk of periop CV complications. if appears moderate, her risk will be in the intermediate range. -appreciate dr garcia note re: surgery at tertiary care center. 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 Larios) in case of complications...he can also weigh in on amio then as well copd: -pt reports this dx, with chronic sob she attributes -stable, no signs a.e. renal insufficiency: -creat 1.5-1.6 here, no baseline data available -renal fxn remains stable -trend labs daily for now, given diuresis starting htn: -reasonably controlled -cont aldactone hyperthyroidism: -low TSH, elevated free T4 - pt on amiodarone. management per hospitalist venous insuff/le edema: -worsened of late ? due to chf -diuresis as above
[2017-06-04] MEDS: ATORVASTATIN CA 20 MG TABLET (FP) PO SCH (22:13)
[2017-06-05] MEDS: INSULIN SLIDING SCALE (NOVOLOG) 1 VIAL SQ SCH ×3 (06:28→16:39)
[2017-06-05 07:07] LABS: HEMATOCRIT 32.8 % (32.4-45.2); HEMOGLOBIN 10.8 GM/dL (10.7-15.3); MCH 26.3 pg (25.7-33.7); MCHC 32.9 g/dl (32.0-36.0); MEAN CELL VOLUME 80.1 fl (80-96); MEAN PLT VOLUME 8.5 fl (7.5-11.1); PLATELET COUNT 201 K/MM3 (134-434); RBC 4.09 M/mm3 (3.60-5.2); RDW 23.4 % (11.6-15.6)
[2017-06-05 07:26] LABS: ALBUMIN 2.9 g/dl (3.4-5.0); ANION GAP 10 (8-16); BILIRUBIN,TOTAL 1.2 mg/dL (0.2-1.0); BLOOD UREA NITROGEN 24 mg/dL (7-18); CALCIUM 7.8 mg/dL (8.5-10.1); CHLORIDE 105 mmol/L (98-107); CO2 27 mmol/L (21-32); CREATININE 1.7 mg/dL (0.55-1.02); GLUCOSE,RANDOM 122 mg/dL (74-106); MAGNESIUM 1.9 mg/dL (1.8-2.4); PHOSPHOROUS 3.9 mg/dL (2.5-4.9); POTASSIUM 3.9 mmol/L (3.5-5.1); SGOT/AST 9 U/L (15-37); SGPT/ALT 9 U/L (12-78); SODIUM 142 mmol/L (136-145); TOT PROT 5.5 g/dl (6.4-8.2)
[2017-06-05 07:27] LABS: ALK PHOS 69 U/L (45-117)
[2017-06-05] MEDS: SPIRONOLACTONE 25 MG TABLET (FP) PO SCH (09:30)
[2017-06-05] MEDS: MINERAL OIL/PET HY-PHL TOPICAL OINTMENT 454 GM JAR TP SCH ×2 (09:30→22:52)
[2017-06-05] MEDS: PANTOPRAZOLE SODIUM 40 MG VIAL IVPUSH SCH ×2 (09:30→22:52)
[2017-06-05] MEDS: NYSTATIN 100,000 UNIT/GM TOPICAL CREAM 15 GM TUBE TP SCH ×2 (09:31→22:52)
[2017-06-05] MEDS ORDERED: SODIUM CHLORIDE 1,000 ML IV SCH (09:45)
[2017-06-05] MEDS ORDERED: DIGOXIN 0.125 MG TABLET (FP) PO ONE (09:45)
--- NOTE | 2017-06-05 09:56 | PN ---
Physical Exam: SUBJECTIVE: Patient seen and examined a bedside. breathing is better the leg swelling improved a little. denies any fever, chills , N/V/D/C. OBJECTIVE: Vital Signs Period Temp Pulse Resp BP Sys/[place] Pulse Ox Last 24 Hr 97.7 F-99.4 F 62-75 16-24 107-160/39-69 93-97 GENERAL: The patient is awake, alert, and fully oriented, in no acute distress. HEAD: Normal with no signs of trauma. EYES: sclera anicteric, conjunctiva clear. ENT: dry mucous membranes. NECK: supple.+ JVD LUNGS:diminished breath sound at the base, no wheezes, no crackles, no accessory muscle use. HEART: Regular rate and rhythm, S1, S2 3/6 systolic murmur LUSB , no rub or gallop. ABDOMEN: Obese Soft, nontender, nondistended, normoactive bowel sounds, no guarding, no rebound. EXTREMITIES: 2+ pulses, warm, well-perfuse,+1 edema with erythema and peripheral venous changes NEUROLOGICAL: NO focal deficit. Normal speech, gait not observed. PSYCH: Normal mood, normal affect. SKIN: Warm, dry,erythematous rash beneath the breast Laboratory Results - last 24 hr 05/30/17 06/03/17 06/04/17 13:30 06:48 18:14 WBC RBC Hgb Hct MCV MCH MCHC RDW Plt Count MPV Sodium Potassium Chloride Carbon Dioxide Anion Gap BUN Creatinine Creat Clearance w eGFR POC Glucometer 122 Random Glucose Calcium Phosphorus Magnesium Total Bilirubin AST ALT Alkaline Phosphatase Total Protein Albumin Free T3 1.8 L Blood Type O POSITIVE Antibody Screen Negative Crossmatch See Detail 06/05/17 06/05/17 06/05/17 06:26 06:30 06:30 WBC 8.0 RBC 4.09 Hgb 10.8 Hct 32.8 MCV 80.1 MCH 26.3 MCHC 32.9 RDW 23.4 H Plt Count 201 MPV 8.5 Sodium 142 Potassium 3.9 Chloride 105 Carbon Dioxide 27 Anion Gap 10 BUN 24 H Creatinine 1.7 H Creat Clearance w eGFR 29.38 POC Glucometer 144 Random Glucose 122 H Calcium 7.8 L Phosphorus 3.9 Magnesium 1.9 Total Bilirubin 1.2 H D AST 9 L ALT 9 L Alkaline Phosphatase 69 Total Protein 5.5 L Albumin 2.9 L Free T3 Blood Type Antibody Screen Crossmatch Active Medications Generic Name Dose Route Start Last Admin Trade Name Freq PRN Reason Stop Dose Admin Albuterol/Ipratropium 1 amp 06/04/17 11:50 06/04/17 20:30 Duoneb - NEB 1 amp Q6H PRN Administration SHORTNESS OF BREATH Atorvastatin Calcium 20 mg 06/04/17 22:00 06/04/17 22:13 Lipitor - PO 20 mg HS RABIA Administration Digoxin 0.125 mg 06/06/17 10:00 Lanoxin - PO DAILY RABIA Diltiazem HCl 240 mg 06/05/17 10:00 06/05/17 09:30 Cardizem Cd - PO 240 mg DAILY RABIA Administration Emollient Ointment 1 applic 06/04/17 22:00 06/05/17 09:30 Aquaphor - TP 1 applic BID RABIA Administration Sodium Chloride 1,000 mls @ 50 mls/hr 06/05/17 09:45 06/05/17 09:45 Normal Saline - IV 50 mls/hr ASDIR RABIA Administration Insulin Aspart 1 vial 06/04/17 16:30 06/05/17 06:28 Novolog Vial Sliding Scale - SQ Not Given TIDAC RABIA Protocol Nystatin 1 applic 06/04/17 22:00 06/05/17 09:31 Mycostatin Cream - TP 1 applic BID RABIA Administration Ondansetron HCl 4 mg 06/04/17 11:31 Zofran Injection IVPUSH Q6H PRN NAUSEA AND/OR VOMITING Pantoprazole Sodium 40 mg 06/04/17 22:00 06/05/17 09:30 Protonix Iv IVPUSH 40 mg BID RABIA Administration Spironolactone 25 mg 06/05/17 10:00 06/05/17 09:30 Aldactone - PO 25 mg DAILY RABIA Administration CBC, BMP 06/05/17 06:30 06/05/17 06:30 05/30/2017 CXR cardiomegaly with mild congestion EKG: QTC 524, NSR with new RBBB, ASSESSMENT/PLAN: 72 year old female with pmhx of copd(home o2 ), Afib (on xarelto), DMII, HTN, HLD, peripheral venous stasis, h/o DVT who presented to the ED with worsening sob, dyspnea and generalized weakness was found to have hgb of 5.3 and was admitted to [facility] for further evaluation. # Sever symptomatic microcytic anemia 2/2 cecum mass and fragile polyp * presented with hgb 5.3 , S/P 4 units PRBCS * monitor H/H daily * Iron studies , b12, folic acid , * GI consult S/P EGD/ Colonoscopy: cecal mass,sessil polyps with high risk of bleeding #Colon mass: * colonoscopy:cecum mass 2x2 mass in ascending colon, sessile polyp in transverse colon and two polyps in rectum. Biopsies were taken. * Dr Angel surgery was consulted. consider transfer vs operation at [facility] * CT scan Chest/ Abdomen/ Pelvis with IV and PO contrast holddue to worsening kidney function * Medical oncology for staging * CEA pending * pathology report:Tubular adenoma transverse colon, cecum with villous adenoma, ascending colon invasive adenocarcioma,hyperplastic polyp in rectum. * Pending colon mass pathology * High risk for surgery in term of moderate to sever , CHF, Afib on amiodaron , Hyperthyroidism , new onset DVT # H/O DVT , * hold on xarelto in term of possible bleeding * US lower ext with clot in left common femoral vein * can not due AC now due to risk of bleeding * IVC filter placed by vascular * consider progpylactic dose of lovenox per oncology Dr Tompkins #moderate to sever Aortic stenosis: * F/U repeat ECHo according to Dr Ayers recommendations # Hyperthyroidism * low tsh, elevated Ft4 , normal Ft3 * DR clemens consulted recommedn thyroid US and Methimazole 10 mg QD satrting tomorrow. # Acute on chronic respiratory failure , resolving , * likely due to anemia vs COPD exacerbation vs CHF exacerbation unlikely * O2 as needed to keep O2 >89% * BIPAP PRN * Duo-neb PRN * CXray with cardiomegaly and mild congestion * increased spirnolactone to 50 daily , * F/U ECHO results (after anemia resolved) # JOHNY on chronic CKD , resolving * likely pre renal azotemia due to low hgb and low oral intake * transfuse 4 units * Monitor bun/cr * avoid nephrotoxic agents # AFIB /CHF * rate controlled * Cardiology consult continue current management * DC Amiodarone 200 mg po daily due to hyperthyroidism * hold xarelto due to 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 bleeding * 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 * 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 Echo cardiogram reviewed * TropI negative x3 * daily weight , I&O, 2L water restriction , LASIXas needed # DMII * last HGBA1c 5.2 per pt * Hold metformin * ISS * BGM TID AC * Diabetic diet # Morbid obesity * BMO 53.7 * consulted about losing weight and modified life style # HTN * lasix 20 mg PRN * continue Spirnolactone 25 mg po daily # HLD * Lipitor 20 mg po daily # Tinea corporis * beneath the breast * Nystain 1% cream topical TID # peripheral venous changes , stable * chronic for the last 2 years * hold xarelto * apply aquaphor TP BID # H/O left femoral fx 2 years ago, * no surgery was performed , was bed bounded for 3 months after that * monitor # FEN * NS 50 CC/hr * monitor BMP * low sodium diabetic diet # Proph * DVTS: scds apply both legs , no chemical prop due to risk of bleeding * GI: protonix 40 mg IV BID # Dispo * admit to tele * Monitor CBC daily * Full code Visit type - Emergency Visit Emergency Visit: Yes ED Registration Date: 05/30/17 Care time: The patient presented to the Emergency Department on the above date and was hospitalized for further evaluation of their emergent condition. - New Patient This patient is new to me today: No - Critical Care Critical Care patient: No
[2017-06-05] MEDS ORDERED: AMIODARONE HCL 200 MG TABLET (FP) PO SCH (10:00)
--- NOTE | 2017-06-05 10:29 | PN ---
Progress Note, Physician Chief Complaint: right colon mass History of Present Illness: 72 yo female PMH COPD(home oxygen, concentrator), Afib (on xarelto), DM type 2 ( on metformin) , HTN, morbid obesity, HLD, peripheral venous stasis, h/o DVT who presented to the ED with worsening sob, dyspnea and generalized weakness and was admitted to telemetry for further evaluation. s/p IVC filter placement for Left LE DVT, awaiting a repeat echocardiogram to better characterize her ( moderate vs. severe) and current CHF. - Current Medication List Current Medications: Active Medications Albuterol/Ipratropium (Duoneb -) 1 amp NEB Q6H PRN PRN Reason: SHORTNESS OF BREATH Last Admin: 06/04/17 20:30 Dose: 1 amp Atorvastatin Calcium (Lipitor -) 20 mg PO HS [facility] Last Admin: 06/04/17 22:13 Dose: 20 mg Digoxin (Lanoxin -) 0.125 mg PO DAILY [facility] Diltiazem HCl (Cardizem Cd -) 240 mg PO DAILY [facility] Last Admin: 06/05/17 09:30 Dose: 240 mg Emollient Ointment (Aquaphor -) 1 applic TP BID [facility] Last Admin: 06/05/17 09:30 Dose: 1 applic Sodium Chloride (Normal Saline -) 1,000 mls @ 50 mls/hr IV ASDIR [facility] Last Admin: 06/05/17 09:45 Dose: 50 mls/hr Insulin Aspart (Novolog Vial Sliding Scale -) 1 vial SQ TIDAC [facility] PRN Reason: Protocol Last Admin: 06/05/17 06:28 Dose: Not Given Nystatin (Mycostatin Cream -) 1 applic TP BID [facility] Last Admin: 06/05/17 09:31 Dose: 1 applic Ondansetron HCl (Zofran Injection) 4 mg IVPUSH Q6H PRN PRN Reason: NAUSEA AND/OR VOMITING Pantoprazole Sodium (Protonix Iv) 40 mg IVPUSH BID [facility] Last Admin: 06/05/17 09:30 Dose: 40 mg Spironolactone (Aldactone -) 25 mg PO DAILY [facility] Last Admin: 06/05/17 09:30 Dose: 25 mg - Objective Vital Signs: Vital Signs Temperature 97.7 F 06/05/17 07:00 Pulse Rate 68 06/05/17 09:44 Respiratory Rate 17 06/05/17 09:00 Blood Pressure 131/49 06/05/17 07:00 O2 Sat by Pulse Oximetry (%) 96 06/05/17 09:00 Constitutional: Yes: No Distress, Calm, Obese Eyes: Yes: Conjunctiva Clear, EOM Intact HENT: Yes: Atraumatic, Normocephalic Neck: Yes: Supple, Trachea Midline Cardiovascular: Yes: Regular Rate and Rhythm, S1, S2 Respiratory: Yes: Regular, CTA Bilaterally Gastrointestinal: Yes: Normal Bowel Sounds, Soft, Abdomen, Obese. No: Ascites, Palpable Mass, Splenomegaly, Tenderness ...Rectal Exam: Yes: Sphincter Tone Normal. No: Hemorrhoids/External Genitourinary: No: CVA Tenderness - Left, CVA Tenderness - Right Musculoskeletal: No: Muscle Pain, Muscle Weakness Extremities: Yes: Calf Tenderness (left). No: Cool, Cyanosis Edema: Yes Edema: LLE: 2+, RLE: 2+ Peripheral Pulses WNL: Yes Peripheral Pulses: Left Radial: 2+, Right Radial: 2+, Left Doralis Pedis: 2+, Right Dorsalis Pedis: 2+, Left Femoral: 2+, Right Femoral: 2+ Integumentary: No: Jaundice, Rash Neurological: Yes: Alert, Oriented Psychiatric: Yes: Alert, Oriented Labs: CBC, BMP 06/05/17 06:30 06/05/17 06:30 INR, PTT INR 1.16 (0.82-1.09) H 05/31/17 09:40 Problem List - Problems (1) Colon adenocarcinoma Assessment/Plan: 72 yo female MMP with chronic blood loss anemia, weakness, and a newly diagnosed invasive adenocarcinoma in the ascending colon. She is ammenable to the idea of having surgery if it is indicated but expressed concern about her fitness for such a procedure. Cardiology evaluation cardiac optimization given , high perioperative risk for an event based on severe and decompensated CHF. She will be transferred to [place] for further care. Preoperative optimization Appreciate and agree with Cardiology and Pulmonary reccomendations Nutritional optimization Will discuss with primary team Code(s): C18.9 - MALIGNANT NEOPLASM OF COLON, UNSPECIFIED (2) Cecum mass Code(s): K63.9 - DISEASE OF INTESTINE, UNSPECIFIED (3) Anemia Code(s): D64.9 - ANEMIA, UNSPECIFIED Qualifiers: Iron deficiency anemia type: chronic blood loss (4) COPD (chronic obstructive pulmonary disease) Code(s): J44.9 - CHRONIC OBSTRUCTIVE PULMONARY DISEASE, UNSPECIFIED (5) Morbid obesity due to excess calories Code(s): E66.01 - MORBID (SEVERE) OBESITY DUE TO EXCESS CALORIES
--- NOTE | 2017-06-05 13:27 | PN ---
Progress Note (short form) - Note Progress Note: Chief Complaint: chf History of Present Illness: breathing feels "same" lasix held yesterday due to worsened creatinine. aldactone held yesterday b/c npo. This morning patient was started on low dose maintenance fluids. Patient denies worsened sob, le edema on fluids and off lasix yesterday. no cp, palpitations remote ex cigs Current Medications Albuterol/Ipratropium (Duoneb -) 1 amp NEB Q6H PRN PRN Reason: SHORTNESS OF BREATH Last Admin: 06/04/17 20:30 Dose: 1 amp Atorvastatin Calcium (Lipitor -) 20 mg PO HS [facility] Last Admin: 06/04/17 22:13 Dose: 20 mg Diltiazem HCl (Cardizem Cd -) 240 mg PO DAILY [facility] Emollient Ointment (Aquaphor -) 1 applic TP BID [facility] Last Admin: 06/05/17 09:30 Dose: 1 applic Sodium Chloride (Normal Saline -) 1,000 mls @ 50 mls/hr IV ASDIR [facility] Last Admin: 06/05/17 09:45 Dose: 50 mls/hr Insulin Aspart (Novolog Vial Sliding Scale -) 1 vial SQ TIDAC [facility] PRN Reason: Protocol Last Admin: 06/05/17 11:06 Dose: Not Given Nystatin (Mycostatin Cream -) 1 applic TP BID [facility] Last Admin: 06/05/17 09:31 Dose: 1 applic Ondansetron HCl (Zofran Injection) 4 mg IVPUSH Q6H PRN PRN Reason: NAUSEA AND/OR VOMITING Pantoprazole Sodium (Protonix Iv) 40 mg IVPUSH BID [facility] Last Admin: 06/05/17 09:30 Dose: 40 mg Spironolactone (Aldactone -) 25 mg PO DAILY [facility] Last Admin: 06/05/17 09:30 Dose: 25 mg - Objective Vital Signs: Vital Signs - 24 hr 06/04/17 06/04/17 06/04/17 14:00 18:00 21:00 Temperature 98.2 F 98.3 F 99.4 F Pulse Rate 72 75 70 Respiratory 20 20 20 Rate Blood Pressure 124/46 107/39 112/66 O2 Sat by Pulse 95 Oximetry (%) 06/05/17 06/05/17 06/05/17 01:09 07:00 09:00 Temperature 97.7 F 97.7 F Pulse Rate 66 64 Respiratory 20 17 17 Rate Blood Pressure 137/69 131/49 O2 Sat by Pulse 96 Oximetry (%) 06/05/17 06/05/17 09:44 11:31 Temperature Pulse Rate 68 74 Respiratory Rate Blood Pressure O2 Sat by Pulse 95 Oximetry (%) Intake & Output 06/03/17 06/04/17 06/05/17 06/06/17 07:59 07:59 07:59 07:59 Intake Total 240 1230 850 200 Output Total 3950 5450 700 Balance -3710 -4220 150 200 Weight 263 lb 6.4 oz 251 lb 8 oz 255 lb 8 oz Constitutional: Yes: No Distress, Calm Eyes: No: Sclera Icterus HENT: No: Nasal Congestion Cardiovascular: Yes: Regular Rate and Rhythm, JVD, Murmur (hi pitched GYPSY LUSB, single S2), S1, S2, Other (PMI non diplaced). No: Gallop Respiratory: Yes: CTA Bilaterally. Poor effort. No: Accessory Muscle Use, Rales, Wheezes Gastrointestinal: Yes: Normal Bowel Sounds, Soft. No: Tenderness Musculoskeletal: Yes: Other (No kyphosis) Extremities: No: Cold Edema: 1+ le edema with erythema/venous stasis changes. Integumentary: No: Jaundice Neurological: Yes: Alert, Oriented (x3) Psychiatric: No: Agitated Labs: CBC, BMP 06/05/17 06:30 06/05/17 06:30 Laboratory Tests 06/05/17 06:30 Magnesium 1.9 Total Bilirubin 1.2 H D AST 9 L ALT 9 L Alkaline Phosphatase 69 Albumin 2.9 L - ....Imaging EKG: Other (tele: NSR, pvc's) Assessment/Plan ecg 05/30/17: sr, rbbb, nl intervals, no st changes cxr: 06/05 images and report reviewed. Mild congestive changes. cxr: mild congestion echo 05/2017: nl lv/rv, mod as (peak/mean gradients 68/36, WOO 1.1. LVOT 2.0, LVOT VTI = 39) *ECHO IMAGES REVIEWED BY DR PARISH: i believe measured LVOT (2.1cm) is erroneous , and LVOT dimension is actually 1.7-1.8cm. There is an unusually high LVOT velocity/VTI (39 cm), despite apparently normal cursor positioning on the apical 3-chamber view. Peak and mean AV gradients are 63-69/32-37 mmHg, respectively. AV VTI is 98-102 (multiple doppler envelopes traced). Estimated WOO using these numbers comes to 0.8-0.9 cm2. a/p: 72 f hx copd, afib, dm, htn, hld, venous insuff/le edema, here with ceja. sob, cp, anemia, acute diast chf: -no signs chf or acs (trop negx3) -likely sxs due to severe anemia with hgb in 5s. After prbcs pt reports feeling better, and feels she is at her copd baseline as far as nonexertional, mild breathlessness - 05/31: received IV lasix 20 mg x 1. -06/02: evidence of decompensated chf with elevated JVD on exam. CXR diffuse markings (without vasc redistribution) = ? interstitial edema. lasix 40mg IVP x 1 given. -06/03: 4100 cc UOP yesterday, wt unchanged. remains with same LE edema and JVD. states drinks a lot of water--rec 2L fluid restriction. lasix 40 mg IVP x 2. - 06/04: Cr worsened on IV lasix, will hold today and reassess lower dose tomorrow. s/p IVC filter placement today. echo pending -assess weights, labs daily - 06/05: patient with slightly worsened creatinine today after holding lasix. gentle maintenance fluids started today. Would recheck bmp in afternoon to assess direction of creatinine IVF considering total body volume overload and mild congestion on cxr, etc.. Consider starting po diuretic regimen tomorrow. May benefit from torsemide over lasix, will start with trial of torsemide 20 mg/ day. aortic stenosis, moderate vs severe: -suspect severe based on phys exam (single S2, decr carotid intensity), AV gradients, and WOO 0.8-0.9 when LVOT re-measured manually by me (on multiple frames). -HOWEVER: echo was performed while pt was severely anemic (hgb 6s-7s that day, ) which often spuriously increases gradients/VTIs--while this may incr VTI in LVOT and across AV proportionally, hence leading to similar WOO estimation, cannot predict that with certainty. Repeat echo pending. - 06/05: discussed with primary team who spoke with her school bus driver/custodian. Likely plan for transfer to [place] per his preference even without repeat echo results (echo still pending). pafib: -in sr now -cont amio for now--may need to reconsider in light of new hyperthyroidism-- defer to outpt school bus driver/custodian - 06/05 pmd discussed with outpatient school bus driver/custodian. He had not prescribed amiodarone and per report patient was taking amiodarone infrequently. Outpatient school bus driver/custodian recs stopping amiodarone and resuming prior outpatient dilitazem. -was on xarelto, holding due to severe anemia DVT (L CFV): -AC on hold sec to GIB. now s/p IVC filter 06/04 colon mass, preop CV eval: -gi eval found colon mass, likely will need surgery. dr garcia consulted. -Revised CV Risk Index = 1, unknown functional status -currently suspect mildly decompensated chf--optimizing this prior to surgery -suspect severe but this needs to be confirmed with repeat echo, as disc'd above. -if severe present, this will impart high risk of periop CV complications. if appears moderate, her risk will be in the intermediate range. -appreciate dr garcia note re: surgery at tertiary care center. -d/w'd dr zamarripa 06/03: in light of chf, severe (or borderline), new DVT, hyperthyroidism in setting of pt on prior amio, agree her risk of periop CHF is high /and would be ideal for her to be in a tertiary care center where her school bus driver/custodian is ([facility] [place]ud [place], Dr. Larios) in case of complications... - 06/05 discussed with pmd. possible plan [place] [facility] [place] of her outpatient school bus driver/custodian as mentioned above. copd: -pt reports this dx, with chronic sob she attributes -stable, no signs a.e. renal insufficiency: -creat 1.5-1.6 here, no baseline data available -trend labs daily for now, monitor with changing diuretic regimen. repeat bmp this afternoon as mentioned above htn: -reasonably controlled -cont aldactone. starting diltiazem 06/05, monitor. hyperthyroidism: -low TSH, elevated free T4 - pt on amiodarone. management per hospitalist/ endocrine venous insuff/le edema: -worsened of late ? due to chf - currently stable.
--- NOTE | 2017-06-05 13:35 | CONSULT ---
Consult Consult Specialty:: Endocrinology Referred by:: Dr Taurus Anderson Reason for Consultation:: Abnormal TFT - History of Present Illness Chief Complaint: SOB History of Present Illness: This is a 72 year old female with h/o COPD on home o2 , Afib (on xarelto), DMII , HTN, HLD, peripheral venous stasis, h/o DVT who presented to the ED with worsening SOB, and generalized weakness and was found to have hgb of 5.3 and was admitted for further evaluation. 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 Pt also found to have abnormal TFT and referred for evaluation. According to pt she has been on amiodarone for about a year. Amiodarone stopped a few days ago in the hopsital. Pt denies an personal or family h/o thyroid disorder. She denies any heat or cold intolerance. No recent change in wt. Had tremors of hands for sometine. - History Source History Provided By: Patient, Medical Record - Past Medical History Cardio/Vascular: Yes: AFIB (on xeralto), HTN, Hyperlipdemia Pulmonary: Yes: COPD, O2 Dependent Endocrine: Yes: Diabetes Mellitus - Past Surgical History Additional Surgical History: left knee arthroplast - Alcohol/Substance Use Hx Alcohol Use: No - Smoking History Smoking history: Former smoker Have you smoked in the past 12 months: No If you are a former smoker, when did you quit?: 1969 - Social History Usual Living Arrangement: Alone (in [place]) History of Recent Travel: No Home Medications - Allergies Allergies/Adverse Reactions: Allergies Allergy/AdvReac Type Severity Reaction Status Date / Time No Known Allergies Allergy Verified 05/30/17 12:09 - Home Medications Home Medications: Ambulatory Orders Furosemide [Lasix] 20 mg PO TUTH 05/30/17 Metformin HCl 500 mg PO BID 05/30/17 Rivaroxaban [Xarelto -] 20 mg PO DAILY 05/30/17 Spironolactone 25 mg PO DAILY 05/30/17 Digoxin [Lanoxin -] 0.125 mg PO DAILY 06/05/17 Diltiazem Cd [Cardizem Cd -] 240 mg PO DAILY 06/05/17 Family Disease History - Family Disease History Other Family History: No family h/o thyroid disorder Review of Systems - Review of Systems Constitutional: reports: Malaise, Weakness Eyes: reports: No Symptoms HENT: reports: No Symptoms Neck: reports: No Symptoms Respiratory: reports: SOB Gastrointestinal: reports: No Symptoms Integumentary: reports: Other (stasis changes of legs) Neurological: reports: No Symptoms Physical Exam Vital Signs: Vital Signs Temperature 97.7 F 06/05/17 07:00 Pulse Rate 74 06/05/17 11:31 Respiratory Rate 17 06/05/17 09:00 Blood Pressure 131/49 06/05/17 07:00 O2 Sat by Pulse Oximetry (%) 95 06/05/17 11:31 Constitutional: Yes: No Distress, Calm Eyes: Yes: Conjunctiva Clear, EOM Intact HENT: Yes: Atraumatic, Normocephalic Neck: Yes: Supple, Trachea Midline Cardiovascular: Yes: Pulse Irregular, Murmur (Murmur aortic area) Respiratory: Yes: Regular, CTA Bilaterally Gastrointestinal: Yes: Normal Bowel Sounds, Soft Extremities: Yes: Other (Stasis changes of legs) Edema: Yes Labs: CBC, BMP 06/05/17 06:30 06/05/17 06:30 Problem List - Problems (1) Anemia Code(s): D64.9 - ANEMIA, UNSPECIFIED Qualifiers: Iron deficiency anemia type: chronic blood loss (2) COPD (chronic obstructive pulmonary disease) Code(s): J44.9 - CHRONIC OBSTRUCTIVE PULMONARY DISEASE, UNSPECIFIED (3) Colon adenocarcinoma Code(s): C18.9 - MALIGNANT NEOPLASM OF COLON, UNSPECIFIED (4) Hyperthyroidism Code(s): E05.90 - THYROTOXICOSIS, UNSP WITHOUT THYROTOXIC CRISIS OR STORM (5) Morbid obesity due to excess calories Code(s): E66.01 - MORBID (SEVERE) OBESITY DUE TO EXCESS CALORIES Assessment/Plan AP: Abnormal TFT: Low TSH, high FT4 and normal FT3 ?Amiodarone induced hyperthyroidism vs Graves vs Toxic nodules TSH, FT4, FT3, TG, IL6 If still hyperthyroid will start Methimazole 10mg QD starting tomorrow USG of thyroid Anemia Colon Ca T2DM
--- NOTE | 2017-06-05 14:27 | OP ---
DATE OF OPERATION: 06/04/2017 PREOPERATIVE DIAGNOSES: Deep venous thrombosis with gastrointestinal bleed. POSTOPERATIVE DIAGNOSES: Deep venous thrombosis with gastrointestinal bleed. PROCEDURE: Insertion of inferior vena cava filter with venogram. SURGEON: Gerson Núñez DO ANESTHESIA: Fractional. BLOOD LOSS: 10 mL INDICATION FOR PROCEDURE: The patient is a 72-year-old female who has a DVT in her left common femoral vein. At the same time, she came in with a low hematocrit and hemoglobin/hematocrit with a hemoglobin of 5. She was just transfused 3 units of packed red blood cells. GI performed a colonoscopy finding a cecal mass that is bleeding. She cannot be anticoagulated because of this bleeding mass and thus needs an IVC filter. The patient was consented for the procedure, understanding all risks, benefits, and alternatives, then taken to the operating room. DESCRIPTION OF PROCEDURE: Once in the operating suite, laid on the operating table in supine manner, and the areas of the right and left groins were prepped and draped in a sterile surgical manner. We then went ahead and injected 10 mL of lidocaine 1% over the right common femoral vein. We then went ahead and placed our micropuncture needle into the right common femoral vein. Micropuncture wire was inserted. Micropuncture sheath was inserted. A 0.03 floppy guidewire was inserted into the inferior vena cava under fluoroscopy. We then went ahead and placed our IVC filter sheath up to L3. We then went ahead and shot our venogram via hand injection, showing that the right and left renal veins come off at L1. Those were marked on the screen. We then loaded the filter into the sheath. We then went ahead and deployed the filter at L3. Completion vena cavagram was then performed, showing that the filter was in place. There was no migration of the filter. There was no extravasation of contrast, and bilateral renal veins were patent. At this point, we took out our sheath. Pressure was held in the right groin for 5 minutes. After there was no bleeding, area was wet and dried, and Dermabond was placed. Patient tolerated the procedure with no complications. Patient was transferred to PACU in stable condition. GERSON NÚÑEZ DO NP/[id number]
--- NOTE | 2017-06-05 14:46 | PN ---
Teaching Attending Note Name of Resident: Taurus Anderson ATTENDING PHYSICIAN STATEMENT I saw and evaluated the patient. I reviewed the resident's note and discussed the case with the resident. I agree with the resident's findings and plan as documented. SUBJECTIVE: Patient has no acute changes. Stable hemoglobin. No fever or chills, no shortness of breath. OBJECTIVE: Vital Signs Temperature 97.7 F 06/05/17 07:00 Pulse Rate 74 06/05/17 11:31 Respiratory Rate 17 06/05/17 09:00 Blood Pressure 131/49 06/05/17 07:00 O2 Sat by Pulse Oximetry (%) 95 06/05/17 11:31 CBCD WBC 8.0 K/mm3 (4.0-10.0) 06/05/17 06:30 RBC 4.09 M/mm3 (3.60-5.2) 06/05/17 06:30 Hgb 10.8 GM/dL (10.7-15.3) 06/05/17 06:30 Hct 32.8 % (32.4-45.2) 06/05/17 06:30 MCV 80.1 fl (80-96) 06/05/17 06:30 MCHC 32.9 g/dl (32.0-36.0) 06/05/17 06:30 RDW 23.4 % (11.6-15.6) H 06/05/17 06:30 Plt Count 201 K/MM3 (134-434) 06/05/17 06:30 MPV 8.5 fl (7.5-11.1) 06/05/17 06:30 CMP Sodium 142 mmol/L (136-145) 06/05/17 06:30 Potassium 3.9 mmol/L (3.5-5.1) 06/05/17 06:30 Chloride 105 mmol/L (98-107) 06/05/17 06:30 Carbon Dioxide 27 mmol/L (21-32) 06/05/17 06:30 Anion Gap 10 (8-16) 06/05/17 06:30 BUN 24 mg/dL (7-18) H 06/05/17 06:30 Creatinine 1.7 mg/dL (0.55-1.02) H 06/05/17 06:30 Creat Clearance w eGFR 29.38 (>60) 06/05/17 06:30 Random Glucose 122 mg/dL (74-106) H 06/05/17 06:30 Calcium 7.8 mg/dL (8.5-10.1) L 06/05/17 06:30 Total Bilirubin 1.2 mg/dL (0.2-1.0) H D 06/05/17 06:30 AST 9 U/L (15-37) L 06/05/17 06:30 ALT 9 U/L (12-78) L 06/05/17 06:30 Alkaline Phosphatase 69 U/L (45-117) 06/05/17 06:30 Total Protein 5.5 g/dl (6.4-8.2) L 06/05/17 06:30 Albumin 2.9 g/dl (3.4-5.0) L 06/05/17 06:30 CARDIAC ENZYMES Creatine Kinase 28 IU/L (26-192) 05/30/17 13:10 Troponin I 0.02 ng/ml (0.00-0.05) 05/31/17 00:40 Current Medications Generic Name Dose Route Start Last Admin Trade Name Freq PRN Reason Stop Dose Admin Albuterol/Ipratropium 1 amp 06/04/17 11:50 06/04/17 20:30 Duoneb - NEB 1 amp Q6H PRN Administration SHORTNESS OF BREATH Atorvastatin Calcium 20 mg 06/04/17 22:00 06/04/17 22:13 Lipitor - PO 20 mg HS [facility] Administration Digoxin 0.125 mg 06/06/17 10:00 Lanoxin - PO DAILY [facility] Diltiazem HCl 240 mg 06/06/17 10:00 Cardizem Cd - PO DAILY [facility] Emollient Ointment 1 applic 06/04/17 22:00 06/05/17 09:30 Aquaphor - TP 1 applic BID [facility] Administration Sodium Chloride 1,000 mls @ 50 mls/hr 06/05/17 09:45 06/05/17 09:45 Normal Saline - IV 50 mls/hr ASDIR [facility] Administration Insulin Aspart 1 vial 06/04/17 16:30 06/05/17 11:06 Novolog Vial Sliding Scale - SQ Not Given TIDAC [facility] Protocol Nystatin 1 applic 06/04/17 22:00 06/05/17 09:31 Mycostatin Cream - TP 1 applic BID [facility] Administration Ondansetron HCl 4 mg 06/04/17 11:31 Zofran Injection IVPUSH Q6H PRN NAUSEA AND/OR VOMITING Pantoprazole Sodium 40 mg 06/04/17 22:00 06/05/17 09:30 Protonix Iv IVPUSH 40 mg BID [facility] Administration Spironolactone 25 mg 06/05/17 10:00 06/05/17 09:30 Aldactone - PO 25 mg DAILY [facility] Administration Home Medications Medication Instructions Recorded Furosemide [Lasix] 20 mg PO TUTH 05/30/17 Metformin HCl 500 mg PO BID 05/30/17 Rivaroxaban [Xarelto -] 20 mg PO DAILY 05/30/17 Spironolactone 25 mg PO DAILY 05/30/17 Digoxin [Lanoxin -] 0.125 mg PO DAILY 06/05/17 Diltiazem Cd [Cardizem Cd -] 240 mg PO DAILY 06/05/17 PE: per resident's note ECHO: Moderate , MILD AR, ejf 59% cxr: MILD CONGESTION ASSESSMENT AND PLAN: Patient is a 72 yo Female with h/o a-fib on xarelto, chf and COPD admitted to telemetry for having SOB and was found to have hemoglobin of 5.3. Patient is a high risk surgical patient, Surgery and cardiology would like the patient to transfer to tertiary care center since patient is a high risk to surgery due to Cardiac and COPD. Patient has a molding supervisor at [facility] will discuss and arrange possible transfer. # Hyperthyroidusm most likely due to amiodarone repeat TSH level is low, and FT4 is elevated will get endocrine consult and will chec with her own molding supervisor the reason of amiodarone that the patient is on . # Acute DVT of Left common femoral vein: s/p Left LE IVC filter today BY Dr. Zhang( VASCULAR), since patient can't be anticoagulated with Xarelto anymore since presented with severe bleed with hgb of 5.3, and per discussion with GI , patient can't be anticoagulated. off Xarelto. # Acute severe anemia due to acute blood loss , S/P 2 UNIT OF BLOOD TRANSFUSION hemoglobin 5.3-->7.7-->10.8-->10.6 now , Gi AND CARDIO ARE ON THE CASE. s/p Colonoscopy: positive for a mass of 2x2 cm a newly discovered cecum and ascending colon mass on lower endoscopy.Bx rESULT: TUBULAR adenoma, CECUM MASS; VILLOUS ADENOMA; ASCENDING COLON MASSIVE ADENO CA MODERATELy DIFFERENTIATED, LYMPHATIC POLYP. # Acute severe microcytic anemia STABLE NOW s/p 2 units of PRBC, hemoglobin is 7.7-->10.8--10.6 today # Hx of COPD off Bipap now , patient is at her baseline, continue NC # Afib rate controlled OFF Xarelto since was found to have low hemoglobin , and is not a good candidate for Xarelto since has a GI bleed and was found to have bleeding at the site where polypectomy was done and the site is ulcerated ; discussed with GI and as per GI patient can't be anticoagulated. # Hx of DVT s/o IVC filter on the left side since can't be anticoagulated , off Xarelto # T2DM on Metformin hold it for now, sliding scale with coverage continue. # ARF creatinine improving 1.5 today due to acute blood loss, continue to hold Metformin, s/p transfusion , repeat H/H, monitor # Morbid Obesity DVT px: Off Xarelto, continue to hold since patient has GI bleed.
[2017-06-05] MEDS ORDERED: FUROSEMIDE 40 MG/4 ML INJECTABLE VIAL IVPUSH ONE (14:52)
[2017-06-05] MEDS: ALBUTEROL SO4 2.5/IPRATROPIUM 0.5 INH SOL 3 ML VIAL.NEB. NEB PRN (15:20)
--- NOTE | 2017-06-05 20:28 | PN ---
Progress Note (short form) - Note Progress Note: Pt seen and examined. She denies any complains O/E: general: NAD HEENT: NCAT Cor:RRR lungs: poor inspiratory effort abd:Obese Extremities:++edema, chronic changes. Last Vital Signs Temp Pulse Resp BP Pulse Ox 99.1 F 65 20 138/51 95 06/05/17 17:00 06/05/17 17:00 06/05/17 17:00 06/05/17 17:00 06/05/17 11:31 CBC, BMP 06/05/17 06:30 06/05/17 06:30 Current Medications Generic Name Dose Route Start Last Admin Trade Name Freq PRN Reason Stop Dose Admin Albuterol/Ipratropium 1 amp 06/04/17 11:50 06/05/17 15:20 Duoneb - NEB 1 amp Q6H PRN Administration SHORTNESS OF BREATH Atorvastatin Calcium 20 mg 06/04/17 22:00 06/04/17 22:13 Lipitor - PO 20 mg HS [facility] Administration Digoxin 0.125 mg 06/06/17 10:00 Lanoxin - PO DAILY [facility] Diltiazem HCl 240 mg 06/06/17 10:00 Cardizem Cd - PO DAILY [facility] Emollient Ointment 1 applic 06/04/17 22:00 06/05/17 09:30 Aquaphor - TP 1 applic BID [facility] Administration Sodium Chloride 1,000 mls @ 50 mls/hr 06/05/17 09:45 06/05/17 09:45 Normal Saline - IV 50 mls/hr ASDIR [facility] Administration Insulin Aspart 1 vial 06/04/17 16:30 06/05/17 16:39 Novolog Vial Sliding Scale - SQ Not Given TIDAC [facility] Protocol Nystatin 1 applic 06/04/17 22:00 06/05/17 09:31 Mycostatin Cream - TP 1 applic BID [facility] Administration Ondansetron HCl 4 mg 06/04/17 11:31 Zofran Injection IVPUSH Q6H PRN NAUSEA AND/OR VOMITING Pantoprazole Sodium 40 mg 06/04/17 22:00 06/05/17 09:30 Protonix Iv IVPUSH 40 mg BID [facility] Administration Spironolactone 25 mg 06/05/17 10:00 06/05/17 09:30 Aldactone - PO 25 mg DAILY [facility] Administration Newly diagnosed colon adeno in a 72 year old with multiple co-morbidities. Staging w.u not done as pt with Cr of 1.7. Primary team considering transfer to [place] If stays in house will recommend CT c/a/p with PO contrast the least . CEA pending. Also has DVT , post IVC filter placement , not on AC due to the mass, but crit stable ??need to consider ppx doses of lovenox. call with questions.
[2017-06-05 21:12] LABS: ANION GAP 8 (8-16); BLOOD UREA NITROGEN 26 mg/dL (7-18); CALCIUM 7.8 mg/dL (8.5-10.1); CHLORIDE 105 mmol/L (98-107); CO2 26 mmol/L (21-32); GLUCOSE,RANDOM 114 mg/dL (74-106); POTASSIUM 4.1 mmol/L (3.5-5.1); SODIUM 139 mmol/L (136-145)
[2017-06-05 21:13] LABS: CREATININE 1.4 mg/dL (0.55-1.02)
[2017-06-05] MEDS: ATORVASTATIN CA 20 MG TABLET (FP) PO SCH (22:52)
[2017-06-06] MEDS: ALBUTEROL SO4 2.5/IPRATROPIUM 0.5 INH SOL 3 ML VIAL.NEB. NEB PRN (06:20)
[2017-06-06] MEDS: INSULIN SLIDING SCALE (NOVOLOG) 1 VIAL SQ SCH ×3 (06:21→16:22)
[2017-06-06 07:14] LABS: BASO % 0.9 % (0-2.0); EOS % 3.6 % (0-4.5); HEMOGLOBIN 10.5 GM/dL (10.7-15.3); LYMPH % 6.3 % (8-40); MCH 26.3 pg (25.7-33.7); MCHC 32.7 g/dl (32.0-36.0); MEAN CELL VOLUME 80.5 fl (80-96); MEAN PLT VOLUME 8.8 fl (7.5-11.1); MONO % 8.1 % (3.8-10.2); NEUT % 81.1 % (42.8-82.8); PLATELET COUNT 178 K/MM3 (134-434); RBC 3.98 M/mm3 (3.60-5.2); RDW 23.7 % (11.6-15.6); WHITE BLOOD COUNT 7.5 K/mm3 (4.0-10.0)
[2017-06-06 07:24] LABS: ALBUMIN 2.9 g/dl (3.4-5.0); ANION GAP 8 (8-16); BLOOD UREA NITROGEN 27 mg/dL (7-18); CALCIUM 7.6 mg/dL (8.5-10.1); CHLORIDE 106 mmol/L (98-107); CO2 26 mmol/L (21-32); GLUCOSE,RANDOM 127 mg/dL (74-106); POTASSIUM 4.2 mmol/L (3.5-5.1); SGOT/AST 15 U/L (15-37); SODIUM 140 mmol/L (136-145)
[2017-06-06 07:27] LABS: ALK PHOS 67 U/L (45-117); CREATININE 1.4 mg/dL (0.55-1.02); SGPT/ALT 7 U/L (12-78); TOT PROT 5.3 g/dl (6.4-8.2)
[2017-06-06] MEDS: SPIRONOLACTONE 25 MG TABLET (FP) PO SCH (09:53)
[2017-06-06] MEDS: PANTOPRAZOLE SODIUM 40 MG VIAL IVPUSH SCH ×2 (09:53→22:55)
[2017-06-06] MEDS: NYSTATIN 100,000 UNIT/GM TOPICAL CREAM 15 GM TUBE TP SCH ×2 (09:54→22:54)
[2017-06-06] MEDS: MINERAL OIL/PET HY-PHL TOPICAL OINTMENT 454 GM JAR TP SCH ×2 (09:54→22:54)
[2017-06-06] MEDS ORDERED: DIGOXIN 0.125 MG TABLET (FP) PO SCH (10:00)
--- NOTE | 2017-06-06 10:34 | PN ---
Progress Note (short form) - Note Progress Note: s: no cp dizzy palps; mild sob o: Vital Signs Period Temp Pulse Resp BP Sys/[place] Pulse Ox Last 24 Hr 97.4 F-99.1 F 60-74 20-20 123-143/51-62 94-95 nad no jvd rrr s1s2 no r/g, + murmur cta bl nl eff pitting/nonpitting edema le bl with chronic stasis changes abd nt nd pos bs no jaundice diaphoresis Current Medications Generic Name Dose Route Start Last Admin Trade Name Freq PRN Reason Stop Dose Admin Albuterol/Ipratropium 1 amp 06/04/17 11:50 06/06/17 06:20 Duoneb - NEB 1 amp Q6H PRN Administration SHORTNESS OF BREATH Atorvastatin Calcium 20 mg 06/04/17 22:00 06/05/17 22:52 Lipitor - PO 20 mg HS RABIA Administration Digoxin 0.125 mg 06/06/17 10:00 06/06/17 09:53 Lanoxin - PO 0.125 mg DAILY RABIA Administration Diltiazem HCl 240 mg 06/06/17 10:00 06/06/17 09:53 Cardizem Cd - PO 240 mg DAILY RABIA Administration Emollient Ointment 1 applic 06/04/17 22:00 06/06/17 09:54 Aquaphor - TP 1 applic BID RABIA Administration Insulin Aspart 1 vial 06/04/17 16:30 06/06/17 06:21 Novolog Vial Sliding Scale - SQ Not Given TIDAC [facility] Protocol Nystatin 1 applic 06/04/17 22:00 06/06/17 09:54 Mycostatin Cream - TP 1 applic BID RABIA Administration Ondansetron HCl 4 mg 06/04/17 11:31 Zofran Injection IVPUSH Q6H PRN NAUSEA AND/OR VOMITING Pantoprazole Sodium 40 mg 06/04/17 22:00 06/06/17 09:53 Protonix Iv IVPUSH 40 mg BID RABIA Administration Spironolactone 25 mg 06/05/17 10:00 06/06/17 09:53 Aldactone - PO 25 mg DAILY RABIA Administration CBC, BMP 06/06/17 05:05 06/06/17 05:05 ecg 05/30/17: sr, rbbb, nl intervals, no st changes cxr: 06/05 images and report reviewed. Mild congestive changes. cxr: mild congestion echo 05/2017: nl lv/rv, mod as (peak/mean gradients 68/36, WOO 1.1. LVOT 2.0, LVOT VTI = 39) a/p: 72 f hx copd, afib, dm, htn, hld, venous insuff/le edema, here with ceja. sob, cp, anemia, acute diast chf: -no signs chf or acs (trop negx3) -likely sxs due to severe anemia with hgb in 5s. After prbcs pt reports feeling better, and feels she is at her copd baseline as far as nonexertional, mild breathlessness - 05/31: received IV lasix 20 mg x 1. -06/02: evidence of decompensated chf with elevated JVD on exam. CXR diffuse markings (without vasc redistribution) = ? interstitial edema. lasix 40mg IVP x 1 given. -06/03: 4100 cc UOP yesterday, wt unchanged. remains with same LE edema and JVD. states drinks a lot of water--rec 2L fluid restriction. lasix 40 mg IVP x 2. - 06/04: Cr worsened on IV lasix, will hold today and reassess lower dose tomorrow. s/p IVC filter placement today. echo pending -assess weights, labs daily - 06/05: patient with slightly worsened creatinine today after holding lasix. gentle maintenance fluids started today. Would recheck bmp in afternoon to assess direction of creatinine IVF considering total body volume overload and mild congestion on cxr, etc.. Consider starting po diuretic regimen tomorrow. May benefit from torsemide over lasix, will start with trial of torsemide 20 mg/ day. -06/06: ivfs off, will start torsemide 20 po qd now aortic stenosis, moderate vs severe: -suspect severe based on phys exam -HOWEVER: echo was performed while pt was severely anemic (hgb 6s-7s that day, ) which often spuriously increases gradients/VTIs--while this may incr VTI in LVOT and across AV proportionally, hence leading to similar WOO estimation, cannot predict that with certainty. Repeat echo pending. - 06/05: discussed with primary team who spoke with her internal consultant. Likely plan for transfer to [place] per his preference even without repeat echo results (echo still pending). pafib: -in sr now -cont amio for now--may need to reconsider in light of new hyperthyroidism-- defer to outpt internal consultant - 06/05 pmd discussed with outpatient internal consultant. He had not prescribed amiodarone and per report patient was taking amiodarone infrequently. Outpatient internal consultant recs stopping amiodarone and resuming prior outpatient dilitazem. -was on xarelto, holding due to severe anemia DVT (L CFV): -AC on hold sec to GIB. now s/p IVC filter 06/04 colon mass, preop CV eval: -gi eval found colon mass, likely will need surgery. dr garcia consulted. -Revised CV Risk Index = 1, unknown functional status -currently suspect mildly decompensated chf--optimizing this prior to surgery -suspect severe but this needs to be confirmed with repeat echo, as disc'd above. -if severe present, this will impart high risk of periop CV complications. if appears moderate, her risk will be in the intermediate range. -appreciate dr garcia note re: surgery at tertiary care center. -d/w'd dr zamarripa 06/03: in light of chf, severe (or borderline), new DVT, hyperthyroidism in setting of pt on prior amio, agree her risk of periop CHF is high /and would be ideal for her to be in a tertiary care center where [place] internal consultant is [place] [place], Dr. Larios) in case of complications... - 06/05 discussed with pmd. possible plan for [place] [facility] [place] of her outpatient internal consultant as mentioned above. copd: -pt reports this dx, with chronic sob she attributes -stable, no signs a.e. renal insufficiency: -creat 1.5-1.6 here, no baseline data available -trend labs daily for now, monitor with changing diuretic regimen. repeat bmp this afternoon as mentioned above htn: -reasonably controlled -cont aldactone. starting diltiazem 06/05, monitor. hyperthyroidism: -low TSH, elevated free T4 - pt on amiodarone. management per hospitalist/ endocrine venous insuff/le edema: -worsened of late ? due to chf - currently stable. cardiac gerber stable for transfer
[2017-06-06] MEDS ORDERED: TORSEMIDE 20 MG TABLET (FP) PO ONE (10:41)
--- NOTE | 2017-06-06 10:42 | PN ---
Progress Note, Physician History of Present Illness: No events. Pre-op eval and optimization in progress. - Current Medication List Current Medications: Active Medications Albuterol/Ipratropium (Duoneb -) 1 amp NEB Q6H PRN PRN Reason: SHORTNESS OF BREATH Last Admin: 06/06/17 06:20 Dose: 1 amp Atorvastatin Calcium (Lipitor -) 20 mg PO HS [facility] Last Admin: 06/05/17 22:52 Dose: 20 mg Digoxin (Lanoxin -) 0.125 mg PO DAILY [facility] Last Admin: 06/06/17 09:53 Dose: 0.125 mg Diltiazem HCl (Cardizem Cd -) 240 mg PO DAILY [facility] Last Admin: 06/06/17 09:53 Dose: 240 mg Emollient Ointment (Aquaphor -) 1 applic TP BID [facility] Last Admin: 06/06/17 09:54 Dose: 1 applic Insulin Aspart (Novolog Vial Sliding Scale -) 1 vial SQ TIDAC [facility] PRN Reason: Protocol Last Admin: 06/06/17 06:21 Dose: Not Given Nystatin (Mycostatin Cream -) 1 applic TP BID [facility] Last Admin: 06/06/17 09:54 Dose: 1 applic Ondansetron HCl (Zofran Injection) 4 mg IVPUSH Q6H PRN PRN Reason: NAUSEA AND/OR VOMITING Pantoprazole Sodium (Protonix Iv) 40 mg IVPUSH BID [facility] Last Admin: 06/06/17 09:53 Dose: 40 mg Spironolactone (Aldactone -) 25 mg PO DAILY [facility] Last Admin: 06/06/17 09:53 Dose: 25 mg Torsemide (Demadex -) 20 mg PO DAILY [facility] - Objective Vital Signs: Vital Signs Temperature 98.3 F 06/06/17 06:00 Pulse Rate 69 06/06/17 09:53 Respiratory Rate 20 06/06/17 08:56 Blood Pressure 130/54 06/06/17 08:56 O2 Sat by Pulse Oximetry (%) 94 L 06/06/17 08:54 Constitutional: Yes: No Distress, Calm Gastrointestinal: Yes: Normal Bowel Sounds, Soft, Abdomen, Obese. No: Distention, Rectal Bleeding, Tenderness, Vomiting Labs: CBC, BMP 06/06/17 05:05 06/06/17 05:05 INR, PTT INR 1.16 (0.82-1.09) H 05/31/17 09:40 CBCD WBC 7.5 K/mm3 (4.0-10.0) 06/06/17 05:05 RBC 3.98 M/mm3 (3.60-5.2) 06/06/17 05:05 Hgb 10.5 GM/dL (10.7-15.3) L 06/06/17 05:05 Hct 32.0 % (32.4-45.2) L 06/06/17 05:05 MCV 80.5 fl (80-96) 06/06/17 05:05 MCHC 32.7 g/dl (32.0-36.0) 06/06/17 05:05 RDW 23.7 % (11.6-15.6) H 06/06/17 05:05 Plt Count 178 K/MM3 (134-434) 06/06/17 05:05 MPV 8.8 fl (7.5-11.1) 06/06/17 05:05 CMP Sodium 140 mmol/L (136-145) 06/06/17 05:05 Potassium 4.2 mmol/L (3.5-5.1) 06/06/17 05:05 Chloride 106 mmol/L (98-107) 06/06/17 05:05 Carbon Dioxide 26 mmol/L (21-32) 06/06/17 05:05 Anion Gap 8 (8-16) 06/06/17 05:05 BUN 27 mg/dL (7-18) H 06/06/17 05:05 Creatinine 1.4 mg/dL (0.55-1.02) H 06/06/17 05:05 Creat Clearance w eGFR 36.76 (>60) 06/06/17 05:05 Calcium 7.6 mg/dL (8.5-10.1) L 06/06/17 05:05 Total Bilirubin 1.0 mg/dL (0.2-1.0) 06/06/17 05:05 AST 15 U/L (15-37) 06/06/17 05:05 ALT 7 U/L (12-78) L 06/06/17 05:05 Alkaline Phosphatase 67 U/L (45-117) 06/06/17 05:05 Total Protein 5.3 g/dl (6.4-8.2) L 06/06/17 05:05 Albumin 2.9 g/dl (3.4-5.0) L 06/06/17 05:05 Problem List - Problems (1) Colonic mass Code(s): K63.9 - DISEASE OF INTESTINE, UNSPECIFIED (2) Cecum mass Code(s): K63.9 - DISEASE OF INTESTINE, UNSPECIFIED Assessment/Plan Pre-op optimization as per Sx team Renal to advise on renal function optimization prior to CT C/A/P with contrast
--- NOTE | 2017-06-06 13:01 | PN ---
Progress Note, Physician Chief Complaint: right colon mass History of Present Illness: 72 yo female PMH COPD(home oxygen, concentrator), Afib (on xarelto), DM type 2 ( on metformin) , HTN, morbid obesity, HLD, peripheral venous stasis, h/o DVT who presented to the ED with worsening sob, dyspnea and generalized weakness and was admitted to telemetry for further evaluation. s/p IVC filter placement for Left LE DVT, awaiting a repeat echocardiogram to better characterize her ( moderate vs. severe) and current CHF. - Current Medication List Current Medications: Active Medications Albuterol/Ipratropium (Duoneb -) 1 amp NEB Q6H PRN PRN Reason: SHORTNESS OF BREATH Last Admin: 06/06/17 06:20 Dose: 1 amp Atorvastatin Calcium (Lipitor -) 20 mg PO HS [facility] Last Admin: 06/05/17 22:52 Dose: 20 mg Digoxin (Lanoxin -) 0.125 mg PO DAILY [facility] Last Admin: 06/06/17 09:53 Dose: 0.125 mg Diltiazem HCl (Cardizem Cd -) 240 mg PO DAILY [facility] Last Admin: 06/06/17 09:53 Dose: 240 mg Emollient Ointment (Aquaphor -) 1 applic TP BID [facility] Last Admin: 06/06/17 09:54 Dose: 1 applic Insulin Aspart (Novolog Vial Sliding Scale -) 1 vial SQ TIDAC [facility] PRN Reason: Protocol Last Admin: 06/06/17 06:21 Dose: Not Given Nystatin (Mycostatin Cream -) 1 applic TP BID [facility] Last Admin: 06/06/17 09:54 Dose: 1 applic Ondansetron HCl (Zofran Injection) 4 mg IVPUSH Q6H PRN PRN Reason: NAUSEA AND/OR VOMITING Pantoprazole Sodium (Protonix Iv) 40 mg IVPUSH BID [facility] Last Admin: 06/06/17 09:53 Dose: 40 mg Spironolactone (Aldactone -) 25 mg PO DAILY [facility] Last Admin: 06/06/17 09:53 Dose: 25 mg Torsemide (Demadex -) 20 mg PO DAILY [facility] - Objective Vital Signs: Vital Signs Temperature 98.3 F 06/06/17 06:00 Pulse Rate 69 06/06/17 09:53 Respiratory Rate 20 06/06/17 08:56 Blood Pressure 130/54 06/06/17 08:56 O2 Sat by Pulse Oximetry (%) 94 L 06/06/17 08:54 Vital Signs Period Temp Pulse Resp BP Sys/[place] Pulse Ox Last 24 Hr 97.8 F-98.7 F 58-63 20-20 115-144/58-82 94-94 Constitutional: Yes: No Distress, Calm, Obese Eyes: Yes: Conjunctiva Clear, EOM Intact HENT: Yes: Atraumatic, Normocephalic Neck: Yes: Supple, Trachea Midline Cardiovascular: Yes: Regular Rate and Rhythm, S1, S2 Respiratory: Yes: Regular, CTA Bilaterally. No: Cough Gastrointestinal: Yes: Normal Bowel Sounds, Soft. No: Tenderness ...Rectal Exam: Yes: Deferred Genitourinary: No: CVA Tenderness - Left, CVA Tenderness - Right Extremities: Yes: Calf Tenderness (left). No: Cool, Cyanosis Neurological: Yes: Alert, Oriented Psychiatric: Yes: Alert, Oriented Labs: CBC, BMP 06/06/17 05:05 06/06/17 05:05 INR, PTT INR 1.16 (0.82-1.09) H 05/31/17 09:40 Problem List - Problems (1) Colon adenocarcinoma Assessment/Plan: 72 yo female MMP with chronic blood loss anemia, weakness, and a newly diagnosed invasive adenocarcinoma in the ascending colon. She is ammenable to the idea of having surgery if it is indicated but expressed concern about her fitness for such a procedure. Cardiology evaluation cardiac optimization given , high perioperative risk for an event based on severe and decompensated CHF. She had an acute left common femoral DVT, s/p filter placement. We had a long discussion about her diagnosis and treatment options. She understands and would like to wait for the results if her heart studies before making a final decision about surgery. The primary team plant to transfer her to [place] for intervention with her senior consultant. She will have her colon resection there. Preoperative optimization Appreciate and agree with Cardiology and Pulmonary reccomendations Nutritional optimization Will discuss with primary team Code(s): C18.9 - MALIGNANT NEOPLASM OF COLON, UNSPECIFIED (2) Cecum mass Code(s): K63.9 - DISEASE OF INTESTINE, UNSPECIFIED (3) Anemia Code(s): D64.9 - ANEMIA, UNSPECIFIED Qualifiers: Iron deficiency anemia type: chronic blood loss (4) COPD (chronic obstructive pulmonary disease) Code(s): J44.9 - CHRONIC OBSTRUCTIVE PULMONARY DISEASE, UNSPECIFIED (5) Morbid obesity due to excess calories Code(s): E66.01 - MORBID (SEVERE) OBESITY DUE TO EXCESS CALORIES
--- NOTE | 2017-06-06 16:50 | PN ---
Physical Exam: SUBJECTIVE: Patient seen and examined at bedside. denies any fever, chills , sat 96% on 4 L NC. leg edema is improving slowly, had one episode of diarrhea last night. denies any chest pain or palpitation, tele with some PVCs. OBJECTIVE: Vital Signs Period Temp Pulse Resp BP Sys/[place] Pulse Ox Last 24 Hr 97.4 F-99.1 F 55-69 20-20 123-138/51-62 94-94 ENERAL: The patient is awake, alert, and fully oriented, in no acute distress. HEAD: Normal with no signs of trauma. EYES: sclera anicteric, conjunctiva clear. ENT: dry mucous membranes. NECK: supple.+ JVD LUNGS:B/l base crackles, no wheezes, no crackles, no accessory muscle use. HEART: Regular rate and rhythm, S1, S2 3/6 systolic murmur LUSB , no rub or gallop. ABDOMEN: Obese Soft, nontender, nondistended, normoactive bowel sounds, no guarding, no rebound. EXTREMITIES: 2+ pulses, warm, well-perfuse,+1 edema with erythema and peripheral venous changes NEUROLOGICAL: NO focal deficit. Normal speech, gait not observed. PSYCH: Normal mood, normal affect. SKIN: Warm, dry,erythematous rash beneath the breast Laboratory Results - last 24 hr 06/05/17 06/05/17 06/06/17 16:38 19:45 05:05 WBC RBC Hgb Hct MCV MCH MCHC RDW Plt Count MPV Neutrophils % Lymphocytes % Monocytes % Eosinophils % Basophils % Sodium 139 Potassium 4.1 Chloride 105 Carbon Dioxide 26 Anion Gap 8 BUN 26 H Creatinine 1.4 H Creat Clearance w eGFR POC Glucometer 113 Random Glucose 114 H Calcium 7.8 L Total Bilirubin AST ALT Alkaline Phosphatase Total Protein Albumin TSH Cancelled Free T4 06/06/17 06/06/17 06/06/17 05:05 05:05 06:20 WBC 7.5 RBC 3.98 Hgb 10.5 L Hct 32.0 L MCV 80.5 MCH 26.3 MCHC 32.7 RDW 23.7 H Plt Count 178 MPV 8.8 Neutrophils % 81.1 Lymphocytes % 6.3 L Monocytes % 8.1 Eosinophils % 3.6 Basophils % 0.9 Sodium 140 Potassium 4.2 Chloride 106 Carbon Dioxide 26 Anion Gap 8 BUN 27 H Creatinine 1.4 H Creat Clearance w eGFR 36.76 POC Glucometer 138 Random Glucose 127 H Calcium 7.6 L Total Bilirubin 1.0 AST 15 ALT 7 L Alkaline Phosphatase 67 Total Protein 5.3 L Albumin 2.9 L TSH 0.07 L Free T4 1.92 H 06/06/17 16:17 WBC RBC Hgb Hct MCV MCH MCHC RDW Plt Count MPV Neutrophils % Lymphocytes % Monocytes % Eosinophils % Basophils % Sodium Potassium Chloride Carbon Dioxide Anion Gap BUN Creatinine Creat Clearance w eGFR POC Glucometer 134 Random Glucose Calcium Total Bilirubin AST ALT Alkaline Phosphatase Total Protein Albumin TSH Free T4 Active Medications Generic Name Dose Route Start Last Admin Trade Name Freq PRN Reason Stop Dose Admin Albuterol/Ipratropium 1 amp 06/04/17 11:50 06/06/17 06:20 Duoneb - NEB 1 amp Q6H PRN Administration SHORTNESS OF BREATH Atorvastatin Calcium 20 mg 06/04/17 22:00 06/05/17 22:52 Lipitor - PO 20 mg HS RABIA Administration Digoxin 0.125 mg 06/06/17 10:00 06/06/17 09:53 Lanoxin - PO 0.125 mg DAILY RABIA Administration Diltiazem HCl 240 mg 06/06/17 10:00 06/06/17 09:53 Cardizem Cd - PO 240 mg DAILY RABIA Administration Emollient Ointment 1 applic 06/04/17 22:00 06/06/17 09:54 Aquaphor - TP 1 applic BID RABIA Administration Insulin Aspart 1 vial 06/04/17 16:30 06/06/17 16:22 Novolog Vial Sliding Scale - SQ Not Given TIDAC [facility] Protocol Methimazole 10 mg 06/06/17 16:15 Tapazole - PO DAILY RABIA Nystatin 1 applic 06/04/17 22:00 06/06/17 09:54 Mycostatin Cream - TP 1 applic BID RABIA Administration Ondansetron HCl 4 mg 06/04/17 11:31 Zofran Injection IVPUSH Q6H PRN NAUSEA AND/OR VOMITING Pantoprazole Sodium 40 mg 06/04/17 22:00 06/06/17 09:53 Protonix Iv IVPUSH 40 mg BID RABIA Administration Spironolactone 25 mg 06/05/17 10:00 06/06/17 09:53 Aldactone - PO 25 mg DAILY RABIA Administration Torsemide 20 mg 06/07/17 10:00 Demadex - PO DAILY RABIA CBC, BMP 06/06/17 05:05 06/06/17 05:05 ASSESSMENT/PLAN: 2 year old female with pmhx of copd(home o2 ), Afib (on xarelto), DMII, HTN, HLD , peripheral venous stasis, h/o DVT who presented to the ED with worsening sob, dyspnea and generalized weakness was found to have hgb of 5.3 and was admitted to [facility] for further evaluation. # Sever symptomatic microcytic anemia 2/2 cecum mass and fragile polyp * presented with hgb 5.3 , S/P 4 units PRBCS * monitor H/H daily * Iron studies , b12, folic acid , * GI consult S/P EGD/ Colonoscopy: cecal mass,sessil polyps with high risk of bleeding #Colon mass: * colonoscopy:cecum mass 2x2 mass in ascending colon, sessile polyp in transverse colon and two polyps in rectum. Biopsies were taken. * Dr Angel surgery was consulted. agrred with transfer to [facility] * CT scan Chest/ Abdomen/ Pelvis pending * Medical oncology for staging * CEA pending * pathology report:Tubular adenoma transverse colon, cecum with villous adenoma, ascending colon invasive adenocarcioma,hyperplastic polyp in rectum. * Pending colon mass pathology * High risk for surgery in term of moderate to sever , CHF, Afib on amiodaron , Hyperthyroidism , new onset DVT # H/O DVT , * hold on xarelto in term of possible bleeding * US lower ext with clot in left common femoral vein * can not due AC now due to risk of bleeding * S/P IVC filter placed by vascular * consider prophylactic dose of Lovenox per oncology Dr Tompkins #moderate to sever Aortic stenosis: * repeated ECHO with moderate to sever stenosis * will transfer to [place] for possible valvuloplasty # Hyperthyroidism * low TSH, elevated Ft4 , normal Ft3 * DR huang consulted recommend thyroid US and Methemazole 10 mg QD daily * Thyroglobulin and TSI, IL6 pending # Acute on chronic respiratory failure , resolving , * likely due to anemia vs COPD exacerbation vs CHF exacerbation unlikely * O2 as needed to keep O2 >89% * Duo-neb PRN * CX ray with cardiomegaly and mild congestion * cont spirnolactone 25 mg po daily , * ECHO with moderate to sever # JOHNY on chronic CKD , resolving * S/P 4 units PRBCS * Monitor bun/cr * avoid nephrotoxic agents # AFIB /CHF * rate controlled * DC Amiodarone 200 mg po daily due to hyperthyroidism * start her on deltizim 240 mg po daily as discussed with her title manager * hold xarelto due to possible bleeding * repeat Echo cardiogram reviewed * daily weight , I&O, 2L water restriction , LASIX as needed # DMII * last HGBA1c 5.2 per pt * Hold metformin * ISS * BGM TID AC * Diabetic diet # Morbid obesity * BMO 53.7 * consulted about losing weight and modified life style # HTN * lasix 20 mg PRN * continue Spirnolactone 25 mg po daily # HLD * Lipitor 20 mg po daily # Tinea corporis * beneath the breast * Nystain 1% cream topical TID # peripheral venous changes , stable * chronic for the last 2 years * hold xarelto * apply aquaphor TP BID # H/O left femoral fx 2 years ago, * no surgery was performed , was bed bounded for 3 months after that * monitor # FEN * No standing fluids * monitor BMP * low sodium diabetic diet # Proph * DVTS: SCDS , no chemical prop due to risk of bleeding * GI: protonix 40 mg IV BID # Dispo * admit to tele ,Monitor CBC daily ,Full code ,pending transfer to [place]. Visit type - Emergency Visit Emergency Visit: Yes ED Registration Date: 05/30/17 Care time: The patient presented to the Emergency Department on the above date and was hospitalized for further evaluation of their emergent condition. - New Patient This patient is new to me today: No - Critical Care Critical Care patient: No
[2017-06-06] MEDS: METHIMAZOLE 10 MG TABLET (FP) PO SCH (18:08)
--- NOTE | 2017-06-06 18:09 | PN ---
Teaching Attending Note Name of Resident: Taurus Anderson ATTENDING PHYSICIAN STATEMENT I saw and evaluated the patient. I reviewed the resident's note and discussed the case with the resident. I agree with the resident's findings and plan as documented. SUBJECTIVE: no pain. has resting SOB . no cough . no BM yesterday OBJECTIVE: NAD, awake ,alert CV: RRR, 5/6 SM at base and LLSB LUngs : CTAB Abd: soft, NT, ND < NL BS Ext: erythema , skin thickening and mild hyperpigmentation on Legs. pitting edema ASSESSMENT AND PLAN: 72 y/o lady with h/o HTN, A fib, COPD , D CHF, DVT/PE and other medical problems who presneted with SOB and was found t have severe iron def anemia. 1- Severe iron def anemia, 2/2 invasive adenocarcinoma of colon. stable HB contt o hold AC 2- acute Diastolic heart failure : more SOB today - torsemide resumed today - monitor I&O 3- Invasive adenocarcinoma of colon: - will need surgery - can't obtain CT with contrast for staging. will obtain CT C/A/P w/o contrast - team d/w [place] outpatient pharmacy manager . - await call from Transfer center to arrange for Tx for valvuloplasty before colon resection 4- P A fib: - dc amio. appreciate Card help - resume cardizem - off AC despite risk of stroke due to severe anemia. - resumption of her xarelto to be revisited after her surgical resection of tumor 5- acute DVT : s/p IVC filter . can't anticoagulate 6- DM : hold metformin and cont SSI 7- JOHNY on CKD : cont to monitor with diuresis 5- dispo : pending transfer to [facility]
[2017-06-06] MEDS: ATORVASTATIN CA 20 MG TABLET (FP) PO SCH (23:36)
[2017-06-07] MEDS: INSULIN SLIDING SCALE (NOVOLOG) 1 VIAL SQ SCH ×3 (06:20→17:01)
[2017-06-07 06:36] LABS: HEMATOCRIT 32.4 % (32.4-45.2); HEMOGLOBIN 10.4 GM/dL (10.7-15.3); MCH 26.3 pg (25.7-33.7); MCHC 32.1 g/dl (32.0-36.0); MEAN PLT VOLUME 9.1 fl (7.5-11.1); PLATELET COUNT 183 K/MM3 (134-434); RBC 3.95 M/mm3 (3.60-5.2); RDW 23.6 % (11.6-15.6); WHITE BLOOD COUNT 7.1 K/mm3 (4.0-10.0)
[2017-06-07] MEDS: ALBUTEROL SO4 2.5/IPRATROPIUM 0.5 INH SOL 3 ML VIAL.NEB. NEB PRN (07:26)
[2017-06-07 08:01] LABS: CHLORIDE 106 mmol/L (98-107); POTASSIUM 4.4 mmol/L (3.5-5.1); SODIUM 143 mmol/L (136-145)
[2017-06-07 08:10] LABS: ANION GAP 11 (8-16); BLOOD UREA NITROGEN 24 mg/dL (7-18); CO2 26 mmol/L (21-32); CREATININE 1.4 mg/dL (0.55-1.02); GLUCOSE,RANDOM 120 mg/dL (74-106)
[2017-06-07] MEDS: TORSEMIDE 20 MG TABLET (FP) PO SCH (09:59)
[2017-06-07] MEDS: PANTOPRAZOLE SODIUM 40 MG VIAL IVPUSH SCH ×2 (09:59→22:00)
[2017-06-07] MEDS: SPIRONOLACTONE 25 MG TABLET (FP) PO SCH (10:00)
[2017-06-07] MEDS: METHIMAZOLE 10 MG TABLET (FP) PO SCH (10:00)
[2017-06-07] MEDS: NYSTATIN 100,000 UNIT/GM TOPICAL CREAM 15 GM TUBE TP SCH ×2 (10:00→22:03)
[2017-06-07] MEDS: MINERAL OIL/PET HY-PHL TOPICAL OINTMENT 454 GM JAR TP SCH ×2 (10:00→22:05)
--- NOTE | 2017-06-07 11:49 | PN ---
Progress Note (short form) - Note Progress Note: s: no cp dizzy palps sob o: Vital Signs Period Temp Pulse Resp BP Sys/[place] Pulse Ox Last 24 Hr 97.4 F-98.6 F 55-61 20-20 115-149/55-78 94 nad no jvd rrr s1s2 no r/g, + murmur cta bl nl eff pitting/nonpitting edema le bl with chronic stasis changes abd nt nd pos bs no jaundice diaphoresis Current Medications Generic Name Dose Route Start Last Admin Trade Name Freq PRN Reason Stop Dose Admin Albuterol/Ipratropium 1 amp 06/04/17 11:50 06/07/17 07:26 Duoneb - NEB 1 amp Q6H PRN Administration SHORTNESS OF BREATH Atorvastatin Calcium 20 mg 06/04/17 22:00 06/06/17 23:36 Lipitor - PO 20 mg HS RABIA Administration Digoxin 0.125 mg 06/06/17 10:00 06/06/17 09:53 Lanoxin - PO 0.125 mg DAILY RABIA Administration Diltiazem HCl 240 mg 06/06/17 10:00 06/07/17 10:00 Cardizem Cd - PO 240 mg DAILY RABIA Administration Emollient Ointment 1 applic 06/04/17 22:00 06/07/17 10:00 Aquaphor - TP 1 applic BID RABIA Administration Insulin Aspart 1 vial 06/04/17 16:30 06/07/17 06:20 Novolog Vial Sliding Scale - SQ Not Given TIDAC RABIA Protocol Methimazole 10 mg 06/06/17 16:15 06/07/17 10:00 Tapazole - PO 10 mg DAILY RABIA Administration Nystatin 1 applic 06/04/17 22:00 06/07/17 10:00 Mycostatin Cream - TP 1 applic BID RABIA Administration Ondansetron HCl 4 mg 06/04/17 11:31 Zofran Injection IVPUSH Q6H PRN NAUSEA AND/OR VOMITING Pantoprazole Sodium 40 mg 06/04/17 22:00 06/07/17 09:59 Protonix Iv IVPUSH 40 mg BID RABIA Administration Spironolactone 25 mg 06/05/17 10:00 06/07/17 10:00 Aldactone - PO 25 mg DAILY RABIA Administration Torsemide 20 mg 06/07/17 10:00 06/07/17 09:59 Demadex - PO 20 mg DAILY RABIA Administration CBC, BMP 06/07/17 05:05 06/07/17 05:05 ecg 05/30/17: sr, rbbb, nl intervals, no st changes cxr: 06/05 images and report reviewed. Mild congestive changes. cxr: mild congestion echo 05/2017: nl lv/rv, mod as (peak/mean gradients 68/36, WOO 1.1. LVOT 2.0, LVOT VTI = 39) repeat echo 05/2017: mod-sev , mild-mod ar tele: sr a/p: 72 f hx copd, afib, dm, htn, hld, venous insuff/le edema, here with ceja. sob, cp, anemia, acute diast chf: -no signs chf or acs (trop negx3) -likely sxs due to severe anemia with hgb in 5s. After prbcs pt reports feeling better, and feels she is at her copd baseline as far as nonexertional, mild breathlessness - 05/31: received IV lasix 20 mg x 1. -06/02: evidence of decompensated chf with elevated JVD on exam. CXR diffuse markings (without vasc redistribution) = ? interstitial edema. lasix 40mg IVP x 1 given. -06/03: 4100 cc UOP yesterday, wt unchanged. remains with same LE edema and JVD. states drinks a lot of water--rec 2L fluid restriction. lasix 40 mg IVP x 2. - 06/04: Cr worsened on IV lasix, will hold today and reassess lower dose tomorrow. s/p IVC filter placement today. echo pending -assess weights, labs daily - 06/05: patient with slightly worsened creatinine today after holding lasix. gentle maintenance fluids started today. Would recheck bmp in afternoon to assess direction of creatinine IVF considering total body volume overload and mild congestion on cxr, etc.. Consider starting po diuretic regimen tomorrow. May benefit from torsemide over lasix, will start with trial of torsemide 20 mg/ day. -06/06: ivfs off, will start torsemide 20 po qd now -06/07: cont po torsemide aortic stenosis: -mod-sev as -no signs chf -monitor for now pafib: -in sr now -cont amio for now--may need to reconsider in light of new hyperthyroidism-- defer to outpt spinning doffer - 06/05 pmd discussed with outpatient spinning doffer. He had not prescribed amiodarone and per report patient was taking amiodarone infrequently. Outpatient spinning doffer recs stopping amiodarone and resuming prior outpatient dilitazem. -was on xarelto, holding due to severe anemia DVT (L CFV): -AC on hold sec to GIB. now s/p IVC filter / colon mass, preop CV eval: -gi eval found colon mass, likely will need surgery. dr garcia consulted. -Revised CV Risk Index = 1, unknown functional status -currently suspect mildly decompensated chf--optimizing this prior to surgery -suspect severe but this needs to be confirmed with repeat echo, as disc'd above. -if severe present, this will impart high risk of periop CV complications. if appears moderate, her risk will be in the intermediate range. -appreciate dr garcia note re: surgery at tertiary care center. -d/w'd dr zamarripa 06/03: in light of chf, severe (or borderline), new DVT, hyperthyroidism in setting of pt on prior amio, agree her risk of periop CHF is high /and would be ideal for her to be in a tertiary care center where her spinning doffer is ([facility] [place] Eliud Jones, Dr. Larios) in case of complications... - 06/05 discussed with pmd. possible plan [place] [facility] [place] of [place] outpatient spinning doffer as mentioned above. copd: -pt reports this dx, with chronic sob she attributes -stable, no signs a.e. renal insufficiency: -creat 1.5-1.6 here, no baseline data available -trend labs daily for now htn: -reasonably controlled -cont aldactone. starting diltiazem 06/05, monitor. hyperthyroidism: -low TSH, elevated free T4 - pt on amiodarone. management per hospitalist/ endocrine venous insuff/le edema: -worsened of late ? due to chf - currently stable. cardiac gerber stable for transfer
--- NOTE | 2017-06-07 13:29 | PN ---
Teaching Attending Note Name of Resident: Taurus Anderson ATTENDING PHYSICIAN STATEMENT I saw and evaluated the patient. I reviewed the resident's note and discussed the case with the resident. I agree with the resident's findings and plan as documented. SUBJECTIVE: no fever or chills, SOB is better . No abd pain OBJECTIVE: NAD, awake ,alert CV: RRR, 5/6 SM at base and LLSB Lungs : CTAB Abd: soft, NT, ND , NL BS Ext: erythema, skin thickening and mild hyperpigmentation on Legs. pitting edema improved form yesterday ASSESSMENT AND PLAN: 72 y/o lady with h/o HTN, A fib, COPD , D CHF, DVT/PE and other medical problems who presneted with SOB and was found t have severe iron def anemia. 1- Severe iron def anemia, 2/2 invasive adenocarcinoma of colon. stable HB cont to hold AC 2- Acute Diastolic heart failure : improved - Cont torsemide - monitor I&O 3- Invasive adenocarcinoma of colon: - will need surgery - CT w/o contrast does not show mets ( thyroid nodules only and adrenal nodule ) - pending transfer to [facility] 4- P A fib: - off amio - cont cardizem - no events on tele - off AC despite risk of stroke due to severe anemia. - resumption of her xarelto to be revisited after her surgical resection of tumor 5- Acute DVT : s/p IVC filter . can't anticoagulate now need f/u on this filter in 3 months 6- DM : hold metformin and cont SSI 7- JOHNY on CKD : cont to monitor with diuresis 5- hyperthyroidism: cont methimazole dispo : pending transfer to [facility]
--- NOTE | 2017-06-07 16:33 | PN ---
Progress Note, Physician History of Present Illness: CT w/o report noted. No events. No bleeding. Pre-op eval and optimization in progress. - Current Medication List Current Medications: Active Medications Albuterol/Ipratropium (Duoneb -) 1 amp NEB Q6H PRN PRN Reason: SHORTNESS OF BREATH Last Admin: 06/07/17 07:26 Dose: 1 amp Atorvastatin Calcium (Lipitor -) 20 mg PO HS [facility] Last Admin: 06/06/17 23:36 Dose: 20 mg Digoxin (Lanoxin -) 0.125 mg PO DAILY [facility] Last Admin: 06/06/17 09:53 Dose: 0.125 mg Diltiazem HCl (Cardizem Cd -) 240 mg PO DAILY [facility] Last Admin: 06/07/17 10:00 Dose: 240 mg Emollient Ointment (Aquaphor -) 1 applic TP BID [facility] Last Admin: 06/07/17 10:00 Dose: 1 applic Insulin Aspart (Novolog Vial Sliding Scale -) 1 vial SQ TIDAC [facility] PRN Reason: Protocol Last Admin: 06/07/17 12:04 Dose: Not Given Methimazole (Tapazole -) 10 mg PO DAILY [facility] Last Admin: 06/07/17 10:00 Dose: 10 mg Nystatin (Mycostatin Cream -) 1 applic TP BID [facility] Last Admin: 06/07/17 10:00 Dose: 1 applic Ondansetron HCl (Zofran Injection) 4 mg IVPUSH Q6H PRN PRN Reason: NAUSEA AND/OR VOMITING Pantoprazole Sodium (Protonix Iv) 40 mg IVPUSH BID [facility] Last Admin: 06/07/17 09:59 Dose: 40 mg Spironolactone (Aldactone -) 25 mg PO DAILY [facility] Last Admin: 06/07/17 10:00 Dose: 25 mg Torsemide (Demadex -) 20 mg PO DAILY [facility] Last Admin: 06/07/17 09:59 Dose: 20 mg - Objective Vital Signs: Vital Signs Temperature 97.8 F 06/07/17 14:00 Pulse Rate 63 06/07/17 14:00 Respiratory Rate 20 06/07/17 12:38 Blood Pressure 144/74 06/07/17 14:00 O2 Sat by Pulse Oximetry (%) 94 L 06/07/17 09:00 Labs: CBC, BMP 06/07/17 05:05 06/07/17 05:05 INR, PTT INR 1.16 (0.82-1.09) H 05/31/17 09:40 Problem List - Problems (1) Colonic mass Code(s): K63.9 - DISEASE OF INTESTINE, UNSPECIFIED (2) Cecum mass Code(s): K63.9 - DISEASE OF INTESTINE, UNSPECIFIED Assessment/Plan Pre-op optimization as per Sx/Cardio team
--- NOTE | 2017-06-07 18:50 | PN ---
Progress Note, Physician Chief Complaint: right colon mass History of Present Illness: 72 yo female PMH COPD(home oxygen, concentrator), Afib (on xarelto), DM type 2 ( on metformin) , HTN, morbid obesity, HLD, peripheral venous stasis, h/o DVT who presented to the ED with worsening sob, dyspnea and generalized weakness and was admitted to telemetry for further evaluation. s/p IVC filter placement for Left LE DVT, awaiting a repeat echocardiogram to better characterize her ( moderate vs. severe) and current CHF. - Current Medication List Current Medications: Active Medications Albuterol/Ipratropium (Duoneb -) 1 amp NEB Q6H PRN PRN Reason: SHORTNESS OF BREATH Last Admin: 06/07/17 07:26 Dose: 1 amp Atorvastatin Calcium (Lipitor -) 20 mg PO HS [facility] Last Admin: 06/06/17 23:36 Dose: 20 mg Digoxin (Lanoxin -) 0.125 mg PO DAILY [facility] Last Admin: 06/06/17 09:53 Dose: 0.125 mg Diltiazem HCl (Cardizem Cd -) 240 mg PO DAILY [facility] Last Admin: 06/07/17 10:00 Dose: 240 mg Emollient Ointment (Aquaphor -) 1 applic TP BID [facility] Last Admin: 06/07/17 10:00 Dose: 1 applic Insulin Aspart (Novolog Vial Sliding Scale -) 1 vial SQ TIDAC [facility] PRN Reason: Protocol Last Admin: 06/07/17 17:01 Dose: Not Given Methimazole (Tapazole -) 10 mg PO DAILY [facility] Last Admin: 06/07/17 10:00 Dose: 10 mg Nystatin (Mycostatin Cream -) 1 applic TP BID [facility] Last Admin: 06/07/17 10:00 Dose: 1 applic Ondansetron HCl (Zofran Injection) 4 mg IVPUSH Q6H PRN PRN Reason: NAUSEA AND/OR VOMITING Pantoprazole Sodium (Protonix Iv) 40 mg IVPUSH BID [facility] Last Admin: 06/07/17 09:59 Dose: 40 mg Spironolactone (Aldactone -) 25 mg PO DAILY [facility] Last Admin: 06/07/17 10:00 Dose: 25 mg Torsemide (Demadex -) 20 mg PO DAILY [facility] Last Admin: 06/07/17 09:59 Dose: 20 mg - Objective Vital Signs: Vital Signs Temperature 97.9 F 06/07/17 17:00 Pulse Rate 58 L 06/07/17 17:00 Respiratory Rate 20 06/07/17 17:00 Blood Pressure 136/58 06/07/17 17:00 O2 Sat by Pulse Oximetry (%) 94 L 06/07/17 09:00 Vital Signs Period Temp Pulse Resp BP Sys/[place] Pulse Ox Last 24 Hr 97.8 F-98.7 F 58-63 20-20 115-144/58-82 94-94 Constitutional: Yes: No Distress, Calm, Obese HENT: Yes: Atraumatic, Normocephalic Neck: Yes: Supple, Trachea Midline Respiratory: Yes: Regular, CTA Bilaterally Gastrointestinal: Yes: Normal Bowel Sounds, Soft, Abdomen, Obese. No: Tenderness Extremities: Yes: Calf Tenderness. No: Cold, Cool (l) Neurological: Yes: Alert, Oriented Psychiatric: Yes: Alert, Oriented Labs: CBC, BMP 06/07/17 05:05 06/07/17 05:05 INR, PTT INR 1.16 (0.82-1.09) H 05/31/17 09:40 Problem List - Problems (1) Colon adenocarcinoma Assessment/Plan: 72 yo female MMP with chronic blood loss anemia, weakness, and a newly diagnosed invasive adenocarcinoma in the ascending colon. She is ammenable to the idea of having surgery if it is indicated but expressed concern about her fitness for such a procedure. Cardiology evaluation cardiac optimization given , high perioperative risk for an event based on severe and decompensated CHF. She had an acute left common femoral DVT, s/p filter placement. We had a long discussion about her diagnosis and treatment options. She understands and would like to wait for the results if her heart studies before making a final decision about surgery. The primary team plant to transfer her to [place] for intervention with her duralumin mechanic. She will have her colon resection there. Preoperative optimization Appreciate and agree with Cardiology and Pulmonary reccomendations Nutritional optimization Will discuss with primary team Code(s): C18.9 - MALIGNANT NEOPLASM OF COLON, UNSPECIFIED (2) Cecum mass Code(s): K63.9 - DISEASE OF INTESTINE, UNSPECIFIED (3) Anemia Code(s): D64.9 - ANEMIA, UNSPECIFIED Qualifiers: Iron deficiency anemia type: chronic blood loss (4) COPD (chronic obstructive pulmonary disease) Code(s): J44.9 - CHRONIC OBSTRUCTIVE PULMONARY DISEASE, UNSPECIFIED (5) Morbid obesity due to excess calories Code(s): E66.01 - MORBID (SEVERE) OBESITY DUE TO EXCESS CALORIES
--- NOTE | 2017-06-07 20:37 | PN ---
Physical Exam: SUBJECTIVE: Patient seen and examined, no acute events. breathin is better on 4 L nC . pending transfer to [place]. OBJECTIVE: Vital Signs Period Temp Pulse Resp BP Sys/[place] Pulse Ox Last 24 Hr 97.8 F-98.7 F 58-63 20-20 115-144/58-82 94-94 ENERAL: The patient is awake, alert, and fully oriented, in no acute distress. HEAD: Normal with no signs of trauma. EYES: sclera anicteric, conjunctiva clear. ENT: dry mucous membranes. NECK: supple.+ JVD LUNGS:B/l base crackles, no wheezes, no crackles, no accessory muscle use. HEART: Regular rate and rhythm, S1, S2 3/6 systolic murmur LUSB , no rub or gallop. ABDOMEN: Obese Soft, nontender, nondistended, normoactive bowel sounds, no guarding, no rebound. EXTREMITIES: 2+ pulses, warm, well-perfuse,+1 edema with erythema and peripheral venous changes NEUROLOGICAL: NO focal deficit. Normal speech, gait not observed. PSYCH: Normal mood, normal affect. SKIN: Warm, dry,erythematous rash beneath the breast Laboratory Results - last 24 hr 06/07/17 06/07/17 06/07/17 05:05 05:05 05:47 WBC 7.1 RBC 3.95 Hgb 10.4 L Hct 32.4 MCV 82.0 MCH 26.3 MCHC 32.1 RDW 23.6 H Plt Count 183 MPV 9.1 Hypersegmented Neuts Cancelled Hypochromia Cancelled Toxic Granulation Cancelled Dohle Bodies Cancelled Polychromasia Cancelled Poikilocytosis Cancelled Basophilic Stippling Cancelled Anisocytosis Cancelled Microcytosis Cancelled Macrocytosis Cancelled Spherocytes Cancelled Siderocytes Cancelled Sickle Cells Cancelled Target Cells Cancelled Tear Drop Cells Cancelled Ovalocytes Cancelled Stomatocytes Cancelled Helmet Cells Cancelled [place]-Orion Bodies Cancelled [place] Rings Cancelled Harshal Cells Cancelled Acanthocytes (Spur) Cancelled Rouleaux Cancelled Fragmented RBCs Cancelled Schistocytes Cancelled Morphology Comment Cancelled Sodium 143 Potassium 4.4 Chloride 106 Carbon Dioxide 26 Anion Gap 11 BUN 24 H Creatinine 1.4 H POC Glucometer 136 Random Glucose 120 H Calcium 8.0 L 06/07/17 11:41 WBC RBC Hgb Hct MCV MCH MCHC RDW Plt Count MPV Hypersegmented Neuts Hypochromia Toxic Granulation Dohle Bodies Polychromasia Poikilocytosis Basophilic Stippling Anisocytosis Microcytosis Macrocytosis Spherocytes Siderocytes Sickle Cells Target Cells Tear Drop Cells Ovalocytes Stomatocytes Helmet Cells Whitehead-Orion Bodies [place] Rings [place] Cells Acanthocytes (Spur) Rouleaux Fragmented RBCs Schistocytes Morphology Comment Sodium Potassium Chloride Carbon Dioxide Anion Gap BUN Creatinine POC Glucometer 116 Random Glucose Calcium Active Medications Generic Name Dose Route Start Last Admin Trade Name Freq PRN Reason Stop Dose Admin Albuterol/Ipratropium 1 amp 06/04/17 11:50 06/07/17 07:26 Duoneb - NEB 1 amp Q6H PRN Administration SHORTNESS OF BREATH Atorvastatin Calcium 20 mg 06/04/17 22:00 06/06/17 23:36 Lipitor - PO 20 mg HS RABIA Administration Digoxin 0.125 mg 06/06/17 10:00 06/06/17 09:53 Lanoxin - PO 0.125 mg DAILY RABIA Administration Diltiazem HCl 240 mg 06/06/17 10:00 06/07/17 10:00 Cardizem Cd - PO 240 mg DAILY RABIA Administration Emollient Ointment 1 applic 06/04/17 22:00 06/07/17 10:00 Aquaphor - TP 1 applic BID RABIA Administration Insulin Aspart 1 vial 06/04/17 16:30 06/07/17 17:01 Novolog Vial Sliding Scale - SQ Not Given TIDAC [facility] Protocol Methimazole 10 mg 06/06/17 16:15 06/07/17 10:00 Tapazole - PO 10 mg DAILY RABIA Administration Nystatin 1 applic 06/04/17 22:00 06/07/17 10:00 Mycostatin Cream - TP 1 applic BID RABIA Administration Ondansetron HCl 4 mg 06/04/17 11:31 Zofran Injection IVPUSH Q6H PRN NAUSEA AND/OR VOMITING Pantoprazole Sodium 40 mg 06/04/17 22:00 06/07/17 09:59 Protonix Iv IVPUSH 40 mg BID RABIA Administration Spironolactone 25 mg 06/05/17 10:00 06/07/17 10:00 Aldactone - PO 25 mg DAILY RABIA Administration Torsemide 20 mg 06/07/17 10:00 06/07/17 09:59 Demadex - PO 20 mg DAILY RABIA Administration CBC, BMP 06/07/17 05:05 06/07/17 05:05 ASSESSMENT/PLAN: Ms. Shaikh is a 72 year old female with pmhx of copd(home o2 ), Afib (on xarelto ), DMII, HTN, HLD, peripheral venous stasis, h/o DVT who presented to the ED with worsening sob, dyspnea and generalized weakness was found to have hgb of 5.3 and was admitted to [facility] for further evaluation. for Sever symptomatic microcytic anemia 2/2 cecum mass and fragile polyp , she was presented with hgb 5.3 , S/P 4 units PRBCS , h/h has been stable ,Iron studies , b12, folic acid , WNL.GI consult S/P EGD/ Colonoscopy: cecum mass 2x2 mass in ascending colon, sessile polyp in transverse colon and two polyps in rectum. Biopsies were taken.Dr Angel surgery was consulted. agreed with transfer to [facility]. pathology report:Tubular adenoma transverse colon, cecum with villous adenoma, ascending colon invasive adenocarcioma,hyperplastic polyp in rectum.and Pending colon mass pathology. pt is High risk for surgery in term of moderate to sever , CHF, Afib on amiodaron, Hyperthyroidism , new onset DVT.pt has a H/O DVT , we hold on xarelto in term of possible bleeding.US lower ext with clot in left common femoral vein can not use AC now due to risk of bleeding . IVC filter placed by vascular.pt with moderate to sever Aortic stenosis will transfer to [place] for possible valvuloplasty. for Hyperthyroidism pt has low TSH, elevated Ft4 , normal Ft3 ,DR huang consulted recommend thyroid US and Methemazole 10 mg QD daily Thyroglobulin and TSI, IL6 were pending . for Acute on chronic respiratory failure , resolving ,likely due to anemia vs COPD exacerbation vs CHF exacerbation unlikely O2 as needed to keep O2 >89% , Duo-neb PRN ,CX ray with cardiomegaly and mild congestion,cont spirnolactone 25 mg po daily. For JOHNY on chronic CKD , resolving, S/P 4 units PRBCSpt has AFIB /CHF rate are controlled we DC Amiodarone 200 mg po daily due to hyperthyroidism ,start her on deltizim 240 mg po daily as discussed with her mysql database developer, hold xarelto due to possible bleeding.daily weight , I&O, 2L water restriction , LASIX as needed . for DMII last HGBA1c 5.2 per pt ,Hold metformin ISS, ,BGM TID AC and follow Diabetic diet pt has Morbid obesity BMI 53.7consulted about losing weight and modified life style For HTN she is on lasix 20 mg PRN and Spirnolactone 25 mg po daily for HLD cont Lipitor 20 mg po daily. pt has Tinea corporis ,beneath the breast started on Nystain 1% cream topical TID. peripheral venous changes , stable chronic for the last 2 years we hold xarelto ,apply aquaphor TP BID pt has H/O left femoral fx 2 years ago, no surgery was performed , was bed bounded for 3 months after that. pt is hemodynamically stable upon transfer to [place] for possibel valvuloplasty. Visit type - Emergency Visit Emergency Visit: Yes ED Registration Date: 05/30/17 Care time: The patient presented to the Emergency Department on the above date and was hospitalized for further evaluation of their emergent condition. - New Patient This patient is new to me today: No - Critical Care Critical Care patient: No - Discharge Referral Referred to [facility] No
[2017-06-07] MEDS: ATORVASTATIN CA 20 MG TABLET (FP) PO SCH (22:00)
[2017-06-08] MEDS: INSULIN SLIDING SCALE (NOVOLOG) 1 VIAL SQ SCH ×3 (06:12→16:50)
[2017-06-08] MEDS ORDERED: PT OWN MED DRAWER 7, Y5N ONE (09:45)
[2017-06-08] MEDS: NYSTATIN 100,000 UNIT/GM TOPICAL CREAM 15 GM TUBE TP SCH (09:46)
[2017-06-08] MEDS: MINERAL OIL/PET HY-PHL TOPICAL OINTMENT 454 GM JAR TP SCH (09:46)
[2017-06-08] MEDS: SPIRONOLACTONE 25 MG TABLET (FP) PO SCH (09:46)
[2017-06-08] MEDS: TORSEMIDE 20 MG TABLET (FP) PO SCH (09:46)
[2017-06-08] MEDS: METHIMAZOLE 10 MG TABLET (FP) PO SCH (09:46)
[2017-06-08] MEDS: PANTOPRAZOLE SODIUM 40 MG VIAL IVPUSH SCH (09:46)
--- NOTE | 2017-06-08 10:00 | PN ---
Progress Note (short form) - Note Progress Note: Denies any complaints Vital Signs Period Temp Pulse Resp BP Sys/[place] Pulse Ox Last 24 Hr 97.4 F-98.9 F 58-63 20-20 121-144/52-82 94 PE: AOx3 Neck: supple, No JVD HEENT: EOMI Lungs: CTA CVS: S1 S2 Abd: Benign EXt: Stasis changes b/l legs Neuro: No focal deficit CMP Sodium 143 mmol/L (136-145) 06/07/17 05:05 Potassium 4.4 mmol/L (3.5-5.1) 06/07/17 05:05 Chloride 106 mmol/L (98-107) 06/07/17 05:05 Carbon Dioxide 26 mmol/L (21-32) 06/07/17 05:05 Anion Gap 11 (8-16) 06/07/17 05:05 BUN 24 mg/dL (7-18) H 06/07/17 05:05 Creatinine 1.4 mg/dL (0.55-1.02) H 06/07/17 05:05 Creat Clearance w eGFR 36.76 (>60) 06/06/17 05:05 POC Glucometer 132 UNITS (80-120) 06/08/17 05:24 Random Glucose 120 mg/dL (74-106) H 06/07/17 05:05 Hemoglobin A1c % 5.2 % (4.8-6.0) 05/30/17 12:00 Calcium 8.0 mg/dL (8.5-10.1) L 06/07/17 05:05 Phosphorus 3.9 mg/dL (2.5-4.9) 06/05/17 06:30 Magnesium 1.9 mg/dL (1.8-2.4) 06/05/17 06:30 Iron 11 ug/dL (27-139) L 05/30/17 12:00 TIBC 362 ug/dL (250-450) 05/30/17 12:00 Iron Saturation 3 % (15-55) L 05/30/17 12:00 Transferrin 292 mg/dL (200-370) 05/30/17 13:55 Ferritin 8.703 ng/ml (6.9-282.5) 05/30/17 13:55 Total Bilirubin 1.0 mg/dL (0.2-1.0) 06/06/17 05:05 AST 15 U/L (15-37) 06/06/17 05:05 ALT 7 U/L (12-78) L 06/06/17 05:05 Alkaline Phosphatase 67 U/L (45-117) 06/06/17 05:05 LD Total 215 U/L (91-180) H 06/01/17 06:48 Creatine Kinase 28 IU/L (26-192) 05/30/17 13:10 Troponin I 0.02 ng/ml (0.00-0.05) 05/31/17 00:40 B-Natriuretic Peptide 941.01 pg/ml (5-125) H 05/30/17 13:10 Total Protein 5.3 g/dl (6.4-8.2) L 06/06/17 05:05 Albumin 2.9 g/dl (3.4-5.0) L 06/06/17 05:05 Vitamin B12 452 pg/ml (180-914) 06/01/17 06:48 Serum Folate 9 ng/ml (3.1-17.5) 06/01/17 06:48 TSH 0.07 uIU/ml (0.358-3.74) L 06/06/17 05:05 Free T4 1.92 ng/dl (0.76-1.46) H 06/06/17 05:05 Free T3 1.8 pg/ml (2.0-4.4) L 06/06/17 05:05 Current Medications Generic Name Dose Route Start Last Admin Trade Name Freq PRN Reason Stop Dose Admin Albuterol/Ipratropium 1 amp 06/04/17 11:50 06/07/17 07:26 Duoneb - NEB 1 amp Q6H PRN Administration SHORTNESS OF BREATH Atorvastatin Calcium 20 mg 06/04/17 22:00 06/07/17 22:00 Lipitor - PO 20 mg HS RABIA Administration Digoxin 0.125 mg 06/06/17 10:00 06/06/17 09:53 Lanoxin - PO 0.125 mg DAILY RABIA Administration Diltiazem HCl 240 mg 06/06/17 10:00 06/08/17 09:46 Cardizem Cd - PO 240 mg DAILY RABIA Administration Emollient Ointment 1 applic 06/04/17 22:00 06/08/17 09:46 Aquaphor - TP 1 applic BID RABIA Administration Insulin Aspart 1 vial 06/04/17 16:30 06/08/17 06:12 Novolog Vial Sliding Scale - SQ Not Given TIDAC [facility] Protocol Methimazole 10 mg 06/06/17 16:15 06/08/17 09:46 Tapazole - PO 10 mg DAILY RABIA Administration Nystatin 1 applic 06/04/17 22:00 06/08/17 09:46 Mycostatin Cream - TP 1 applic BID RABIA Administration Ondansetron HCl 4 mg 06/04/17 11:31 Zofran Injection IVPUSH Q6H PRN NAUSEA AND/OR VOMITING Pantoprazole Sodium 40 mg 06/04/17 22:00 06/08/17 09:46 Protonix Iv IVPUSH 40 mg BID RABIA Administration Spironolactone 25 mg 06/05/17 10:00 06/08/17 09:46 Aldactone - PO 25 mg DAILY RABIA Administration Torsemide 20 mg 06/07/17 10:00 06/08/17 09:46 Demadex - PO 20 mg DAILY RABIA Administration AP: Abnormal TFT: Low TSH, high FT4 and normal FT3 ?Amiodarone induced hyperthyroidism vs Graves vs Toxic nodules TSH 0.07 , FT4 1.92 , FT3 1.8, TG 7 WNL IL6 pending Started on Methimazole 10mg QD USG of thyroid Will f/u Anemia Colon Ca T2DM Problem List - Problems (1) Anemia Code(s): D64.9 - ANEMIA, UNSPECIFIED Qualifiers: Iron deficiency anemia type: chronic blood loss (2) COPD (chronic obstructive pulmonary disease) Code(s): J44.9 - CHRONIC OBSTRUCTIVE PULMONARY DISEASE, UNSPECIFIED (3) Colon adenocarcinoma Code(s): C18.9 - MALIGNANT NEOPLASM OF COLON, UNSPECIFIED (4) Hyperthyroidism Code(s): E05.90 - THYROTOXICOSIS, UNSP WITHOUT THYROTOXIC CRISIS OR STORM (5) Morbid obesity due to excess calories Code(s): E66.01 - MORBID (SEVERE) OBESITY DUE TO EXCESS CALORIES
--- NOTE | 2017-06-08 11:23 | PN ---
Progress Note (short form) - Note Progress Note: s: no cp dizzy palps sob o: Vital Signs Period Temp Pulse Resp BP Sys/[place] Pulse Ox Last 24 Hr 97.4 F-98.9 F 58-63 20-20 121-144/52-82 94-95 nad no jvd rrr s1s2 no r/g, + murmur cta bl nl eff pitting/nonpitting edema le bl with chronic stasis changes abd nt nd pos bs no jaundice diaphoresis Current Medications Generic Name Dose Route Start Last Admin Trade Name Freq PRN Reason Stop Dose Admin Albuterol/Ipratropium 1 amp 06/04/17 11:50 06/07/17 07:26 Duoneb - NEB 1 amp Q6H PRN Administration SHORTNESS OF BREATH Atorvastatin Calcium 20 mg 06/04/17 22:00 06/07/17 22:00 Lipitor - PO 20 mg HS RABIA Administration Digoxin 0.125 mg 06/06/17 10:00 06/06/17 09:53 Lanoxin - PO 0.125 mg DAILY RABIA Administration Diltiazem HCl 240 mg 06/06/17 10:00 06/08/17 09:46 Cardizem Cd - PO 240 mg DAILY RABIA Administration Emollient Ointment 1 applic 06/04/17 22:00 06/08/17 09:46 Aquaphor - TP 1 applic BID RABIA Administration Insulin Aspart 1 vial 06/04/17 16:30 06/08/17 06:12 Novolog Vial Sliding Scale - SQ Not Given TIDAC [facility] Protocol Methimazole 10 mg 06/06/17 16:15 06/08/17 09:46 Tapazole - PO 10 mg DAILY RABIA Administration Nystatin 1 applic 06/04/17 22:00 06/08/17 09:46 Mycostatin Cream - TP 1 applic BID RABIA Administration Ondansetron HCl 4 mg 06/04/17 11:31 Zofran Injection IVPUSH Q6H PRN NAUSEA AND/OR VOMITING Pantoprazole Sodium 40 mg 06/04/17 22:00 06/08/17 09:46 Protonix Iv IVPUSH 40 mg BID RABIA Administration Spironolactone 25 mg 06/05/17 10:00 06/08/17 09:46 Aldactone - PO 25 mg DAILY RABIA Administration Torsemide 20 mg 06/07/17 10:00 06/08/17 09:46 Demadex - PO 20 mg DAILY RABIA Administration CBC, BMP 06/07/17 05:05 06/07/17 05:05 ecg 05/30/17: sr, rbbb, nl intervals, no st changes cxr: 06/05 images and report reviewed. Mild congestive changes. cxr: mild congestion echo 05/2017: nl lv/rv, mod as (peak/mean gradients 68/36, WOO 1.1. LVOT 2.0, LVOT VTI = 39) repeat echo 05/2017: mod-sev , mild-mod ar tele: sr a/p: 72 f hx copd, afib, dm, htn, hld, venous insuff/le edema, here with ceja. sob, cp, anemia, acute diast chf: -no signs chf or acs (trop negx3) -likely sxs due to severe anemia with hgb in 5s. After prbcs pt reports feeling better, and feels she is at her copd baseline as far as nonexertional, mild breathlessness - 05/31: received IV lasix 20 mg x 1. -06/02: evidence of decompensated chf with elevated JVD on exam. CXR diffuse markings (without vasc redistribution) = ? interstitial edema. lasix 40mg IVP x 1 given. -06/03: 4100 cc UOP yesterday, wt unchanged. remains with same LE edema and JVD. states drinks a lot of water--rec 2L fluid restriction. lasix 40 mg IVP x 2. - 06/04: Cr worsened on IV lasix, will hold today and reassess lower dose tomorrow. s/p IVC filter placement today. echo pending -assess weights, labs daily - 06/05: patient with slightly worsened creatinine today after holding lasix. gentle maintenance fluids started today. Would recheck bmp in afternoon to assess direction of creatinine IVF considering total body volume overload and mild congestion on cxr, etc.. Consider starting po diuretic regimen tomorrow. May benefit from torsemide over lasix, will start with trial of torsemide 20 mg/ day. -06/06: ivfs off, will start torsemide 20 po qd now -06/07-9: cont po torsemide aortic stenosis: -mod-sev as -no signs chf -monitor for now pafib: -in sr now -cont amio for now--may need to reconsider in light of new hyperthyroidism-- defer to outpt hvac technician - 06/05 pmd discussed with outpatient hvac technician. He had not prescribed amiodarone and per report patient was taking amiodarone infrequently. Outpatient hvac technician recs stopping amiodarone and resuming prior outpatient dilitazem. -was on xarelto, holding due to severe anemia DVT (L CFV): -AC on hold sec to GIB. now s/p IVC filter 06/04 colon mass, preop CV eval: -gi eval found colon mass, likely will need surgery. dr garcia consulted. -Revised CV Risk Index = 1, unknown functional status -currently suspect mildly decompensated chf--optimizing this prior to surgery -suspect severe but this needs to be confirmed with repeat echo, as disc'd above. -if severe present, this will impart high risk of periop CV complications. if appears moderate, her risk will be in the intermediate range. -appreciate dr garcia note re: surgery at tertiary care center. -d/w'd dr zamarripa 06/03: in light of chf, severe (or borderline), new DVT, hyperthyroidism in setting of pt on prior amio, agree her risk of periop CHF is high /and would be ideal for her to be in a tertiary care center where her hvac technician is ([facility], Dr. Larios) in case of complications... - 06/05 discussed with pmd. possible plan for transfer to [facility] [place] under care of her outpatient hvac technician as mentioned above. copd: -pt reports this dx, with chronic sob she attributes -stable, no signs a.e. renal insufficiency: -creat 1.5-1.6 here, no baseline data available -trend labs daily for now htn: -reasonably controlled -cont aldactone. starting diltiazem 06/05, monitor. hyperthyroidism: -low TSH, elevated free T4 - pt on amiodarone. management per hospitalist/ endocrine venous insuff/le edema: -worsened of late ? due to chf - currently stable. cardiac gerber stable for transfer
--- NOTE | 2017-06-08 13:23 | PN ---
Teaching Attending Note Name of Resident: Taurus Andreson ATTENDING PHYSICIAN STATEMENT I saw and evaluated the patient. I reviewed the resident's note and discussed the case with the resident. I agree with the resident's findings and plan as documented. SUBJECTIVE: no fever or chills, stable SOB , with no events OBJECTIVE: NAD, awake ,alert CV: RRR, 5/6 SM at base and LLSB Lungs : CTAB Abd: soft, NT, ND , NL BS Ext: erythema, skin thickening and mild hyperpigmentation on Legs. pitting edema stable compared to yesterday ASSESSMENT AND PLAN: 72 y/o lady with h/o HTN, A fib, COPD , D CHF, DVT/PE and other medical problems who presneted with SOB and was found t have severe iron def anemia. 1- Severe iron def anemia, 2/2 invasive adenocarcinoma of colon. stable HB cont to hold AC 2- Acute Diastolic heart failure: improved - Cont torsemide -dc barrett 3- Invasive Adenocarcinoma of colon: - will need surgery - CT w/o contrast does not show mets ( thyroid nodules only and adrenal nodule ) - pending transfer to [place] 4- P A fib: - off amio - cont cardizem and digoxin - no events on tele today - off AC despite risk of stroke due to severe anemia. - resumption of her xarelto to be revisited after her surgical resection of tumor 5- Acute DVT: s/p IVC filter. can't anticoagulate now need f/u on this filter in 3 months 6- DM: hold metformin and cont SSI. 7- JOHNY on CKD: cont to monitor with diuresis dc barrett 5- hyperthyroidism: cont methimazole dispo :Accepted for transfer . pending a bed
[2017-06-08 15:05] VITALS: BP 142/54; PULSE 65; TEMP 97.4
[2017-06-08 16:29] LABS: THYROID STIM IMMUNOGLOBULIN <0.10 IU/L (0.00-0.55)
== END 2017-06-08 17:13 | disposition short-term general hospital (02) | DRG 356 ==
LOC: JER 11:54 → SUPCPDRO 11:54 → JERBED 16:24 → J4W 18:55
PROVIDERS: ADMIT Internal Medicine; ATTEND Internal Medicine
PROC: 06H03DZ Insertion of Intraluminal Device into Inferior Vena Cava, Percutaneous Approach (ICD-10-PCS; principal; 2017-05-30)
PROC: 30233H1 Transfusion of Nonautologous Whole Blood into Peripheral Vein, Percutaneous Approach (ICD-10-PCS; 2017-05-30)
PROC: 5A09357 Assistance with Respiratory Ventilation, Less than 24 Consecutive Hours, Continuous Positive Airway Pressure (ICD-10-PCS; 2017-05-30)
PROC: 5A09457 Assistance with Respiratory Ventilation, 24-96 Consecutive Hours, Continuous Positive Airway Pressure (ICD-10-PCS; 2017-05-30)
PROC: 0DD68ZX Extraction of Stomach, Via Natural or Artificial Opening Endoscopic, Diagnostic (ICD-10-PCS; 2017-05-31)
PROC: 0DBP8ZX Excision of Rectum, Via Natural or Artificial Opening Endoscopic, Diagnostic (ICD-10-PCS; 2017-06-01)
PROC: 0DBL8ZX Excision of Transverse Colon, Via Natural or Artificial Opening Endoscopic, Diagnostic (ICD-10-PCS; 2017-06-01)
DX: C18.9 Malignant neoplasm of colon, unspecified (principal); I50.31 Acute diastolic (congestive) heart failure; D62 Acute posthemorrhagic anemia; N17.9 Acute kidney failure, unspecified; J44.1 Chronic obstructive pulmonary disease with (acute) exacerbation; I82.4Z2 Acute embolism and thrombosis of unspecified deep veins of left distal lower extremity; Z68.42 Body mass index [BMI] 45.0-49.9, adult; D50.9 Iron deficiency anemia, unspecified; E66.01 Morbid (severe) obesity due to excess calories; D63.0 Anemia in neoplastic disease; I48.0 Paroxysmal atrial fibrillation; Z99.81 Dependence on supplemental oxygen; Z79.01 Long term (current) use of anticoagulants; E11.9 Type 2 diabetes mellitus without complications; I10 Essential (primary) hypertension; D12.8 Benign neoplasm of rectum; D12.3 Benign neoplasm of transverse colon; K57.30 Diverticulosis of large intestine without perforation or abscess without bleeding; E78.5 Hyperlipidemia, unspecified; Z79.84 Long term (current) use of oral hypoglycemic drugs; Z87.891 Personal history of nicotine dependence; Z86.718 Personal history of other venous thrombosis and embolism; Z96.652 Presence of left artificial knee joint; K44.9 Diaphragmatic hernia without obstruction or gangrene; K29.70 Gastritis, unspecified, without bleeding; K64.4 Residual hemorrhoidal skin tags; I87.8 Other specified disorders of veins; I35.0 Nonrheumatic aortic (valve) stenosis; E05.90 Thyrotoxicosis, unspecified without thyrotoxic crisis or storm; C18.2 Malignant neoplasm of ascending colon; B35.4 Tinea corporis
CPT/HCPCS: 36415; 36430; 71045-TC-FY; 71250-TC; 74176-TC; 76000-TC-FY; 80048; 80053; 81003; 81015; 82272; 82378; 82550; 82607; 82728; 82746; 82803; 82962; 83010; 83036; 83520; 83540; 83550; 83615; 83735; 83880; 84100; 84439; 84443; 84445; 84466; 84481; 84484; 85025; 85027; 85044; 85610; 85730; 86376; 86850; 86900; 86901; 86922; 87086; 88305-TC; 93005; 93010; 93306-TC; 93970-TC; 94640; 94660; 94760; 97116-GP; 97161-GP; 99285-25; J0131; J1644; J7030; J7620; P9038; P9058